=== PATIENT | female | born 1950 | race Caucasian/White ===

== ENCOUNTER → 2020-06-27 09:15 | Outpatient (BNVA) | payer MEDICARE, SELFPAY | PROVIDERS: PCP Internal Medicine; Referring Provider Internal Medicine; Visit Provider Internal Medicine | DX: I48.20 Chronic atrial fibrillation, unspecified (principal); Z51.81 Encounter for therapeutic drug level monitoring; Z79.01 Long term (current) use of anticoagulants | CPT/HCPCS: 85610; 99211 ==

== ENCOUNTER → 2020-07-09 09:36 | Outpatient (BNVA) | payer MEDICARE, SELFPAY | PROVIDERS: PCP Internal Medicine; Visit Provider Internal Medicine | DX: I48.20 Chronic atrial fibrillation, unspecified (principal); Z51.81 Encounter for therapeutic drug level monitoring; Z79.01 Long term (current) use of anticoagulants | CPT/HCPCS: 85610; 99211 ==

== ENCOUNTER 2020-07-23 07:55 | Outpatient (REF) | payer MEDICARE, SELFPAY ==
[2020-07-23 11:42] LABS: Hematocrit 36.6 % (37-47); Hemoglobin 11.2 g/dl (12.0-16.0); Mean Corpuscular HGB Conc 30.6 g/dl (31.0-35.0); Mean Corpuscular Hemoglobin 28.9 pg (27.0-33.0); Mean Corpuscular Volume 94.3 fL (80-98); Platelet Count 231 X10*3/uL (160-400); Red Blood Count 3.88 X10*6/uL (4.20-5.50); Red Cell Distribution Width 14.7 % (11.0-16.0); White Blood Count 7.2 X10*3/uL (4.8-10.8)
[2020-07-23 11:50] LABS: Estimated Average Glucose 148 mg/dL; Hemoglobin A1c % 6.8 %
[2020-07-23 11:54] LABS: Alanine Aminotransferase 14 U/L (0-31); Anion Gap 13 (12-20); Aspartate Amino Transferase 12 U/L (5-31); Blood Urea Nitrogen 24 mg/dL (9-16); Calcium 8.9 mg/dL (8.4-10.2); Carbon Dioxide 27 mmol/L (22-29); Chloride 106 mmol/L (96-108); Cholesterol 168 mg/dL; Estimated Glomerular Filt Rate 52; Glucose Fasting 173 mg/dL (60-99); HDL Cholesterol 39 mg/dL; LDL Cholesterol Calculated 89 mg/dl; Potassium 5.2 mmol/l (3.3-5.1); Sodium 141 mmol/L (135-145); Triglycerides 200 mg/dL
[2020-07-23 12:02] LABS: Ferritin 22 ng/mL (10-250); Vitamin D 25-OH Total 49.3 ng/mL (>30)
[2020-07-23 14:28] LABS: Creatinine Urine 80.59 mg/dL; Microalbum/Creatinine Ratio Ur 68.2 ug/mg cr
== END 2020-07-23 07:56 | disposition home or self-care (01) ==
LOC: HO.HMGCLDS 07:55
PROVIDERS: PCP Internal Medicine; Visit Provider Internal Medicine
DX: I48.91 Unspecified atrial fibrillation (principal); E11.9 Type 2 diabetes mellitus without complications; D50.9 Iron deficiency anemia, unspecified; E78.5 Hyperlipidemia, unspecified; Z78.0 Asymptomatic menopausal state
CPT/HCPCS: 36415; 80048; 80061; 82043; 82306; 82728; 83036; 84450; 84460; 85027

== ENCOUNTER → 2020-07-25 09:21 | Outpatient (BNVA) | payer MEDICARE, SELFPAY | PROVIDERS: PCP Internal Medicine; Visit Provider Internal Medicine | DX: I48.20 Chronic atrial fibrillation, unspecified (principal); Z51.81 Encounter for therapeutic drug level monitoring; Z79.01 Long term (current) use of anticoagulants | CPT/HCPCS: 85610; 99211 ==

== ENCOUNTER → 2020-08-29 09:45 | Outpatient (BNVA) | payer MEDICARE, SELFPAY | PROVIDERS: PCP Internal Medicine; Visit Provider Internal Medicine | DX: I48.20 Chronic atrial fibrillation, unspecified (principal); Z51.81 Encounter for therapeutic drug level monitoring; Z79.01 Long term (current) use of anticoagulants | CPT/HCPCS: 85610; 99211 ==

== ENCOUNTER → 2020-09-26 09:50 | Outpatient (BNVA) | payer MEDICARE, SELFPAY | PROVIDERS: PCP Internal Medicine; Visit Provider Internal Medicine | DX: I48.20 Chronic atrial fibrillation, unspecified (principal); Z51.81 Encounter for therapeutic drug level monitoring; Z79.01 Long term (current) use of anticoagulants | CPT/HCPCS: 85610; 99211 ==

== ENCOUNTER → 2020-10-15 09:15 | Outpatient (BNVA) | payer MEDICARE, SELFPAY | PROVIDERS: PCP Internal Medicine; Visit Provider Internal Medicine | DX: I48.20 Chronic atrial fibrillation, unspecified (principal); Z79.01 Long term (current) use of anticoagulants; Z51.81 Encounter for therapeutic drug level monitoring | CPT/HCPCS: 85610; 99211 ==

== ENCOUNTER 2020-11-06 07:41 | Outpatient (REF) | payer MEDICARE, SELFPAY ==
[2020-11-06 11:13] LABS: MANUAL DIFF FLAG NO
[2020-11-06 11:29] LABS: Estimated Average Glucose 157 mg/dL; Hemoglobin A1c % 7.1 %
[2020-11-06 11:37] LABS: Basophils Percent Auto 0.3 % (0-2); Eosinophils Absolute Auto 0.2 X10*3/uL (0.0-0.4); Eosinophils Percent Auto 2.8 % (0-4); Hematocrit 39.7 % (37-47); Hemoglobin 12.2 g/dl (12.0-16.0); Imm Gran Abs Auto 0.04 X10*3/uL (0.00-0.03); Imm Gran Pct Auto 0.6 % (0.0-0.4); Lymphocytes Absolute Auto 2.3 X10*3/uL (1.2-4.9); Lymphocytes Percent Auto 32.3 % (20-40); Mean Corpuscular HGB Conc 30.7 g/dl (31.0-35.0); Mean Corpuscular Hemoglobin 28.7 pg (27.0-33.0); Mean Corpuscular Volume 93.4 fL (80-98); Mean Platelet Volume 12.7 fL (9.4-12.3); Monocytes Absolute Auto 0.5 X10*3/uL (0.1-1.2); Monocytes Percent Auto 6.8 % (2-11); Neutrophils Absolute Auto 4.1 X10*3/uL (2.0-8.3); Neutrophils Percent Auto 57.2 % (45-73); Platelet Count 243 X10*3/uL (160-400); Red Blood Count 4.25 X10*6/uL (4.20-5.50); Red Cell Distribution Width 14.8 % (11.0-16.0); White Blood Count 7.2 X10*3/uL (4.8-10.8)
[2020-11-06 11:53] LABS: Creatinine Urine 72.19 mg/dL; Microalbum/Creatinine Ratio Ur 135.7 ug/mg cr
[2020-11-06 11:54] LABS: Alanine Aminotransferase 17 U/L (0-31); Anion Gap 19 (12-20); Aspartate Amino Transferase 14 U/L (5-31); Blood Urea Nitrogen 30 mg/dL (9-16); Carbon Dioxide 21 mmol/L (22-29); Chloride 107 mmol/L (96-108); Cholesterol 180 mg/dL; Estimated Glomerular Filt Rate 49; Glucose Fasting 146 mg/dL (60-99); HDL Cholesterol 35 mg/dL; LDL Cholesterol Calculated 100 mg/dl; Sodium 142 mmol/L (135-145); Triglycerides 225 mg/dL
[2020-11-06 12:18] LABS: Vitamin D 25-OH Total 50.9 ng/mL (>30)
== END 2020-11-06 07:42 | disposition home or self-care (01) ==
LOC: HO.HMGCLDS 07:41
PROVIDERS: PCP Internal Medicine; Visit Provider Internal Medicine
DX: I48.0 Paroxysmal atrial fibrillation (principal); D64.9 Anemia, unspecified; E11.29 Type 2 diabetes mellitus with other diabetic kidney complication; E78.2 Mixed hyperlipidemia; I10 Essential (primary) hypertension; R80.9 Proteinuria, unspecified; Z78.0 Asymptomatic menopausal state; Z79.01 Long term (current) use of anticoagulants
CPT/HCPCS: 36415; 80048; 80061; 82043; 82306; 83036; 84450; 84460; 85025

== ENCOUNTER → 2020-11-07 09:15 | Outpatient (BNVA) | payer MEDICARE, SELFPAY | PROVIDERS: PCP Internal Medicine; Visit Provider Internal Medicine | DX: I48.20 Chronic atrial fibrillation, unspecified (principal); Z51.81 Encounter for therapeutic drug level monitoring; Z79.01 Long term (current) use of anticoagulants | CPT/HCPCS: 85610; 99211 ==

== ENCOUNTER → 2020-12-05 09:07 | Outpatient (BNVA) | payer MEDICARE, SELFPAY | PROVIDERS: PCP Internal Medicine; Visit Provider Internal Medicine | DX: I48.20 Chronic atrial fibrillation, unspecified (principal); Z51.81 Encounter for therapeutic drug level monitoring; Z79.01 Long term (current) use of anticoagulants | CPT/HCPCS: 85610; 99211 ==

== ENCOUNTER → 2020-12-20 09:33 | Outpatient (BNVA) | payer MEDICARE, SELFPAY | PROVIDERS: PCP Internal Medicine; Visit Provider Internal Medicine | DX: I48.20 Chronic atrial fibrillation, unspecified (principal); Z51.81 Encounter for therapeutic drug level monitoring; Z79.01 Long term (current) use of anticoagulants | CPT/HCPCS: 85610; 99211 ==

== ENCOUNTER → 2021-01-06 09:39 | Outpatient (BNVA) | payer MEDICARE, SELFPAY | PROVIDERS: PCP Internal Medicine; Visit Provider Internal Medicine | DX: I48.20 Chronic atrial fibrillation, unspecified (principal); Z51.81 Encounter for therapeutic drug level monitoring; Z79.01 Long term (current) use of anticoagulants | CPT/HCPCS: 85610; 99211 ==

== ENCOUNTER → 2021-01-22 10:01 | Outpatient (BNVA) | payer MEDICARE, SELFPAY | PROVIDERS: PCP Internal Medicine; Visit Provider Internal Medicine | DX: I48.20 Chronic atrial fibrillation, unspecified (principal); Z51.81 Encounter for therapeutic drug level monitoring; Z79.01 Long term (current) use of anticoagulants | CPT/HCPCS: 85610; 99211 ==

== ENCOUNTER 2021-02-15 07:03 | Outpatient (REF) | payer MEDICARE, SELFPAY ==
[2021-02-15 11:33] LABS: Estimated Average Glucose 154 mg/dL
[2021-02-15 11:47] LABS: Alanine Aminotransferase 18 U/L (0-31); Anion Gap 14 (12-20); Aspartate Amino Transferase 14 U/L (5-31); Blood Urea Nitrogen 29 mg/dL (9-16); Calcium 9.3 mg/dL (8.4-10.2); Carbon Dioxide 26 mmol/L (22-29); Chloride 107 mmol/L (96-108); Cholesterol 220 mg/dL; Estimated Glomerular Filt Rate 51; Glucose Fasting 139 mg/dL (60-99); HDL Cholesterol 37 mg/dL; LDL Cholesterol Calculated 123 mg/dl; Potassium 5.5 mmol/L (3.3-5.1); Sodium 141 mmol/L (135-145); Triglycerides 301 mg/dL
== END 2021-02-15 07:04 | disposition home or self-care (01) ==
LOC: HO.HMGCLDS 07:03
PROVIDERS: PCP Internal Medicine; Visit Provider Internal Medicine
DX: E11.29 Type 2 diabetes mellitus with other diabetic kidney complication (principal); E78.2 Mixed hyperlipidemia; I10 Essential (primary) hypertension; R80.9 Proteinuria, unspecified
CPT/HCPCS: 36415; 80048; 80061; 83036; 84450; 84460

== ENCOUNTER → 2021-02-17 09:38 | Outpatient (BNVA) | payer MEDICARE, SELFPAY | PROVIDERS: PCP Internal Medicine; Visit Provider Internal Medicine | DX: I48.20 Chronic atrial fibrillation, unspecified (principal); Z51.81 Encounter for therapeutic drug level monitoring; Z79.01 Long term (current) use of anticoagulants | CPT/HCPCS: 85610; 99211 ==

== ENCOUNTER 2021-03-11 07:51 | Outpatient (REF) | payer MEDICARE, SELFPAY ==
[2021-03-11 12:05] LABS: Anion Gap 14 (12-20); Blood Urea Nitrogen 25 mg/dL (9-16); Calcium 9.3 mg/dL (8.4-10.2); Carbon Dioxide 27 mmol/L (22-29); Chloride 107 mmol/L (96-108); Estimated Glomerular Filt Rate 55; Glucose Fasting 155 mg/dL (60-99); Potassium 4.9 mmol/L (3.3-5.1); Sodium 143 mmol/L (135-145)
== END 2021-03-11 07:52 | disposition home or self-care (01) ==
LOC: HO.HMGCLDS 07:51
PROVIDERS: PCP Internal Medicine; Visit Provider Internal Medicine
DX: E87.5 Hyperkalemia (principal); I10 Essential (primary) hypertension
CPT/HCPCS: 36415; 80048

== ENCOUNTER → 2021-03-17 09:41 | Outpatient (BNVA) | payer MEDICARE, SELFPAY | PROVIDERS: PCP Internal Medicine; Visit Provider Internal Medicine | DX: I48.20 Chronic atrial fibrillation, unspecified (principal); Z51.81 Encounter for therapeutic drug level monitoring; Z79.01 Long term (current) use of anticoagulants | CPT/HCPCS: 85610; 99211 ==

== ENCOUNTER → 2021-04-14 09:44 | Outpatient (BNVA) | payer MEDICARE, SELFPAY | PROVIDERS: PCP Internal Medicine; Visit Provider Internal Medicine | DX: I48.20 Chronic atrial fibrillation, unspecified (principal); Z51.81 Encounter for therapeutic drug level monitoring; Z79.01 Long term (current) use of anticoagulants | CPT/HCPCS: 85610; 99211 ==

== ENCOUNTER → 2021-05-13 09:58 | Outpatient (BNVA) | payer MEDICARE, SELFPAY | PROVIDERS: PCP Internal Medicine; Visit Provider Internal Medicine | DX: I48.20 Chronic atrial fibrillation, unspecified (principal); Z51.81 Encounter for therapeutic drug level monitoring; Z79.01 Long term (current) use of anticoagulants | CPT/HCPCS: 85610; 99211 ==

== ENCOUNTER 2021-05-14 08:00 | Outpatient (REF) | payer MEDICARE, SELFPAY ==
[2021-05-14 11:32] LABS: Estimated Average Glucose 157 mg/dL; Hemoglobin A1c % 7.1 %
[2021-05-14 12:31] LABS: Alanine Aminotransferase 16 U/L (0-31); Anion Gap 15 (12-20); Aspartate Amino Transferase 14 U/L (5-31); Blood Urea Nitrogen 37 mg/dL (9-16); Calcium 9.3 mg/dL (8.4-10.2); Carbon Dioxide 23 mmol/L (22-29); Chloride 108 mmol/L (96-108); Cholesterol 175 mg/dL; Estimated Glomerular Filt Rate 43; Glucose Fasting 106 mg/dL (60-99); HDL Cholesterol 33 mg/dL; LDL Cholesterol Calculated 95 mg/dl; Potassium 5.4 mmol/L (3.3-5.1); Sodium 141 mmol/L (135-145); Triglycerides 235 mg/dL
[2021-05-14 12:34] LABS: Vitamin D 25-OH Total 47.7 ng/mL (>30)
== END 2021-05-14 08:01 | disposition home or self-care (01) ==
LOC: HO.HMGCLDS 08:00
PROVIDERS: PCP Internal Medicine; Visit Provider Internal Medicine
DX: E87.5 Hyperkalemia (principal); E78.2 Mixed hyperlipidemia; I10 Essential (primary) hypertension; E11.29 Type 2 diabetes mellitus with other diabetic kidney complication; R80.9 Proteinuria, unspecified
CPT/HCPCS: 36415; 80048; 80061; 82306; 83036; 84450; 84460

== ENCOUNTER → 2021-05-28 09:33 | Outpatient (BNVA) | payer MEDICARE, SELFPAY | PROVIDERS: PCP Internal Medicine; Visit Provider Internal Medicine | DX: I48.20 Chronic atrial fibrillation, unspecified (principal); Z51.81 Encounter for therapeutic drug level monitoring; Z79.01 Long term (current) use of anticoagulants | CPT/HCPCS: 85610; 99211 ==

== ENCOUNTER → 2021-06-24 09:38 | Outpatient (BNVA) | payer MEDICARE, SELFPAY | PROVIDERS: PCP Internal Medicine; Visit Provider Internal Medicine | DX: I48.20 Chronic atrial fibrillation, unspecified (principal); Z51.81 Encounter for therapeutic drug level monitoring; Z79.01 Long term (current) use of anticoagulants | CPT/HCPCS: 85610; 99211 ==

== ENCOUNTER → 2021-07-22 09:43 | Outpatient (BNVA) | payer MEDICARE, SELFPAY | PROVIDERS: PCP Internal Medicine; Visit Provider Internal Medicine | DX: Z79.01 Long term (current) use of anticoagulants (principal) | CPT/HCPCS: 85610; 99211 ==

== ENCOUNTER 2021-07-31 10:15 | Outpatient (REF) | payer MEDICARE, SELFPAY ==
--- NOTE | ~2021-07-31 | MM_ITS ---
EXAMINATION: BONE DENSITOMETRY CLINICAL INDICATION: Asymptomatic menopausal state. COMPARISON: Baseline BD dated 06/25/2017. TECHNIQUE: Using a [employer] DXA System (software version: 13.1) manufactured by [employer], dual-energy x-ray absorptiometry was performed of the lumbar spine and left hip. The images are of good technical quality. Summary results are attached. FINDINGS: AP SPINE L1-L4: Current: BMD 1.006 g/cm2, Z-score -0.5, T-score -1.4, osteopenia, 9.7% increase from baseline (<5% change is not significant). Baseline: BMD 0.917 g/cm2. LEFT FEMUR, NECK: Current: BMD 0.707 g/cm2, Z-score -1.1, T-score -2.4, osteopenia. Baseline: BMD 0.736 g/cm2. LEFT FEMUR, TOTAL: Current: BMD 0.805 g/cm2, Z-score -0.6, T-score -1.6, osteopenia, 5.2% decrease from baseline (<5% change is not significant). Baseline: BMD 0.849 g/cm2. IDENTIFIED RISK FACTORS: Menopause. HISTORY OF FRACTURE: None listed. MEDICATIONS: Multivitamins. MM/XR DEXA axial skeleton IMPRESSION: 1. DIAGNOSIS: Osteopenia based on the lowest T-score value of -2.4 in the femoral neck applying World Health Organization criteria. 2. 10-YEAR FRACTURE RISK PREDICTION, FRAX: Major osteoporotic fracture (clinical spine, forearm, hip or shoulder) 13.6%. Hip fracture 3.4%. 3. Treatment Recommendations: NOF guidelines recommend consideration for treatment in postmenopausal women and men age 50 and older presenting with the following: -A hip or vertebral (clinical or morphometric) fracture. -T-score less than or equal to -2.5 at the femoral neck or spine after appropriate evaluation to exclude secondary causes. -Low bone mass at the hip or spine and a 10-year fracture probability by FRAX of greater than or equal to 3% for hip fracture or greater than or equal to 20% for major osteoporotic fracture based on the [place] adapted WHO algorithm. 4. Other Recommendations: All treatment decisions require clinical judgment and consideration of individual patient factors, including patient preferences, comorbidities, previous drug use, risk factors not captured in the FRAX model (e.g. frailty, falls, vitamin D deficiency, increased bone turnover, interval significant decline in bone density) and possible under or overestimation of fracture risk by FRAX. Additional medical evaluation for secondary cause of low bone mineral density may be appropriate. FUTURE SCAN RECOMMENDATION: People with diagnosed cases of osteoporosis or at high risk for fracture should have regular bone mineral density tests. For patients eligible for Medicare, routine testing is allowed once every 2 years. The testing frequency can be increased to one year for patients who have rapidly progressing disease, those who are receiving or discontinuing medical therapy to restore bone mass, or have additional risk factors.
== END 2021-07-31 10:16 | disposition home or self-care (01) ==
LOC: HO.MAMMO 10:15
PROVIDERS: Visit Provider Internal Medicine
DX: Z13.820 Encounter for screening for osteoporosis (principal); M85.89 Other specified disorders of bone density and structure, multiple sites; Z78.0 Asymptomatic menopausal state; Z79.899 Other long term (current) drug therapy
CPT/HCPCS: 77080

== ENCOUNTER → 2021-08-06 10:43 | Outpatient (BNVA) | payer MEDICARE, SELFPAY | PROVIDERS: PCP Internal Medicine; Visit Provider Internal Medicine | DX: I48.20 Chronic atrial fibrillation, unspecified (principal); Z51.81 Encounter for therapeutic drug level monitoring; Z79.01 Long term (current) use of anticoagulants | CPT/HCPCS: 85610; 99211 ==

== ENCOUNTER 2021-08-08 07:29 | Outpatient (REF) | payer MEDICARE, SELFPAY ==
[2021-08-08 12:09] LABS: Estimated Average Glucose 163 mg/dL; Hemoglobin A1c % 7.3 %
[2021-08-08 12:16] LABS: Alanine Aminotransferase 20 U/L (0-31); Anion Gap 15 (12-20); Aspartate Amino Transferase 16 U/L (5-31); Blood Urea Nitrogen 31 mg/dL (9-16); Calcium 9.2 mg/dL (8.4-10.2); Carbon Dioxide 25 mmol/L (22-29); Chloride 104 mmol/L (96-108); Cholesterol 187 mg/dL; Estimated Glomerular Filt Rate 49; Glucose Fasting 138 mg/dL (60-99); HDL Cholesterol 36 mg/dL; LDL Cholesterol Calculated 104 mg/dl; Potassium 4.7 mmol/L (3.3-5.1); Sodium 139 mmol/L (135-145); Triglycerides 239 mg/dL
== END 2021-08-08 07:30 | disposition home or self-care (01) ==
LOC: HO.HMGCLDS 07:29
PROVIDERS: PCP Internal Medicine; Visit Provider Internal Medicine
DX: E87.5 Hyperkalemia (principal); E11.29 Type 2 diabetes mellitus with other diabetic kidney complication; E78.2 Mixed hyperlipidemia; I10 Essential (primary) hypertension; R80.9 Proteinuria, unspecified
CPT/HCPCS: 36415; 80048; 80061; 83036; 84450; 84460

== ENCOUNTER → 2021-08-19 09:45 | Outpatient (BNVA) | payer MEDICARE, SELFPAY | PROVIDERS: PCP Internal Medicine; Visit Provider Internal Medicine | DX: I48.20 Chronic atrial fibrillation, unspecified (principal); Z51.81 Encounter for therapeutic drug level monitoring; Z79.01 Long term (current) use of anticoagulants | CPT/HCPCS: 85610; 99211 ==

== ENCOUNTER → 2021-09-04 09:54 | Outpatient (BNVA) | payer MEDICARE, SELFPAY | PROVIDERS: PCP Internal Medicine; Visit Provider Internal Medicine | DX: I48.20 Chronic atrial fibrillation, unspecified (principal); Z51.81 Encounter for therapeutic drug level monitoring; Z79.01 Long term (current) use of anticoagulants | CPT/HCPCS: 85610; 99211 ==

== ENCOUNTER → 2021-10-02 09:47 | Outpatient (BNVA) | payer MEDICARE, SELFPAY | PROVIDERS: PCP Internal Medicine; Visit Provider Internal Medicine | DX: I48.20 Chronic atrial fibrillation, unspecified (principal); Z51.81 Encounter for therapeutic drug level monitoring; Z79.01 Long term (current) use of anticoagulants | CPT/HCPCS: 85610; 99211 ==

== ENCOUNTER → 2021-10-23 10:06 | Outpatient (BNVA) | payer MEDICARE, SELFPAY | PROVIDERS: PCP Internal Medicine; Visit Provider Internal Medicine | DX: I48.20 Chronic atrial fibrillation, unspecified (principal); Z51.81 Encounter for therapeutic drug level monitoring; Z79.01 Long term (current) use of anticoagulants | CPT/HCPCS: 85610; 99211 ==

== ENCOUNTER → 2021-11-19 10:09 | Outpatient (BNVA) | payer MEDICARE, SELFPAY | PROVIDERS: PCP Internal Medicine; Visit Provider Internal Medicine | DX: I48.20 Chronic atrial fibrillation, unspecified (principal); Z51.81 Encounter for therapeutic drug level monitoring; Z79.01 Long term (current) use of anticoagulants | CPT/HCPCS: 85610; 99211 ==

== ENCOUNTER → 2021-12-10 10:34 | Outpatient (BNVA) | payer MEDICARE, SELFPAY | PROVIDERS: PCP Internal Medicine; Visit Provider Internal Medicine | DX: I48.20 Chronic atrial fibrillation, unspecified (principal); Z79.01 Long term (current) use of anticoagulants; Z51.81 Encounter for therapeutic drug level monitoring | CPT/HCPCS: 85610; 99211 ==

== ENCOUNTER 2021-12-11 07:39 | Outpatient (REF) | payer MEDICARE, SELFPAY ==
[2021-12-11 11:40] LABS: Alanine Aminotransferase 19 U/L (0-31); Anion Gap 16 (12-20); Aspartate Amino Transferase 14 U/L (5-31); Blood Urea Nitrogen 31 mg/dL (9-16); Calcium 9.7 mg/dL (8.4-10.2); Carbon Dioxide 25 mmol/L (22-29); Chloride 107 mmol/L (96-108); Cholesterol 181 mg/dL; Estimated Glomerular Filt Rate 45; Glucose Fasting 166 mg/dL (60-99); HDL Cholesterol 31 mg/dL; LDL Cholesterol Calculated 94 mg/dl; Potassium 5.3 mmol/L (3.3-5.1); Sodium 143 mmol/L (135-145); Triglycerides 284 mg/dL
[2021-12-11 12:06] LABS: Vitamin D 25-OH Total 52.3 ng/mL (>30)
[2021-12-11 12:09] LABS: Creatinine Urine 37.96 mg/dL; Microalbum/Creatinine Ratio Ur 55.3 ug/mg cr
[2021-12-11 12:10] LABS: Estimated Average Glucose 174 mg/dL; Hemoglobin A1c % 7.7 %
== END 2021-12-11 07:40 | disposition home or self-care (01) ==
LOC: HO.HMGCLDS 07:39
PROVIDERS: Visit Provider Internal Medicine
DX: E78.2 Mixed hyperlipidemia (principal); I10 Essential (primary) hypertension; E11.29 Type 2 diabetes mellitus with other diabetic kidney complication; R80.9 Proteinuria, unspecified; Z78.0 Asymptomatic menopausal state
CPT/HCPCS: 36415; 80048; 80061; 82043; 82306; 83036; 84450; 84460

== ENCOUNTER → 2022-01-05 09:54 | Outpatient (BNVA) | payer MEDICARE, SELFPAY | PROVIDERS: PCP Internal Medicine; Visit Provider Internal Medicine | DX: I48.20 Chronic atrial fibrillation, unspecified (principal); Z79.01 Long term (current) use of anticoagulants; Z51.81 Encounter for therapeutic drug level monitoring | CPT/HCPCS: 85610; 99211 ==

== ENCOUNTER → 2022-01-26 09:50 | Outpatient (BNVA) | payer MEDICARE, SELFPAY | PROVIDERS: PCP Internal Medicine; Visit Provider Internal Medicine | DX: I48.20 Chronic atrial fibrillation, unspecified (principal); Z79.01 Long term (current) use of anticoagulants; Z51.81 Encounter for therapeutic drug level monitoring | CPT/HCPCS: 85610; 99211 ==

== ENCOUNTER → 2022-02-26 08:52 | Outpatient (BNVA) | payer MEDICARE, SELFPAY | PROVIDERS: PCP Internal Medicine; Visit Provider Internal Medicine | DX: I48.20 Chronic atrial fibrillation, unspecified (principal); Z79.01 Long term (current) use of anticoagulants; Z51.81 Encounter for therapeutic drug level monitoring | CPT/HCPCS: 85610; 99211 ==

== ENCOUNTER 2022-03-06 09:10 | Outpatient (REF) | payer MEDICARE, SELFPAY ==
[2022-03-06 11:28] LABS: Appearance Urine CLEAR; Color Urine YELLOW; Glucose Urine UA NEG (NEG); Leukocyte Esterase Urine NEG (NEG); Nitrite Urine NEG (NEG); PH 5.5 (5.0-8.0); Urine Blood NEG (NEG); Urine Ketones NEG (NEG); Urine Protein NEG (NEG-TRACE)
[2022-03-06 11:46] LABS: Creatinine Urine 69.44 mg/dL; Total Protein Urine Random < 7 mg/dL (<12)
[2022-03-06 12:03] LABS: Hematocrit 36.1 % (37.0-47.0); Hemoglobin 11.4 g/dl (12.0-16.0); Mean Corpuscular HGB Conc 31.6 g/dl (31.0-35.0); Mean Corpuscular Hemoglobin 29.3 pg (27.0-33.0); Mean Corpuscular Volume 92.8 fL (80.0-98.0); Mean Platelet Volume 12.1 fL (9.4-12.3); Platelet Count 239 X10*3/uL (160-400); Red Blood Count 3.89 X10*6/uL (4.20-5.50); Red Cell Distribution Width 14.2 % (11.0-16.0); White Blood Count 6.7 X10*3/uL (4.8-10.8)
[2022-03-06 12:22] LABS: Alanine Aminotransferase 15 U/L (0-31); Alkaline Phosphatase 77 U/L (39-117); Anion Gap 16 (12-20); Aspartate Amino Transferase 13 U/L (5-31); Bilirubin Total 0.6 mg/dL (0.0-1.0); Blood Urea Nitrogen 41 mg/dL (9-16); Calcium 9.2 mg/dL (8.4-10.2); Carbon Dioxide 24 mmol/L (22-29); Chloride 105 mmol/L (96-108); Estimated Glomerular Filt Rate 37; Glucose Random 186 mg/dL (60-115); Potassium 5.6 mmol/L (3.3-5.1); Sodium 139 mmol/L (135-145); Total Protein 7.1 g/dL (6.5-8.0)
[2022-03-06 12:29] LABS: Vitamin D 25-OH Total 49.8 ng/mL (>30)
[2022-03-09 15:52] LABS: Calcium (PTHI) 9.6 mg/dL (8.6-10.4); PTHI 52 pg/mL (16-77)
== END 2022-03-06 09:11 | disposition home or self-care (01) ==
LOC: HO.HMGCLDS 09:10
PROVIDERS: Absent Provider Internal Medicine Hypertension Specialist; PCP Internal Medicine; Visit Provider Internal Medicine
DX: N18.31 Chronic kidney disease, stage 3a (principal)
CPT/HCPCS: 36415; 80053; 81003; 82306; 83970; 84156; 85027

== ENCOUNTER → 2022-03-27 09:59 | Outpatient (BNVA) | payer MEDICARE, SELFPAY | PROVIDERS: PCP Internal Medicine; Visit Provider Internal Medicine | DX: I48.20 Chronic atrial fibrillation, unspecified (principal); Z51.81 Encounter for therapeutic drug level monitoring; Z79.01 Long term (current) use of anticoagulants | CPT/HCPCS: 85610; 99211 ==

== ENCOUNTER → 2022-04-13 09:35 | Outpatient (BNVA) | payer MEDICARE, SELFPAY | PROVIDERS: PCP Internal Medicine; Visit Provider Internal Medicine | DX: I48.20 Chronic atrial fibrillation, unspecified (principal); Z51.81 Encounter for therapeutic drug level monitoring; Z79.01 Long term (current) use of anticoagulants | CPT/HCPCS: 85610; 99211 ==

== ENCOUNTER 2022-04-27 11:09 | Outpatient (REF) | payer MEDICARE, SELFPAY ==
--- NOTE | ~2022-04-27 | US_ITS ---
EXAMINATION: US RETROPERITONEAL LIMITED (RENAL ONLY) CLINICAL INFORMATION: CKD 3. COMPARISON: None TECHNIQUE: Real-time imaging of the kidneys. FINDINGS: RIGHT KIDNEY: 11.6 x 4.4 x 4.5 cm (SAG x AP x TRV). The kidney is normal in size and contour. There is overall increased echogenicity of the right kidney. Renal cortical thickness is normal. No calculi or focal parenchymal lesions. No hydronephrosis. LEFT KIDNEY: 10.7 x 4.5 x 4.3 cm (SAG x AP x TRV). The kidney is normal in size and contour. There is overall increased echogenicity of the left kidney. Renal cortical thickness is normal. No calculi or focal parenchymal lesions. No hydronephrosis. US/US renal BI IMPRESSION: -Increased echogenicity of both kidneys consistent with provided history of medical renal disease. -No renal calculi or hydronephrosis of either kidney.
== END 2022-04-27 11:10 | disposition home or self-care (01) ==
LOC: HO.HMGCX 11:09
PROVIDERS: PCP Internal Medicine; Visit Provider Internal Medicine Hypertension Specialist
DX: N18.31 Chronic kidney disease, stage 3a (principal)
CPT/HCPCS: 76775

== ENCOUNTER → 2022-05-14 11:18 | Outpatient (BNVA) | payer MEDICARE, SELFPAY | PROVIDERS: PCP Internal Medicine; Visit Provider Internal Medicine | DX: I48.20 Chronic atrial fibrillation, unspecified (principal); Z79.01 Long term (current) use of anticoagulants; Z51.81 Encounter for therapeutic drug level monitoring | CPT/HCPCS: 85610; 99211 ==

== ENCOUNTER 2022-05-20 07:59 | Outpatient (REF) | payer MEDICARE, SELFPAY ==
[2022-05-20 12:31] LABS: Anion Gap 16 (12-20); Blood Urea Nitrogen 38 mg/dL (9-16); Calcium 9.2 mg/dL (8.4-10.2); Carbon Dioxide 22 mmol/L (22-29); Chloride 109 mmol/L (96-108); Estimated Glomerular Filt Rate 39; Glucose Random 145 mg/dL (60-115); Sodium 142 mmol/L (135-145)
== END 2022-05-20 08:00 | disposition home or self-care (01) ==
LOC: HO.HMGCLDS 07:59
PROVIDERS: PCP Internal Medicine; Visit Provider Internal Medicine Hypertension Specialist
DX: E87.5 Hyperkalemia (principal)
CPT/HCPCS: 36415; 80048

== ENCOUNTER 2022-06-06 07:36 | Outpatient (REF) | payer MEDICARE, SELFPAY ==
[2022-06-06 11:26] LABS: Alanine Aminotransferase 20 U/L (0-31); Anion Gap 17 (12-20); Aspartate Amino Transferase 17 U/L (5-31); Blood Urea Nitrogen 40 mg/dL (9-16); Calcium 9.2 mg/dL (8.4-10.2); Carbon Dioxide 20 mmol/L (22-29); Chloride 106 mmol/L (96-108); Cholesterol 167 mg/dL; Estimated Glomerular Filt Rate 35; Glucose Fasting 107 mg/dL (60-99); HDL Cholesterol 38 mg/dL; LDL Cholesterol Calculated 95 mg/dl; Potassium 4.7 mmol/L (3.3-5.1); Sodium 138 mmol/L (135-145); Triglycerides 171 mg/dL
[2022-06-06 11:32] LABS: Estimated Average Glucose 126 mg/dL
== END 2022-06-06 07:37 | disposition home or self-care (01) ==
LOC: HO.HMGCLDS 07:36
PROVIDERS: PCP Internal Medicine; Visit Provider Internal Medicine
DX: E11.29 Type 2 diabetes mellitus with other diabetic kidney complication (principal); E11.319 Type 2 diabetes mellitus with unspecified diabetic retinopathy without macular edema; E78.2 Mixed hyperlipidemia; E87.5 Hyperkalemia; R80.9 Proteinuria, unspecified; I10 Essential (primary) hypertension
CPT/HCPCS: 36415; 80048; 80061; 83036; 84450; 84460

== ENCOUNTER → 2022-06-10 09:36 | Outpatient (BNVA) | payer MEDICARE, SELFPAY | PROVIDERS: PCP Internal Medicine; Visit Provider Internal Medicine | DX: I48.20 Chronic atrial fibrillation, unspecified (principal); Z79.01 Long term (current) use of anticoagulants; Z51.81 Encounter for therapeutic drug level monitoring | CPT/HCPCS: 85610; 99211 ==

== ENCOUNTER → 2022-06-29 10:43 | Outpatient (BNVA) | payer MEDICARE, SELFPAY | PROVIDERS: PCP Internal Medicine; Visit Provider Internal Medicine | DX: I48.20 Chronic atrial fibrillation, unspecified (principal); Z51.81 Encounter for therapeutic drug level monitoring; Z79.01 Long term (current) use of anticoagulants | CPT/HCPCS: 85610; 99211 ==

== ENCOUNTER → 2022-07-24 09:50 | Outpatient (BNVA) | payer MEDICARE, SELFPAY | PROVIDERS: PCP Internal Medicine; Visit Provider Internal Medicine | DX: I48.20 Chronic atrial fibrillation, unspecified (principal); Z79.01 Long term (current) use of anticoagulants; Z51.81 Encounter for therapeutic drug level monitoring | CPT/HCPCS: 85610; 99211 ==

== ENCOUNTER 2022-08-10 07:27 | Outpatient (REF) | payer MEDICARE, SELFPAY ==
[2022-08-10 13:01] LABS: Anion Gap 18 (12-20); Blood Urea Nitrogen 48 mg/dL (9-16); Calcium 9.1 mg/dL (8.4-10.2); Carbon Dioxide 21 mmol/L (22-29); Chloride 109 mmol/L (96-108); Estimated Glomerular Filt Rate 40; Glucose Random 120 mg/dL (60-115); Potassium 4.9 mmol/L (3.3-5.1); Sodium 143 mmol/L (135-145)
== END 2022-08-10 07:28 | disposition home or self-care (01) ==
LOC: HO.HMGCLDS 07:27
PROVIDERS: PCP Internal Medicine; Visit Provider Internal Medicine Hypertension Specialist
DX: N18.32 Chronic kidney disease, stage 3b (principal)
CPT/HCPCS: 36415; 80048

== ENCOUNTER → 2022-08-24 10:16 | Outpatient (BNVA) | payer MEDICARE, SELFPAY | PROVIDERS: PCP Internal Medicine; Visit Provider Internal Medicine | DX: I48.20 Chronic atrial fibrillation, unspecified (principal); Z79.01 Long term (current) use of anticoagulants; Z51.81 Encounter for therapeutic drug level monitoring | CPT/HCPCS: 85610; 99211 ==

== ENCOUNTER → 2022-09-14 09:51 | Outpatient (BNVA) | payer MEDICARE, SELFPAY | PROVIDERS: PCP Internal Medicine; Visit Provider Internal Medicine | DX: I48.20 Chronic atrial fibrillation, unspecified (principal); Z79.01 Long term (current) use of anticoagulants; Z51.81 Encounter for therapeutic drug level monitoring | CPT/HCPCS: 85610; 99211 ==

== ENCOUNTER → 2022-10-13 09:36 | Outpatient (BNVA) | payer MEDICARE, SELFPAY | PROVIDERS: PCP Internal Medicine; Visit Provider Internal Medicine | DX: I48.20 Chronic atrial fibrillation, unspecified (principal); Z79.01 Long term (current) use of anticoagulants; Z51.81 Encounter for therapeutic drug level monitoring | CPT/HCPCS: 85610; 99211 ==

== ENCOUNTER → 2022-11-06 10:03 | Outpatient (BNVA) | payer MEDICARE, SELFPAY | PROVIDERS: PCP Internal Medicine; Visit Provider Internal Medicine | DX: I48.20 Chronic atrial fibrillation, unspecified (principal); Z79.01 Long term (current) use of anticoagulants; Z51.81 Encounter for therapeutic drug level monitoring | CPT/HCPCS: 85610; 99211 ==

== ENCOUNTER → 2022-11-11 09:42 | Outpatient (BNVA) | payer MEDICARE, SELFPAY | PROVIDERS: PCP Internal Medicine; Visit Provider Internal Medicine | DX: I48.20 Chronic atrial fibrillation, unspecified (principal); Z51.81 Encounter for therapeutic drug level monitoring; Z79.01 Long term (current) use of anticoagulants | CPT/HCPCS: 85610; 99211 ==

== ENCOUNTER → 2022-11-30 10:12 | Outpatient (BNVA) | payer MEDICARE, SELFPAY | PROVIDERS: PCP Internal Medicine; Visit Provider Internal Medicine | DX: I48.20 Chronic atrial fibrillation, unspecified (principal); Z79.01 Long term (current) use of anticoagulants; Z51.81 Encounter for therapeutic drug level monitoring | CPT/HCPCS: 85610; 99211 ==

== ENCOUNTER 2022-12-11 07:37 | Outpatient (REF) | payer MEDICARE, SELFPAY ==
[2022-12-11 13:08] LABS: Creatinine Urine 37.11 mg/dL; Microalbum/Creatinine Ratio Ur 43.1 ug/mg cr
[2022-12-11 13:27] LABS: Estimated Average Glucose 128 mg/dL; Hemoglobin A1c % 6.1 %
[2022-12-11 13:58] LABS: Vitamin D 25-OH Total 50.6 ng/mL (>30)
[2022-12-11 14:15] LABS: Alanine Aminotransferase 15 U/L (0-31); Anion Gap 14 (12-20); Aspartate Amino Transferase 16 U/L (5-31); Blood Urea Nitrogen 71 mg/dL (9-16); Calcium 9.5 mg/dL (8.4-10.2); Carbon Dioxide 22 mmol/L (22-29); Chloride 112 mmol/L (96-108); Cholesterol 181 mg/dL; Estimated Glomerular Filt Rate 28; Glucose Fasting 99 mg/dL (60-99); HDL Cholesterol 36 mg/dL; LDL Cholesterol Calculated 102 mg/dl; Sodium 142 mmol/L (135-145); Triglycerides 219 mg/dL
== END 2022-12-11 07:38 | disposition home or self-care (01) ==
LOC: HO.HMGCLDS 07:37
PROVIDERS: Visit Provider Internal Medicine
DX: E11.29 Type 2 diabetes mellitus with other diabetic kidney complication (principal); E11.319 Type 2 diabetes mellitus with unspecified diabetic retinopathy without macular edema; E78.2 Mixed hyperlipidemia; I10 Essential (primary) hypertension; N95.9 Unspecified menopausal and perimenopausal disorder; R80.9 Proteinuria, unspecified; Z78.0 Asymptomatic menopausal state; N18.30 Chronic kidney disease, stage 3 unspecified
CPT/HCPCS: 36415; 80048; 80061; 82043; 82306; 83036; 84450; 84460

== ENCOUNTER 2022-12-12 07:29 | Outpatient (REF) | payer MEDICARE, SELFPAY ==
[2022-12-12 12:13] LABS: Potassium 5.4 mmol/L (3.3-5.1)
== END 2022-12-12 07:30 | disposition home or self-care (01) ==
LOC: HO.HMGCLDS 07:29
PROVIDERS: PCP Internal Medicine; Visit Provider Internal Medicine
DX: E87.5 Hyperkalemia (principal)
CPT/HCPCS: 36415; 84132

== ENCOUNTER 2022-12-15 10:26 | Outpatient (AMB) | payer MEDICARE, SELFPAY ==
[2022-12-15 10:54] VITALS: BP 130/52; PULSE 72; O2SAT 99; BMI 28.1
--- NOTE | 2022-12-15 10:54 | MHC.PC.OV ---
Vital Signs 12/15/22 10:54 Height 5 ft 3 in Weight 159 lb BMI 28.1 BP 130/52 L Blood Pressure Location Lt brachial Position Sitting Pulse 72 Pulse Source Pulse Oximeter Pulse Oximetry (%) 99 Oxygen Delivery Method Room Air Intake Visit Reasons: f/u Intake Note: Pt is here today to f/u lab results Allergies No Known Allergies Allergy (Verified 12/15/22 11:48) Medication List - Last Reconciled 12/15/22 by Genie Lynne MD aspirin (Adult Aspirin Regimen) 81 mg PO DAILY atorvastatin 10 mg PO DAILY blood sugar diagnostic (FreeStyle Lite Strips) USE TO TEST DIRECTED ONCE DAILY (E11.9) brimonidine 0.2% 1 drp ophthalmic (eye) BID digoxin 250 mcg PO DAILY diltiazem HCl 240 mg PO DAILY glipizide 5 mg PO BID hydralazine 50 mg PO TID hydrochlorothiazide 25 mg PO DAILY lancets As directed lisinopril 20 mg PO DAILY metformin 1,000 mg PO BID 90 days multivitamin 1 tab PO DAILY omega-3 fatty acids 1,200 mg PO BID pioglitazone 30 mg PO DAILY warfarin 5 mg See Protocol PO DAILY Tobacco use date assessed: 12/15/22 Fall risk assessment: No Falls in past year Last assessed Fall Risk: 12/15/22 [facility] Medical History (Updated 12/15/22 @ 11:45 by Genie Lynne MD) CKD (chronic kidney disease) stage 3, GFR 30-59 ml/min Colonoscopy refused Diabetes mellitus with microalbuminuria, without long-term current use 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, without long-term current use of insulin Essential hypertension Glaucoma Hyperkalemia Mammogram declined Mixed dyslipidemia Paroxysmal atrial fibrillation Surgical History History of placement of ear tubes Hx of cholecystectomy Family History Father Unknown family medical history Mother Unknown family medical history Son Mental health disorder Social History Housing: House Alcohol intake: never Patient Tobacco Use Status: Never used Tobacco e-Cigarette/Vaping Use: Never Used service: No Current occupational status: retired Cognitive needs: No Hearing needs: No Vision needs: No Questionnaire Thrive Questionnaire Date Thrive assessed: 12/15/21 AUDIT C Alcohol Use Questionnaire (AUDIT-C) 1. How often do you have a drink containing alcohol?: Never Total Score: 0 EDE-7 AMB Questionnaire EDE-7 Date EDE - 7 assessed: 12/15/21 Source: Developed by Drs. Jeremy Fletcher, Светлана Bess, Garcia Gasca and colleagues, with an educational martir from [employer]. Physical exam (Primary Care) Vital Signs: Last Vital Signs Pulse 72 12/15/22 10:54 BP 130/52 L 12/15/22 10:54 Pulse Ox 99 12/15/22 10:54 Oxygen Delivery Method Room Air 12/15/22 10:54 BMI result Body Mass Index 28.1 Tobacco/Smoking Status: Tobacco use Status Tobacco use date assessed 12/15/22 12/15/22 10:55 Patient Tobacco Use Status Never used Tobacco 12/15/22 10:55 e-Cigarette/Vaping Use Never Used 12/15/22 10:55 Thrive Assessment: Date of Thrive Assessment Date Thrive assessed 12/15/21 12/15/22 10:55 Assessment and Plan Assessment & Plan (1) Hyperkalemia: Code(s): E87.5 - Hyperkalemia (2) Mixed dyslipidemia: Code(s): E78.2 - Mixed hyperlipidemia (3) Essential hypertension: Code(s): I10 - Essential (primary) hypertension (4) Diabetes mellitus with microalbuminuria, without long-term current use of insulin: Code(s): E11.29 - Type 2 diabetes mellitus with other diabetic kidney complication; R80.9 - Proteinuria, unspecified Orders: Orders Basic Metabolic Panel Fasting Today E87.5 - Hyperkalemia, N18.30 - Chronic kidney disease, stage 3 unspecified Comprehensive [place]. Panel Fast 3 Months E11.29 - Type 2 diabetes mellitus with other diabetic kidney complication, E78.2 - Mixed hyperlipidemia, E87.5 - Hyperkalemia, I10 - Essential (primary) hypertension, N18.30 - Chronic kidney disease, stage 3 unspecified, R80.9 - Proteinuria, unspecified Lipid Panel 3 Months E11.29 - Type 2 diabetes mellitus with other diabetic kidney complication, E78.2 - Mixed hyperlipidemia, E87.5 - Hyperkalemia, I10 - Essential (primary) hypertension, N18.30 - Chronic kidney disease, stage 3 unspecified, R80.9 - Proteinuria, unspecified Hemoglobin A1c 3 Months E11.29 - Type 2 diabetes mellitus with other diabetic kidney complication, E78.2 - Mixed hyperlipidemia, E87.5 - Hyperkalemia, I10 - Essential (primary) hypertension, N18.30 - Chronic kidney disease, stage 3 unspecified, R80.9 - Proteinuria, unspecified Vitamin D 25-OH Total 3 Months E11.29 - Type 2 diabetes mellitus with other diabetic kidney complication, E78.2 - Mixed hyperlipidemia, E87.5 - Hyperkalemia, I10 - Essential (primary) hypertension, N18.30 - Chronic kidney disease, stage 3 unspecified, R80.9 - Proteinuria, unspecified Medications: New Januvia (sitagliptin phosphate) 100 mg PO DAILY 30 tabs 5RF NS Discontinued metformin Discontinued Reason: Doctor's Order 1,000 mg PO BID 180 tabs 1RF 90 days Coding Level of Care Code Est Pt Level 4 (22446) Diagnoses Hyperkalemia E87.5 Mixed dyslipidemia E78.2 Essential hypertension I10 Diabetes mellitus with microalbuminuria, without long-term current use of insulin E11.29; R80.9
== END 2022-12-15 11:49 | disposition home or self-care (01) ==
LOC: HO.HMGC 10:26
PROVIDERS: PCP Internal Medicine; Visit Provider Internal Medicine
DX: E87.5 Hyperkalemia (principal); E78.2 Mixed hyperlipidemia; I10 Essential (primary) hypertension; E11.29 Type 2 diabetes mellitus with other diabetic kidney complication; R80.9 Proteinuria, unspecified
CPT/HCPCS: 99499

== ENCOUNTER → 2022-12-28 09:44 | Outpatient (BNVA) | payer MEDICARE, SELFPAY | PROVIDERS: PCP Internal Medicine; Visit Provider Internal Medicine | DX: I48.20 Chronic atrial fibrillation, unspecified (principal); Z79.01 Long term (current) use of anticoagulants; Z51.81 Encounter for therapeutic drug level monitoring | CPT/HCPCS: 85610; 99211 ==

== ENCOUNTER 2023-01-01 10:24 | Outpatient (REF) | payer MEDICARE, SELFPAY ==
[2023-01-01 12:25] LABS: Anion Gap 13 (12-20); Blood Urea Nitrogen 65 mg/dL (9-16); Calcium 9.4 mg/dL (8.4-10.2); Carbon Dioxide 22 mmol/L (22-29); Chloride 107 mmol/L (96-108); Estimated Glomerular Filt Rate 28; Glucose Fasting 176 mg/dL (60-99); Sodium 137 mmol/L (135-145)
== END 2023-01-01 10:25 | disposition home or self-care (01) ==
LOC: HO.HMGCLDS 10:24
PROVIDERS: PCP Internal Medicine; Visit Provider Internal Medicine
DX: E87.5 Hyperkalemia (principal); N18.30 Chronic kidney disease, stage 3 unspecified
CPT/HCPCS: 36415; 80048

== ENCOUNTER → 2023-01-04 09:38 | Outpatient (BNVA) | payer MEDICARE, SELFPAY | PROVIDERS: PCP Internal Medicine; Visit Provider Internal Medicine | DX: I48.20 Chronic atrial fibrillation, unspecified (principal); Z51.81 Encounter for therapeutic drug level monitoring; Z79.01 Long term (current) use of anticoagulants | CPT/HCPCS: 85610; 99211 ==

== ENCOUNTER → 2023-01-12 10:15 | Outpatient (BNVA) | payer MEDICARE, SELFPAY | PROVIDERS: PCP Internal Medicine; Visit Provider Internal Medicine | DX: I48.20 Chronic atrial fibrillation, unspecified (principal); Z79.01 Long term (current) use of anticoagulants; Z51.81 Encounter for therapeutic drug level monitoring | CPT/HCPCS: 36415; 80048; 85610; 99211 ==

== ENCOUNTER 2023-01-12 13:17 | Outpatient (REF) | payer MEDICARE, SELFPAY ==
[2023-01-12 14:55] LABS: Anion Gap 13 (12-20); Blood Urea Nitrogen 76 mg/dL (9-16); Calcium 9.5 mg/dL (8.4-10.2); Carbon Dioxide 22 mmol/L (22-29); Chloride 109 mmol/L (96-108); Estimated Glomerular Filt Rate 27; Glucose Random 170 mg/dL (60-115); Potassium 5.5 mmol/L (3.3-5.1); Sodium 138 mmol/L (135-145)
== END 2023-01-12 13:18 | disposition home or self-care (01) ==
LOC: HO.HMGCLDS 13:17
PROVIDERS: PCP Internal Medicine; Visit Provider Internal Medicine Hypertension Specialist
DX: Z13.89 Encounter for screening for other disorder (principal)
CPT/HCPCS: 36415; 80048

== ENCOUNTER → 2023-01-27 10:06 | Outpatient (BNVA) | payer MEDICARE, SELFPAY | PROVIDERS: PCP Internal Medicine; Visit Provider Internal Medicine | DX: I48.20 Chronic atrial fibrillation, unspecified (principal); Z79.01 Long term (current) use of anticoagulants; Z51.81 Encounter for therapeutic drug level monitoring | CPT/HCPCS: 85610; 99211 ==

== ENCOUNTER → 2023-02-17 09:35 | Outpatient (BNVA) | payer MEDICARE, SELFPAY | PROVIDERS: PCP Internal Medicine; Visit Provider Internal Medicine | DX: I48.20 Chronic atrial fibrillation, unspecified (principal); Z79.01 Long term (current) use of anticoagulants; Z51.81 Encounter for therapeutic drug level monitoring | CPT/HCPCS: 85610; 99211 ==

== ENCOUNTER 2023-02-24 07:55 | Outpatient (REF) | payer MEDICARE, SELFPAY ==
[2023-02-24 11:24] LABS: Appearance Urine Clear; Color Urine Yellow; Glucose Urine UA Negative (Negative); Leukocyte Esterase Urine Small (1+) (Negative); Nitrite Urine Negative (Negative); PH 5.5 (5.0-9.0); Specific Gravity - Urine <= 1.005 (1.005-1.025); UMIC TRIGGER UACC YES; Urine Blood Negative (Negative); Urine Ketones Negative (Negative); Urine Protein Negative (Neg-Trace)
[2023-02-24 11:40] LABS: Bacteria Urine None Seen (None Seen); Hyaline Casts Urine 0-2 /LPF (0-2); RBC Urine 0-2 /HPF (0-2); Squamous Epithelial Cell Urine 0-2 /HPF (0-2); UACC Culture Trigger YES; WBC Urine 0-5 /HPF (0-5)
[2023-02-24 11:58] LABS: Anion Gap 14 (12-20); Blood Urea Nitrogen 24 mg/dL (9-16); Calcium 9.1 mg/dL (8.4-10.2); Carbon Dioxide 27 mmol/L (22-29); Chloride 105 mmol/L (96-108); Estimated Glomerular Filt Rate 43; Glucose Random 151 mg/dL (60-115); Potassium 4.3 mmol/L (3.3-5.1); Sodium 142 mmol/L (135-145)
[2023-02-24 12:06] LABS: Creatinine Urine 30.48 mg/dL; Total Protein Urine Random < 7 mg/dL (<12)
== END 2023-02-24 07:56 | disposition home or self-care (01) ==
LOC: HO.HMGCLDS 07:55
PROVIDERS: PCP Internal Medicine; Visit Provider Internal Medicine Hypertension Specialist
DX: N18.32 Chronic kidney disease, stage 3b (principal); R82.90 Unspecified abnormal findings in urine
CPT/HCPCS: 36415; 80048; 81001; 84156; 87086; 87147

== ENCOUNTER → 2023-03-15 09:39 | Outpatient (BNVA) | payer MEDICARE, SELFPAY | PROVIDERS: PCP Internal Medicine; Visit Provider Internal Medicine | DX: I48.0 Paroxysmal atrial fibrillation (principal); Z79.01 Long term (current) use of anticoagulants; Z51.81 Encounter for therapeutic drug level monitoring | CPT/HCPCS: 85610; 99211 ==

== ENCOUNTER 2023-03-18 07:15 | Outpatient (REF) | payer MEDICARE, SELFPAY ==
[2023-03-18 11:25] LABS: Estimated Average Glucose 151 mg/dL; Hemoglobin A1c % 6.9 %
[2023-03-18 12:19] LABS: Alanine Aminotransferase 19 U/L (0-31); Albumin Level 3.5 g/dL (3.5-5.0); Alkaline Phosphatase 93 U/L (39-117); Anion Gap 10 (12-20); Aspartate Amino Transferase 16 U/L (5-31); Bilirubin Total 0.7 mg/dL (0.0-1.0); Blood Urea Nitrogen 35 mg/dL (9-16); Calcium 8.9 mg/dL (8.4-10.2); Carbon Dioxide 27 mmol/L (22-29); Chloride 109 mmol/L (96-108); Cholesterol 150 mg/dL; Estimated Glomerular Filt Rate 45; Glucose Fasting 142 mg/dL (60-99); HDL Cholesterol 34 mg/dL; LDL Cholesterol Calculated 83 mg/dl; Sodium 142 mmol/L (135-145); Triglycerides 166 mg/dL; Vitamin D 25-OH Total 32.1 ng/mL (>30)
== END 2023-03-18 07:16 | disposition home or self-care (01) ==
LOC: HO.HMGCLDS 07:15
PROVIDERS: PCP Internal Medicine; Visit Provider Internal Medicine
DX: I12.9 Hypertensive chronic kidney disease with stage 1 through stage 4 chronic kidney disease, or unspecified chronic kidney disease (principal); E11.22 Type 2 diabetes mellitus with diabetic chronic kidney disease; N18.30 Chronic kidney disease, stage 3 unspecified; E78.2 Mixed hyperlipidemia; E87.5 Hyperkalemia; R80.9 Proteinuria, unspecified
CPT/HCPCS: 36415; 80053; 80061; 82306; 83036

== ENCOUNTER 2023-04-08 09:58 | Outpatient (AMB) | payer MEDICARE, SELFPAY ==
--- NOTE | 2023-04-08 10:03 | MHC.OFFVISCO ---
Intake Intake Visit Reasons: Anticoagulation Allergies No Known Allergies Allergy (Verified 04/08/23 09:59) Medication List - Last Reconciled 04/08/23 by Nelia Puente RN aspirin (Adult Aspirin Regimen) 81 mg PO DAILY atorvastatin 10 mg PO DAILY blood sugar diagnostic (FreeStyle Lite Strips) USE TO TEST DIRECTED ONCE DAILY (E11.9) brimonidine 0.2% 1 drp ophthalmic (eye) BID digoxin 250 mcg PO DAILY diltiazem HCl 240 mg PO DAILY hydralazine 50 mg PO TID hydrochlorothiazide 25 mg PO DAILY lancets As directed multivitamin 1 tab PO DAILY omega-3 fatty acids 1,200 mg PO BID pioglitazone 30 mg PO DAILY repaglinide 2 mg PO TID warfarin 5 mg See Protocol PO DAILY Nursing Note pt visit delayed due to meter interfacing pt to have cardiac stress test in near future - Dr. Alamo - [facility] INR: 2.2 in therapeutic range Medications and supplements reviewed No changes in health, diet, medications, or supplements, Denies any signs and symptoms of bleeding or bruising or clotting. Bleeding, bruising, clotting discussed Nutritional guidance given eat a mix of fruits and vegetables , call with date of stress test Dose: 2.5g x 1 day/ 5mg x 6 days F/U INR: 4weeks Patient verbalizes understanding of instructions given Anti-Coag Initial Assessment Social Hx Patient Tobacco Use Status: Never used Tobacco alcohol intake: never Coding Level of Care Code Est Patient Level 1 Diagnoses Current use of anticoagulant therapy Z79.01 Results AMB INR Fingerstick AMB INR Fingerstick 2.2 Last Edit by Nelia Puente RN on 04/08/23 10:15 MANUAL ENTRY DUE TO INETERFACE FAILURE ONGOIN Assessment & Plan Assessment & Plan (1) Current use of anticoagulant therapy: Code(s): Z79.01 - intermediate manager (current) use of anticoagulants Category: Medical
[2023-04-08 10:14] LABS: Prothrombin Time Whole Bld POC 26.7 sec (11.1-13.5); ~PT, ~INR - Anti Coag Clinic 2.2 (0.9-1.1)
== END 2023-04-08 10:20 | disposition home or self-care (01) ==
LOC: HO.ACS 09:58
PROVIDERS: PCP Internal Medicine; Visit Provider Internal Medicine
DX: Z79.01 Long term (current) use of anticoagulants (principal)

== ENCOUNTER → 2023-04-08 09:58 | Outpatient (BNVA) | payer MEDICARE, SELFPAY | PROVIDERS: PCP Internal Medicine; Visit Provider Internal Medicine | DX: I48.20 Chronic atrial fibrillation, unspecified (principal); Z79.01 Long term (current) use of anticoagulants; Z51.81 Encounter for therapeutic drug level monitoring | CPT/HCPCS: 85610; 99211 ==

== ENCOUNTER 2023-05-04 09:36 | Outpatient (AMB) | payer MEDICARE, SELFPAY ==
[2023-05-04 09:53] LABS: Prothrombin Time Whole Bld POC 25.6 sec (11.1-13.5); ~PT, ~INR - Anti Coag Clinic 2.1 (0.9-1.1)
--- NOTE | 2023-05-04 09:54 | MHC.OFFVISCO ---
Intake Intake Visit Reasons: Anticoagulation Allergies No Known Allergies Allergy (Verified 05/04/23 09:47) Medication List - Last Reconciled 05/04/23 by Jody Mcclain, RN aspirin (Adult Aspirin Regimen) 81 mg PO DAILY atorvastatin 10 mg PO DAILY blood sugar diagnostic (FreeStyle Lite Strips) USE TO TEST DIRECTED ONCE DAILY (E11.9) brimonidine 0.2% 1 drp ophthalmic (eye) BID digoxin 250 mcg PO DAILY diltiazem HCl 300 mg PO DAILY hydralazine 50 mg PO TID hydrochlorothiazide 25 mg PO DAILY lancets As directed multivitamin 1 tab PO DAILY omega-3 fatty acids 1,200 mg PO BID pioglitazone 30 mg PO DAILY repaglinide 2 mg PO TID warfarin 5 mg See Protocol PO DAILY Nursing Note Amb to ACS feeling ok sts appetite hasn't been great due to stressers, stress test a couple weeks ago, had to get my car inspected and renew my license , sts she has also noticed increase SOB when mowing lawn (push mower) sts she would take breaks Medications and supplements reviewed, diltiazem increased No other changes in health, diet, medications, or supplements Denies any unusual signs and symptoms of bruising, bleeding Denies any new Chest pain, SOB, or clotting INR: 2.1 just in therapeutic range Nutritional guidance given: balance greens and reds in diet Dose: continue usual dosing; 2.5mg x 1 day and 5mg x 6 days F/U INR: 4 weeks Patient verbalizes understanding of instructions given with accurate read back/ teach back of dosing Anti-Coag Initial Assessment Social Hx Patient Tobacco Use Status: Never used Tobacco alcohol intake: never Coding Level of Care Code Est Patient Level 1 Diagnoses Current use of anticoagulant therapy Z79.01 Time Spent (min) 15 Assessment & Plan Assessment & Plan (1) Current use of anticoagulant therapy: Code(s): Z79.01 - terminal operations supervisor (current) use of anticoagulants Category: Medical
== END 2023-05-04 10:03 | disposition home or self-care (01) ==
LOC: HO.ACS 09:36
PROVIDERS: PCP Internal Medicine; Visit Provider Internal Medicine
DX: Z79.01 Long term (current) use of anticoagulants (principal)

== ENCOUNTER → 2023-05-04 09:36 | Outpatient (BNVA) | payer MEDICARE, SELFPAY | PROVIDERS: PCP Internal Medicine; Visit Provider Internal Medicine | DX: I48.20 Chronic atrial fibrillation, unspecified (principal); Z79.01 Long term (current) use of anticoagulants; Z51.81 Encounter for therapeutic drug level monitoring | CPT/HCPCS: 85610; 99211 ==

== ENCOUNTER 2023-06-01 09:38 | Outpatient (AMB) | payer MEDICARE, SELFPAY ==
--- NOTE | 2023-06-01 09:54 | MHC.OFFVISCO ---
Intake Intake Visit Reasons: Anticoagulation Allergies No Known Allergies Allergy (Verified 06/01/23 09:51) Medication List - Last Reconciled 06/01/23 by Nicole Otto RN aspirin (Adult Aspirin Regimen) 81 mg PO DAILY atorvastatin 10 mg PO DAILY blood sugar diagnostic (FreeStyle Lite Strips) USE TO TEST DIRECTED ONCE DAILY (E11.9) brimonidine 0.2% 1 drp ophthalmic (eye) BID digoxin 250 mcg PO DAILY diltiazem HCl 300 mg PO DAILY hydralazine 50 mg PO TID hydrochlorothiazide 25 mg PO DAILY lancets As directed multivitamin 1 tab PO DAILY omega-3 fatty acids 1,200 mg PO BID pioglitazone 30 mg PO DAILY repaglinide 2 mg PO TID warfarin 5 mg See Protocol PO DAILY Nursing Note INR: 2.3- in therapeutic range Medications and supplements reviewed- pt had flu shot 05/10/23 No changes in health, diet, medications, or supplements, Denies any signs and symptoms of bleeding or bruising or clotting. Bleeding, bruising, clotting discussed Nutritional guidance given Dose: 5mg x 6, 2.5mg x 1 F/U INR: 4 weeks Patient verbalizes understanding of instructions given Anti-Coag Initial Assessment Social Hx Patient Tobacco Use Status: Never used Tobacco alcohol intake: never Coding Level of Care Code Est Patient Level 1 Diagnoses Current use of anticoagulant therapy Z79.01 Results AMB INR Fingerstick AMB INR Fingerstick 2.3 Last Edit by Nicole Otto RN on 06/01/23 09:56 Assessment & Plan Assessment & Plan (1) Current use of anticoagulant therapy: Code(s): Z79.01 - emt intermediate (current) use of anticoagulants Category: Medical
[2023-06-01 09:56] LABS: Prothrombin Time Whole Bld POC 27.7 sec (11.1-13.5); ~PT, ~INR - Anti Coag Clinic 2.3 (0.9-1.1)
== END 2023-06-01 10:39 | disposition home or self-care (01) ==
LOC: HO.ACS 09:38
PROVIDERS: PCP Internal Medicine; Visit Provider Internal Medicine
DX: Z79.01 Long term (current) use of anticoagulants (principal)

== ENCOUNTER → 2023-06-01 09:38 | Outpatient (BNVA) | payer MEDICARE, SELFPAY | PROVIDERS: PCP Internal Medicine; Visit Provider Internal Medicine | DX: I48.20 Chronic atrial fibrillation, unspecified (principal); Z79.01 Long term (current) use of anticoagulants; Z51.81 Encounter for therapeutic drug level monitoring | CPT/HCPCS: 85610; 99211 ==

== ENCOUNTER 2023-06-09 15:01 | Outpatient (REF) | payer MEDICARE, SELFPAY ==
[2023-06-09 17:09] LABS: Anion Gap 13 (12-20); Blood Urea Nitrogen 39 mg/dL (9-16); Calcium 10.6 mg/dL (8.4-10.2); Carbon Dioxide 27 mmol/L (22-29); Chloride 105 mmol/L (96-108); Estimated Glomerular Filt Rate 36; Glucose Random 137 mg/dL (60-115); Potassium 4.7 mmol/L (3.3-5.1); Sodium 140 mmol/L (135-145)
== END 2023-06-09 15:02 | disposition home or self-care (01) ==
LOC: HO.HMGCLDS 15:01
PROVIDERS: PCP Internal Medicine; Visit Provider Internal Medicine Hypertension Specialist
DX: N18.31 Chronic kidney disease, stage 3a (principal)
CPT/HCPCS: 36415; 80048

== ENCOUNTER 2023-06-29 09:52 | Outpatient (AMB) | payer MEDICARE, SELFPAY ==
--- NOTE | 2023-06-29 10:19 | MHC.OFFVISCO ---
Intake Intake Visit Reasons: Anticoagulation Allergies No Known Allergies Allergy (Verified 06/29/23 10:03) Medication List - Last Reconciled 06/29/23 by Jody Mcclain RN aspirin (Adult Aspirin Regimen) 81 mg PO DAILY atorvastatin 10 mg PO DAILY blood sugar diagnostic (FreeStyle Lite Strips) USE TO TEST DIRECTED ONCE DAILY (E11.9) brimonidine 0.2% 1 drp ophthalmic (eye) BID digoxin 250 mcg PO DAILY diltiazem HCl 300 mg PO DAILY hydralazine 50 mg PO TID hydrochlorothiazide 25 mg PO DAILY lancets As directed multivitamin 1 tab PO DAILY omega-3 fatty acids 1,200 mg PO BID pioglitazone 30 mg PO DAILY repaglinide 2 mg PO TID warfarin 5 mg See Protocol PO DAILY Nursing Note Amb to ACS feeling well, sts she got her flu shot 05/10, first shingles 06/10 and new covid 06/15 Medications and supplements reviewed, no changes No other changes in health, diet, medications, or supplements Denies any unusual signs and symptoms of bruising, bleeding Denies any new Chest pain, SOB, or clotting INR: 3.7 above therapeutic range Nutritional guidance given: greens today and tomorrow then balance greens and reds in diet Dose: decrease dose today to 2.5mg then continue usual dosing;2.5mg x 1 day and 5mg x 6 days F/U INR: 2 weeks Patient verbalizes understanding of instructions given with accurate read back/ teach back of dosing Anti-Coag Initial Assessment Social Hx Patient Tobacco Use Status: Never used Tobacco alcohol intake: never Coding Level of Care Code Est Patient Level 1 Diagnoses Current use of anticoagulant therapy Z79.01 Time Spent (min) 15 Results AMB INR Fingerstick AMB INR Fingerstick 3.7 Last Edit by Jody Mcclain RN on 06/29/23 10:15 interface failure Assessment & Plan Assessment & Plan (1) Current use of anticoagulant therapy: Code(s): Z79.01 - assisted (current) use of anticoagulants Category: Medical
[2023-06-29 11:39] LABS: Prothrombin Time Whole Bld POC 44.1 sec (11.1-13.5); ~PT, ~INR - Anti Coag Clinic 3.7 (0.9-1.1)
== END 2023-06-29 10:52 | disposition home or self-care (01) ==
LOC: HO.ACS 09:52
PROVIDERS: PCP Internal Medicine; Visit Provider Internal Medicine
DX: Z79.01 Long term (current) use of anticoagulants (principal)

== ENCOUNTER → 2023-06-29 09:52 | Outpatient (BNVA) | payer MEDICARE, SELFPAY | PROVIDERS: PCP Internal Medicine; Visit Provider Internal Medicine | DX: I48.20 Chronic atrial fibrillation, unspecified (principal); Z51.81 Encounter for therapeutic drug level monitoring; Z79.01 Long term (current) use of anticoagulants | CPT/HCPCS: 85610; 99211 ==

== ENCOUNTER 2023-07-15 09:49 | Outpatient (AMB) | payer MEDICARE, SELFPAY ==
--- NOTE | 2023-07-15 09:54 | MHC.OFFVISCO ---
Intake Intake Visit Reasons: Anticoagulation Allergies No Known Allergies Allergy (Verified 06/29/23 10:03) Nursing Note INR: 2.4- in therapeutic range 2-3 Medications and supplements reviewed No changes in health, diet, medications, or supplements, Denies any signs and symptoms of bleeding or bruising or clotting. Bleeding, bruising, clotting discussed Nutritional guidance given Dose: 5mg x 6, 2.5mg x 1 F/U INR: 3 weeks Patient verbalizes understanding of instructions given Anti-Coag Initial Assessment Social Hx Patient Tobacco Use Status: Never used Tobacco alcohol intake: never Questionnaires HAS-BLED Does the patient had uncontrolled Hypertension?: No Does the patient have renal disease?: Yes Does the patient have liver disease?: No Does the patient have a history of stroke?: No Has the patient had major bleeding or predisposition to bleeding?: No Does the patient have labile INRs?: No Is the patient over 65 years of age?: No Is the patient on medications that gives them a predisposition to bleeding?: Yes Does the patient use alcohol?: No HAS-BLED Score: 2 CHADSVASC Age: 66-74 Gender: Female Does the patient have a history of CHF?: No Does the patient have a history of Hypertension?: Yes Does the patient have a history of Stroke/TIA/Thromboembolism?: No Does the patient have a history of Vascular Disease (prior AR, PAD or aortic plaque)?: No Does the patient have a history of Diabetes?: Yes CHADS VACS Score: 4 Bibiana Prediction Score Rsk VTE Active Cancer: No Previous VTE, excluding superficial vein thrombosis: No Reduced mobility: No Already known Thrombophilic Condition: No With-in last month Trauma and/or Surgery: No Elderly 70 year or older: Yes Heart and/or Respiratory Failure: No Acute Myocardial infarction and/or Ischemic Stroke: No Acute Infection and/or Rheumatologic Disorder: No Obesity (BMI 30 or greater): No Ongoing Hormonal Treatment: No Score: 1 Bibiana Score less than 4; Low Risk of VTE Bibiana Score 4 or greater; High Risk of VTE Coding Level of Care Code Est Patient Level 1 Diagnoses Current use of anticoagulant therapy Z79.01 Results AMB INR Fingerstick AMB INR Fingerstick 2.4 Last Edit by Nicole Otto RN on 07/15/23 09:55 Assessment & Plan Assessment & Plan (1) Current use of anticoagulant therapy: Code(s): Z79.01 - intermodal customer service (current) use of anticoagulants Category: Medical
[2023-07-15 09:55] LABS: Prothrombin Time Whole Bld POC 28.7 sec (11.1-13.5); ~PT, ~INR - Anti Coag Clinic 2.4 (0.9-1.1)
== END 2023-07-15 10:02 | disposition home or self-care (01) ==
LOC: HO.ACS 09:49
PROVIDERS: PCP Internal Medicine; Visit Provider Internal Medicine
DX: Z79.01 Long term (current) use of anticoagulants (principal)

== ENCOUNTER → 2023-07-15 09:49 | Outpatient (BNVA) | payer MEDICARE, SELFPAY | PROVIDERS: PCP Internal Medicine; Visit Provider Internal Medicine | DX: I48.20 Chronic atrial fibrillation, unspecified (principal); Z79.01 Long term (current) use of anticoagulants; Z51.81 Encounter for therapeutic drug level monitoring | CPT/HCPCS: 85610; 99211 ==

== ENCOUNTER 2023-07-23 08:28 | Outpatient (REF) | payer MEDICARE, SELFPAY ==
[2023-07-23 11:52] LABS: Estimated Average Glucose 194 mg/dL; Hemoglobin A1c % 8.4 % (<6.0)
[2023-07-23 12:22] LABS: Alanine Aminotransferase 18 U/L (0-31); Aspartate Amino Transferase 18 U/L (5-31); Cholesterol 149 mg/dL (<200); HDL Cholesterol 34 mg/dL (>40); LDL Cholesterol Calculated 79 mg/dL (<100); Triglycerides 184 mg/dL (<150)
[2023-07-23 12:25] LABS: Anion Gap 16 (12-20); Blood Urea Nitrogen 22 mg/dL (9-16); Calcium 9.6 mg/dL (8.4-10.2); Carbon Dioxide 24 mmol/L (22-29); Chloride 105 mmol/L (96-108); Estimated Glomerular Filt Rate 46; Potassium 4.2 mmol/L (3.3-5.1); Sodium 141 mmol/L (135-145); Vitamin D 25-OH Total 36.5 ng/mL (>30)
[2023-07-26 11:48] LABS: Calcium (PTHI) 8.9 mg/dL (8.6-10.4); PTHI 46 pg/mL (16-77)
[2023-07-28 10:09] LABS: PES - Abn Protein Band 1 0.2 g/dL (NONE DETECTED); Prot Elec - Albumin 3.6 g/dL (3.8-4.8); Prot Elec - Alpha1 0.3 g/dL (0.2-0.3); Prot Elec - Alpha2 0.9 g/dL (0.5-0.9); Prot Elec - Beta 1 0.5 g/dL (0.4-0.6); Prot Elec - Beta 2 0.5 g/dL (0.2-0.5); Prot Elec - Gamma 1.2 g/dL (0.8-1.7)
== END 2023-07-23 08:29 | disposition home or self-care (01) ==
LOC: HO.HMGCLDS 08:28
PROVIDERS: Absent Provider Internal Medicine Hypertension Specialist; PCP Internal Medicine; Visit Provider Internal Medicine
DX: E78.2 Mixed hyperlipidemia (principal); R80.9 Proteinuria, unspecified; E11.22 Type 2 diabetes mellitus with diabetic chronic kidney disease; N18.32 Chronic kidney disease, stage 3b
CPT/HCPCS: 36415; 80051; 80061; 82306; 82310; 82565; 83036; 83970; 84165; 84450; 84460; 84520

== ENCOUNTER 2023-07-26 10:23 | Outpatient (AMB) | payer MEDICARE, SELFPAY ==
[2023-07-26 10:30] VITALS: BP 170/78; PULSE 81; O2SAT 97; BMI 29.8
--- NOTE | 2023-07-26 10:30 | A.OFFPC_ITS ---
<Statement entered by Genie Lynne MD - 01/31/25 15:24> This note has been administratively?closed. Vital Signs 07/26/23 10:30 Height 5 ft 3 in Weight 168 lb 2 oz BMI 29.8 BP 170/78 H Blood Pressure Location Lt brachial Position Sitting Pulse 81 Pulse Source Pulse Oximeter Pulse Oximetry (%) 97 Oxygen Delivery Method Room Air Intake Visit Reasons: 4m follow up Intake Note: pt is here to follow for lab results Allergies No Known Allergies Allergy (Verified 04/27/24 18:32) Medication List - Last Reconciled 04/27/24 by Genie Lynne MD atorvastatin 10 mg PO DAILY blood sugar diagnostic (FreeStyle Lite Strips) USE TO TEST DIRECTED ONCE DAILY (E11.9) brimonidine 0.2% 1 drp ophthalmic (eye) BID digoxin 250 mcg PO DAILY diltiazem HCl CD 300 mg PO DAILY hydralazine 50 mg PO TID hydrochlorothiazide 25 mg PO DAILY lancets As directed multivitamin 1 tab PO DAILY omega-3 fatty acids 1,200 mg PO BID pioglitazone 45 mg PO DAILY repaglinide 2 mg PO TID warfarin 5 mg See Protocol PO DAILY Tobacco use date assessed: 07/26/23 Fall risk assessment: No Falls in past year Last assessed Fall Risk: 07/26/23 Dental Screening Dental Screen Date: 07/26/23 Did you have a dental visit in the last 12 months?: No Did you have a dental problem in the last 6 months where you did not have access to dental care?: No Was dental information given to patient?: No HPI 4m follow up HPI Details 73-year-old lady here today for follow-u p on her diabetes mellitus and hyperlipidemia. She is currently taking pioglitazone 30 mg once a day and repaglinide 2 mg 1 tablet 3 times a day with meals for diabetes control, and takes atorvastatin 10 mg once a day for her high cholesterol. States that she has been taking her medications as directed, but not following recommended diet, and has not been getting any exercise at home. 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, without long-term current use of insulin Colonoscopy refused Hyperkalemia Paroxysmal atrial fibrillation Mixed dyslipidemia Essential hypertension Diabetes mellitus with microalbuminuria, without long-term current use of insulin Surgical History History of placement of ear tubes Hx of cholecystectomy Family History Father Unknown family medical history Mother Unknown family medical history Son Mental health disorder Social History Housing: House Alcohol intake: never Patient Tobacco Use Status: Never used Tobacco e-Cigarette/Vaping Use: Never Used service: No Current occupational status: retired Cognitive needs: No Hearing needs: No Vision needs: No Questionnaire Thrive Questionnaire Date Thrive assessed: 03/24/23 DEE-7 AMB Questionnaire EDE-7 Date EDE - 7 assessed: 03/24/23 Source: Developed by Drs. Jeremy Fletcher, Светлана Bess, Garcia Gasca and colleagues, with an educational martir from [employer]. Physical exam (Primary Care) Vital Signs: Last Vital Signs Pulse 81 07/26/23 10:30 BP 170/78 H 07/26/23 10:30 Pulse Ox 97 07/26/23 10:30 Oxygen Delivery Method Room Air 07/26/23 10:30 BMI result Body Mass Index 29.8 Tobacco/Smoking Status: Tobacco use Status Tobacco use date assessed 07/26/23 07/26/23 10:34 Patient Tobacco Use Status Never used Tobacco 07/26/23 10:34 e-Cigarette/Vaping Use Never Used 07/26/23 10:34 Thrive Assessment: Date of Thrive Assessment Date Thrive assessed 03/24/23 07/26/23 10:34 Assessment and Plan Assessment & Plan (1) Diabetes mellitus with microalbuminuria, without long-term current use of insulin: Code(s): E11.29 - Type 2 diabetes mellitus with other diabetic kidney complication; R80.9 - Proteinuria, unspecified (2) Essential hypertension: Code(s): I10 - Essential (primary) hypertension (3) Mixed dyslipidemia: Code(s): E78.2 - Mixed hyperlipidemia Orders: Orders Hemoglobin A1c 10/25/23 E11.29 - Type 2 diabetes mellitus with other diabetic kidney complication, R80.9 - Proteinuria, unspecified, I10 - Essential (primary) hypertension, E78.2 - Mixed hyperlipidemia Alanine Aminotransferase 10/25/23 - Type 2 diabetes mellitus with other diabetic kidney complication, R80.9 - Proteinuria, unspecified, I10 - Essential (primary) hypertension, E78.2 - Mixed hyperlipidemia Basic Metabolic Panel Fasting 10/25/23 - Type 2 diabetes mellitus with other diabetic kidney complication, R80.9 - Proteinuria, unspecified, I10 - Essential (primary) hypertension, E78.2 - Mixed hyperlipidemia Lipid Panel 10/25/23 - Type 2 diabetes mellitus with other diabetic kidney complication, R80.9 - Proteinuria, unspecified, I10 - Essential (primary) hypertension, E78.2 - Mixed hyperlipidemia Microalbumin, Random (w Creat) 10/25/23 - Type 2 diabetes mellitus with other diabetic kidney complication, R80.9 - Proteinuria, unspecified, I10 - Essential (primary) hypertension, E78.2 - Mixed hyperlipidemia Aspartate Amino Transferase 10/25/23 - Type 2 diabetes mellitus with other diabetic kidney complication, R80.9 - Proteinuria, unspecified, I10 - Essential (primary) hypertension, E78.2 - Mixed hyperlipidemia Vitamin D 25-OH Total 10/25/23 - Type 2 diabetes mellitus with other diabetic kidney complication, R80.9 - Proteinuria, unspecified, I10 - Essential (primary) hypertension, E78.2 - Mixed hyperlipidemia Coding Level of Care Code Est Pt Level 4 (09790) Diagnoses Diabetes mellitus with microalbuminuria, without long-term current use of insulin ; R80.9 Essential hypertension I10 Mixed dyslipidemia E78.2
== END 2023-07-26 11:20 | disposition home or self-care (01) ==
PROVIDERS: PCP Internal Medicine; Visit Provider Internal Medicine
DX: E11.29 Type 2 diabetes mellitus with other diabetic kidney complication (principal); R80.9 Proteinuria, unspecified; I10 Essential (primary) hypertension; E78.2 Mixed hyperlipidemia
CPT/HCPCS: 99499

== ENCOUNTER 2023-08-04 10:06 | Outpatient (AMB) | payer MEDICARE, SELFPAY ==
[2023-08-04 10:13] LABS: Prothrombin Time Whole Bld POC 21.9 sec (11.1-13.5); ~PT, ~INR - Anti Coag Clinic 1.8 (0.9-1.1)
--- NOTE | 2023-08-04 10:23 | MHC.OFFVISCO ---
Intake Intake Visit Reasons: Anticoagulation Allergies No Known Allergies Allergy (Verified 08/04/23 10:07) Medication List - Last Reconciled 08/04/23 by Luisa Robbins RN aspirin (Adult Aspirin Regimen) 81 mg PO DAILY atorvastatin 10 mg PO DAILY blood sugar diagnostic (FreeStyle Lite Strips) USE TO TEST DIRECTED ONCE DAILY (E11.9) brimonidine 0.2% 1 drp ophthalmic (eye) BID digoxin 250 mcg PO DAILY diltiazem HCl 300 mg PO DAILY hydralazine 50 mg PO TID hydrochlorothiazide 25 mg PO DAILY lancets As directed multivitamin 1 tab PO DAILY omega-3 fatty acids 1,200 mg PO BID pioglitazone 30 mg PO DAILY repaglinide 2 mg PO TID warfarin 5 mg See Protocol PO DAILY Nursing Note NO CP,SOB,DIET/MED CHANGES,FALLS OR SX OF BLEEDING. PT.DENIES ANY MISSED DOSES. BOOST TO 7.5MGM TODAY THEN RESUME USUAL DOSE AND FOLLOW-UP IN 3 WEEEKS. GOOD UNDERSTANDING OF DOSING INSTR. NO GREENS 1-2 DAYS Anti-Coag Initial Assessment Social Hx Patient Tobacco Use Status: Never used Tobacco alcohol intake: never Coding Level of Care Code Est Patient Level 1 Diagnoses Current use of anticoagulant therapy Z79.01 Assessment & Plan Assessment & Plan (1) Current use of anticoagulant therapy: Code(s): Z79.01 - group home (current) use of anticoagulants Category: Medical
== END 2023-08-04 10:26 | disposition home or self-care (01) ==
LOC: HO.ACS 10:06
PROVIDERS: PCP Internal Medicine; Visit Provider Internal Medicine
DX: Z79.01 Long term (current) use of anticoagulants (principal)

== ENCOUNTER → 2023-08-04 10:06 | Outpatient (BNVA) | payer MEDICARE, SELFPAY | PROVIDERS: PCP Internal Medicine; Visit Provider Internal Medicine | DX: I48.20 Chronic atrial fibrillation, unspecified (principal); Z79.01 Long term (current) use of anticoagulants; Z51.81 Encounter for therapeutic drug level monitoring | CPT/HCPCS: 85610; 99211 ==

== ENCOUNTER 2023-08-26 09:45 | Outpatient (AMB) | payer MEDICARE, SELFPAY ==
--- NOTE | 2023-08-26 10:13 | MHC.OFFVISCO ---
Intake Intake Visit Reasons: Anticoagulation Allergies No Known Allergies Allergy (Verified 08/26/23 09:58) Medication List - Last Reconciled 08/26/23 by Luisa Robbins RN aspirin (Adult Aspirin Regimen) 81 mg PO DAILY atorvastatin 10 mg PO DAILY blood sugar diagnostic (FreeStyle Lite Strips) USE TO TEST DIRECTED ONCE DAILY (E11.9) brimonidine 0.2% 1 drp ophthalmic (eye) BID digoxin 250 mcg PO DAILY diltiazem HCl 300 mg PO DAILY hydralazine 50 mg PO TID hydrochlorothiazide 25 mg PO DAILY lancets As directed multivitamin 1 tab PO DAILY omega-3 fatty acids 1,200 mg PO BID pioglitazone 30 mg PO DAILY repaglinide 2 mg PO TID warfarin 5 mg See Protocol PO DAILY Nursing Note NO CP,SOB,DIET/MED CHANGES,FALLS OR SX OF BLEEDING. CONTINUE PRESENT DOSE AND FOLLOW-UP IN WEEKS. GOOD UNDERSTANDING OF DOSING INSTR. Anti-Coag Initial Assessment Social Hx Patient Tobacco Use Status: Never used Tobacco alcohol intake: never Coding Level of Care Code Est Patient Level 1 Diagnoses Current use of anticoagulant therapy Z79.01 Assessment & Plan Assessment & Plan (1) Current use of anticoagulant therapy: Code(s): Z79.01 - senior care (current) use of anticoagulants Category: Medical
== END 2023-08-26 10:15 | disposition home or self-care (01) ==
LOC: HO.ACS 09:45
PROVIDERS: PCP Internal Medicine; Visit Provider Internal Medicine
DX: Z79.01 Long term (current) use of anticoagulants (principal)

== ENCOUNTER → 2023-08-26 09:45 | Outpatient (BNVA) | payer MEDICARE, SELFPAY | PROVIDERS: PCP Internal Medicine; Visit Provider Internal Medicine | DX: I48.20 Chronic atrial fibrillation, unspecified (principal); Z79.01 Long term (current) use of anticoagulants; Z51.81 Encounter for therapeutic drug level monitoring | CPT/HCPCS: 85610; 99211 ==

== ENCOUNTER 2023-09-28 09:52 | Outpatient (AMB) | payer MEDICARE, SELFPAY ==
--- NOTE | 2023-09-28 10:11 | MHC.OFFVISCO ---
Intake Intake Visit Reasons: Anticoagulation Allergies No Known Allergies Allergy (Verified 09/28/23 10:07) Medication List - Last Reconciled 09/28/23 by Nicole Otto RN aspirin (Adult Aspirin Regimen) 81 mg PO DAILY atorvastatin 10 mg PO DAILY blood sugar diagnostic (FreeStyle Lite Strips) USE TO TEST DIRECTED ONCE DAILY (E11.9) brimonidine 0.2% 1 drp ophthalmic (eye) BID digoxin 250 mcg PO DAILY diltiazem HCl 300 mg PO DAILY hydralazine 50 mg PO TID hydrochlorothiazide 25 mg PO DAILY lancets As directed multivitamin 1 tab PO DAILY omega-3 fatty acids 1,200 mg PO BID pioglitazone 30 mg PO DAILY repaglinide 2 mg PO TID warfarin 5 mg See Protocol PO DAILY Nursing Note INR 3.7-? out of therapeutic range of 2-3 Medications and supplements reviewed Patient status: no c.o, son was visiting over the holidays Medications or supplements: no changes Diet: diet not as usual, had gingerale and grapes Denies any signs and symptoms of bleeding or clotting or unusual bruising Bleeding, bruising, clotting discussed Nutritional guidance given: eat greens to lower, no reds for 2 days Dose: reduce dose to 2.5mg today then cont reg 5mg x 6, 2.5mg x 1 F/U INR Date : 2 weeks? Patient verbalizing understanding of instructions given. Anti-Coag Initial Assessment Social Hx Patient Tobacco Use Status: Never used Tobacco alcohol intake: never Coding Level of Care Code Est Patient Level 1 Diagnoses Current use of anticoagulant therapy Z79.01 Assessment & Plan Assessment & Plan (1) Current use of anticoagulant therapy: Code(s): Z79.01 - residential (current) use of anticoagulants Category: Medical
[2023-09-28 10:12] LABS: Prothrombin Time Whole Bld POC 44.2 sec (11.1-13.5); ~PT, ~INR - Anti Coag Clinic 3.7 (0.9-1.1)
== END 2023-09-28 10:18 | disposition home or self-care (01) ==
LOC: HO.ACS 09:52
PROVIDERS: PCP Internal Medicine; Visit Provider Internal Medicine
DX: Z79.01 Long term (current) use of anticoagulants (principal)

== ENCOUNTER → 2023-09-28 09:52 | Outpatient (BNVA) | payer MEDICARE, SELFPAY | PROVIDERS: PCP Internal Medicine; Visit Provider Internal Medicine | DX: I48.20 Chronic atrial fibrillation, unspecified (principal); Z51.81 Encounter for therapeutic drug level monitoring; Z79.01 Long term (current) use of anticoagulants | CPT/HCPCS: 85610; 99211 ==

== ENCOUNTER 2023-10-14 09:58 | Outpatient (AMB) | payer MEDICARE, SELFPAY ==
[2023-10-14 10:24] LABS: Prothrombin Time Whole Bld POC 23.9 sec (11.1-13.5)
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
== END 2023-10-14 11:01 | disposition home or self-care (01) ==
LOC: HO.ACS 09:58
PROVIDERS: PCP Internal Medicine; Visit Provider Internal Medicine
DX: Z79.01 Long term (current) use of anticoagulants (principal)

== ENCOUNTER → 2023-10-14 09:58 | Outpatient (BNVA) | payer MEDICARE, SELFPAY | PROVIDERS: PCP Internal Medicine; Visit Provider Internal Medicine | DX: I48.20 Chronic atrial fibrillation, unspecified (principal); Z79.01 Long term (current) use of anticoagulants; Z51.81 Encounter for therapeutic drug level monitoring | CPT/HCPCS: 85610; 99211 ==

== ENCOUNTER 2023-10-27 08:30 | Outpatient (REF) | payer MEDICARE, SELFPAY ==
[2023-10-27 11:59] LABS: Estimated Average Glucose 192 mg/dL; Hemoglobin A1c % 8.3 % (<6.0)
[2023-10-27 12:03] LABS: Alanine Aminotransferase 16 U/L (0-31); Anion Gap 15 (12-20); Aspartate Amino Transferase 15 U/L (5-31); Blood Urea Nitrogen 31 mg/dL (9-16); Calcium 9.5 mg/dL (8.4-10.2); Carbon Dioxide 27 mmol/L (22-29); Chloride 103 mmol/L (96-108); Cholesterol 175 mg/dL (<200); Estimated Glomerular Filt Rate 40; Glucose Fasting 192 mg/dL (60-99); HDL Cholesterol 32 mg/dL (>40); LDL Cholesterol Calculated 96 mg/dL (<100); Potassium 4.5 mmol/L (3.3-5.1); Sodium 140 mmol/L (135-145); Triglycerides 237 mg/dL (<150)
[2023-10-27 12:27] LABS: Vitamin D 25-OH Total 39.7 ng/mL (>30)
[2023-10-27 12:38] LABS: Creatinine Urine 41.65 mg/dL; Microalbum/Creatinine Ratio Ur 388.9 ug/mg cr (<30)
== END 2023-10-27 08:31 | disposition home or self-care (01) ==
LOC: HO.HMGCLDS 08:30
PROVIDERS: PCP Internal Medicine; Visit Provider Internal Medicine
DX: E11.29 Type 2 diabetes mellitus with other diabetic kidney complication (principal); R80.9 Proteinuria, unspecified; I10 Essential (primary) hypertension; E78.2 Mixed hyperlipidemia
CPT/HCPCS: 36415; 80048; 80061; 82043; 82306; 82570; 83036; 84450; 84460

== ENCOUNTER 2023-11-16 10:36 | Outpatient (AMB) | payer MEDICARE, SELFPAY ==
--- NOTE | 2023-11-16 10:45 | MHC.OFFVISCO ---
Intake Intake Visit Reasons: Anticoagulation Allergies No Known Allergies Allergy (Verified 11/16/23 10:40) Medication List - Last Reconciled 11/16/23 by Nicole Otto RN aspirin (Adult Aspirin Regimen) 81 mg PO DAILY atorvastatin 10 mg PO DAILY blood sugar diagnostic (FreeStyle Lite Strips) USE TO TEST DIRECTED ONCE DAILY (E11.9) brimonidine 0.2% 1 drp ophthalmic (eye) BID digoxin 250 mcg PO DAILY diltiazem HCl 300 mg PO DAILY hydralazine 50 mg PO TID hydrochlorothiazide 25 mg PO DAILY lancets As directed multivitamin 1 tab PO DAILY omega-3 fatty acids 1,200 mg PO BID pioglitazone 30 mg PO DAILY repaglinide 2 mg PO TID warfarin 5 mg See Protocol PO DAILY Nursing Note INR 3.3-? out of therapeutic range of 2-3 Medications and supplements reviewed Patient status: no c.o, had sinus headache last week, had tyleniol Medications or supplements: no changes Diet: same Denies any signs and symptoms of bleeding or clotting or unusual bruising Bleeding, bruising, clotting discussed Nutritional guidance given: eat greens to lower Dose: 2.5mg today then cont reg 5mg x 6, 2.5mg x 1 F/U INR Date : pt req 3 weeks? Patient verbalizing understanding of instructions given. Anti-Coag Initial Assessment Social Hx Patient Tobacco Use Status: Never used Tobacco alcohol intake: never Coding Level of Care Code Est Patient Level 1 Diagnoses Current use of anticoagulant therapy Z79.01 Results AMB INR Fingerstick AMB INR Fingerstick 3.3 Last Edit by Nicole Otto RN on 11/16/23 10:47 Assessment & Plan Assessment & Plan (1) Current use of anticoagulant therapy: Code(s): Z79.01 - [facility] (current) use of anticoagulants Category: Medical
[2023-11-16 10:47] LABS: Prothrombin Time Whole Bld POC 39.5 sec (11.1-13.5); ~PT, ~INR - Anti Coag Clinic 3.3 (0.9-1.1)
== END 2023-11-16 10:53 | disposition home or self-care (01) ==
LOC: HO.ACS 10:36
PROVIDERS: PCP Internal Medicine; Visit Provider Internal Medicine
DX: Z79.01 Long term (current) use of anticoagulants (principal)

== ENCOUNTER → 2023-11-16 10:36 | Outpatient (BNVA) | payer MEDICARE, SELFPAY | PROVIDERS: PCP Internal Medicine; Visit Provider Internal Medicine | DX: I48.20 Chronic atrial fibrillation, unspecified (principal); Z79.01 Long term (current) use of anticoagulants; Z51.81 Encounter for therapeutic drug level monitoring | CPT/HCPCS: 85610; 99211 ==

== ENCOUNTER 2023-11-26 10:37 | Outpatient (AMB) | payer MEDICARE, SELFPAY ==
--- NOTE | 2023-11-26 11:11 | MHC.PC.OV ---
Vital Signs 11/26/23 11:12 11/26/23 11:41 Height 5 ft 3 in Weight 165 lb 6 oz BMI 29.3 BP 162/78 H 140/80 H Blood Pressure Location Lt brachial Rt brachial Position Sitting Sitting Pulse 70 Pulse Source Pulse Oximeter Pulse Oximetry (%) 98 Oxygen Delivery Method Room Air Intake Visit Reasons: ffup DM ,lipids Intake Note: pt is here to follow up for her lab results Allergies No Known Allergies Allergy (Verified 11/26/23 11:34) Medication List - Last Reconciled 11/26/23 by Genie Lynne MD aspirin (Adult Aspirin Regimen) 81 mg PO DAILY atorvastatin 10 mg PO DAILY blood sugar diagnostic (FreeStyle Lite Strips) USE TO TEST DIRECTED ONCE DAILY (E11.9) brimonidine 0.2% 1 drp ophthalmic (eye) BID digoxin 250 mcg PO DAILY diltiazem HCl 300 mg PO DAILY hydralazine 50 mg PO TID hydrochlorothiazide 25 mg PO DAILY lancets As directed multivitamin 1 tab PO DAILY omega-3 fatty acids 1,200 mg PO BID pioglitazone 30 mg PO DAILY repaglinide 2 mg PO TID warfarin 5 mg See Protocol PO DAILY Tobacco use date assessed: 11/26/23 Fall risk assessment: No Falls in past year Last assessed Fall Risk: 11/26/23 Dental Screening Dental Screen Date: 11/26/23 Did you have a dental visit in the last 12 months?: No Did you have a dental problem in the last 6 months where you did not have access to dental care?: No Was dental information given to patient?: No HPI ffup DM ,lipids HPI Details 73-year-old lady here today for follow-up on her diabetes mellitus and hyperlipidemia. She is currently taking pioglitazone 30 mg once a day and repaglinide 2 mg 1 tablet 3 times a day with meals for diabetes control, and takes atorvastatin 10 mg once a day for her high cholesterol. States that she has been taking her medications as directed, but not following recommended diet, and has not been getting any exercise at home. Her recent fasting labs showed hemoglobin A1c at 8.3%, unchanged from her last test 4 months ago, fasting lipids were within normal limits except for elevated triglycerides and low good cholesterol, and renal function decreased with GFR 40 unchanged from previous. She is up-to-date with her diabetes eye screen, sees Dr. Nicholson. 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, without long-term current use of insulin Colonoscopy refused Hyperkalemia Paroxysmal atrial fibrillation Mixed dyslipidemia Essential hypertension Diabetes mellitus with microalbuminuria, without long-term current use of insulin Surgical History History of placement of ear tubes Hx of cholecystectomy Family History Father Unknown family medical history Mother Unknown family medical history Son Mental health disorder Social History Housing: House Alcohol intake: never Patient Tobacco Use Status: Never used Tobacco e-Cigarette/Vaping Use: Never Used service: No Current occupational status: retired Cognitive needs: No Hearing needs: No Vision needs: No Questionnaire PHQ-9 Over the last 2 weeks, how often have you been bothered by any of the following problems? 1. Little interest or pleasure in doing things: not at all 2. Feeling down, depressed, or hopeless: not at all 3. Trouble falling or staying asleep, or sleeping too much: not at all 4. Feeling tired or having little energy: not at all 5. Poor appetite or overeating: not at all 6. Feeling bad about yourself - or that you are a failure or have let yourself or your family down: not at all 7. Trouble concentrating on things, such as reading the newspaper or watching television: not at all 8. Moving or speaking so slowly that other people could have noticed. Or the opposite - being so fidgety or restless that you have been moving around a lot more than usual: not at all 9. Thoughts that you would be better off or of hurting yourself in some way: not at all Total score: 0 Depression Screening Interpretation: Negative Depression Screening Done: Yes 92699 - PHQ-9 Billing: Yes Source: Developed by Drs. Jeremy Fletcher, Светлана Bess, Garcia Gasca and colleagues, with an educational martir from [employer]. Thrive Questionnaire Date Thrive assessed: 11/26/23 I am a: Patient What is your living situation today?: I have a steady place to live Within the past 12 months, did the food you bought not last and you didn't have the money to get more?: Never true Within the past 12 months, did you worry whether your food would run out before you got money to buy more?: Never true Do you have trouble paying for medicines?: No Do you have trouble getting transportation to medical appointments?: No Do you have trouble paying your heating and electricity bill?: No Do you have trouble taking care of your child, family member or friend?: No Do you have trouble with day-to-day activities such as bathing, preparing meals, shopping, managing finances, etc.?: No Are you currently unemployed and looking for a job?: No Are you interested in more education?: No THRIVE Score: 0 AUDIT C Alcohol Use Questionnaire (AUDIT-C) 1. How often do you have a drink containing alcohol?: Never Total Score: 0 EDE-7 AMB Questionnaire EDE-7 Date EDE - 7 assessed: 11/26/23 Feeling nervous, anxious, or on edge: 0 = Not at all Not being able to stop or control worryin = Not at all Worrying too much about different things: 0 = Not at all Trouble relaxin = Not at all Being so restless that it is hard to sit still: 0 = Not at all Becoming easily annoyed or irritable: 0 = Not at all Feeling afraid as if something awful might happen: 0 = Not at all Total EDE-7 score (0-4 normal; 5-9 mild; 10-14 moderate; 15-21 severe): 0 Source: Developed by Drs. Jeremy Fletcher, Светлана Bess, Garcia Gasca and colleagues, with an educational martir from [employer]. EDE-7 Assessment Billing EDE-7 Assessment Tool: EDE-7 Assessment 29741 Review of Systems Const Denies body aches, Denies fatigue, Denies fever(s), Denies headache(s), Denies weakness and Reports weight gain Eyes Details: Has appointment with Appointment on December [address] Nicholson for diabetes retinopathy screen Denies change in vision ENT Denies dizziness, Denies headache(s), Denies nasal congestion, Denies nasal discharge and Denies sore throat Card Details: Sees Dr. Mireles, has ECHO scheduled on 02/2024 with ffup with him on 05/23/24, per patient Denies chest pain, Denies lightheadedness, Denies palpitations and Denies dyspnea Resp Denies chest congestion, Denies cough, Denies dyspnea and Denies wheezing GI Denies abdominal pain, Denies change in bowel habits and Denies heartburn Details: Has appointment with Dr. Albert 12/27/23 Denies urinary frequency, Denies dysuria and Denies urinary urgency Musc Reports no additional complaints Skin/Breast Denies lesions and Denies rash Neuro Denies dizziness, Denies headache(s) and Denies weakness Psych Reports no additional complaints Endo Denies fatigue, Denies polydipsia, Denies polyuria and Denies palpitations Jose/Lymph Denies easy bruising Aller/Immun Denies seasonal rhinorrhea and Denies wheezing Physical exam (Primary Care) Vital Signs: Last Vital Signs Pulse 70 11/26/23 11:12 BP 140/80 H 11/26/23 11:41 Pulse Ox 98 11/26/23 11:12 Oxygen Delivery Method Room Air 11/26/23 11:12 BMI result Body Mass Index 29.3 Tobacco/Smoking Status: Tobacco use Status Tobacco use date assessed 11/26/23 11/26/23 11:16 Patient Tobacco Use Status Never used Tobacco 11/26/23 11:11 e-Cigarette/Vaping Use Never Used 11/26/23 11:11 PHQ-9: PHQ-9 Score PHQ-9: Total score 0 11/26/23 11:50 Depression Screening Interpretation: Negative Thrive Assessment: Date of Thrive Assessment Date Thrive assessed 11/26/23 11/26/23 11:50 Const Other: Const General:?cooperative, comfortable and no acute distress Orientation/consciousness:?patient oriented x3 Limitations:?no limitations HENMT Ears:?hearing grossly normal bilaterally, external ears normal, TM's normal bilaterally and EAC's normal General nose exam:?Normal external nose present, Normal nasal mucous membranes and turbinates present and No nasal discharge present Mouth:?Normal oral and palatal mucosa present, oropharynx normal and moist mucous membranes Throat:?Yes posterior oropharynx normal Eyes General:?appearance normal, both eyes and all related structures Conjunctivae:?conjunctivae normal Pupils:?Equal, round and reactive pupils present EOM:?EOMs intact bilaterally Neck Neck:?Yes full ROM, Yes no lymphadenopathy and Yes supple Resp Effort & Inspection:?normal respiratory effort and able to speak in complete sentences Auscultation:?clear to auscultation bilaterally Cardio Rate:?regular rate Rhythm:?regular rhythm Heart sounds:?S1 normal heart sound present and S2 normal heart sound present GI Inspection:?Yes normal to inspection Palpation (GI):?Soft to palpation, nontender and no masses Auscultation:?normal bowel sounds Skin General skin exam:?no rashes or lesions noted Neuro General:?patient oriented x3, gait normal, tone normal, moves all extremities, Normal light touch and pain sensation and no focal motor deficits Cranial nerves:?Yes Equal, round and reactive pupils present Cognition (Neuro):?normal cognition Gait exam (Neuro):?Normal gait present Motor exam (neuro):?5/5 motor strength present throughout Results Reviewed Results Reviewed: Name: Carmela Lundberg Age/Sex: 73/F : 1950 Unit#: [id number] Attend Dr: Genie Lynne MD Re10/27/23 Status: DEP REF Location: [facility] Disch: SPEC : [id number] PAPI: 10/27/23 STATUS: COMP REQ : [id number] RECD: 10/27/23-[address]: Genie Lynne MD COMP: 10/27/23-1226 ENTERED: 10/27/23-[address]: ORDERED: Met Prof Fast, AST, ALT, Lipid Panel, Vitamin D 25-OH Test Result Flag Reference Sodium 140 135-145 mmol/L Potassium 4.5 3.3-5.1 mmol/L CL 103 96-108 mmol/L CO2 27 22-29 mmol/L Gap 15 12-20 BUN 31 H 9-16 mg/dL Creat 1.31 0.5-1.4 mg/dL EGFR 40 NOTE: For -[place] Citizen individuals, multiply the result by 1.210. Chronic Kidney Disease: Estimated GFR < 60 mL/min/1.73m2 Severe Kidney Disease: Estimated GFR < 15 mL/min/1.73m2 FBS 192 H 60-99 mg/dL A fasting glucose of 126 mg/dl or greater on more than one occasion is considered diagnostic of diabetes. CA 9.5 8.4-10.2 mg/dL AST (GOT) 15 5-31 U/L ALT (GPT) 16 0-31 U/L Triglyceride 237 H <150 mg/dL Desirable Triglyceride: less than 150 mg/dL Borderline High Triglyceride 150-199 mg/dL High Triglyceride: 200-499 mg/dL Very High Triglyceride: greater than or equal to 5OO mg/dL Cholesterol 175 <200 mg/dL Desirable Cholesterol: less than 200 mg/dL Borderline High Cholesterol: 200-239 mg/dL High Cholesterol: greater than 239 mg/dL LDL Calculated 96 <100 mg/dL Desirable LDL: less than 100 mg/dL Near Optimal/Above Optimal LDL: 110-129 mg/dL Borderline High LDL: 130-159 mg/dL High LDL: 160-189 mg/dL Very High LDL: greater than or equal to 190 mg/dL HDL 32 L >40 mg/dL Desirable HDL: greater than 40 mg/dL Note: This HDL assay may give artificially low results in patients with liver disease. Vit D 25-OH Tot 39.7 >30 ng/mL Health Based Reference Values* < 20 ng/mL Deficient 20-30 ng/mL Insufficient > 30 ng/mL Sufficient Laboratory Tests 10/27/23 08:56 Estimat Average Glucose 192 Hemoglobin A1c % 8.3 H Assessment and Plan Assessment & Plan (1) Diabetes mellitus with microalbuminuria, without long-term current use of insulin: Code(s): E11.29 - Type 2 diabetes mellitus with other diabetic kidney complication; R80.9 - Proteinuria, unspecified Plan: Continue with repaglinide 2 mg , 1 tablet 3 times a day and pioglitazone 30 mg daily. Added Farxiga 5 mg per tablet to take 1 tablet once a day in a.m. an hour before breakfast with glass of water. Patient to see [place] today for dietary guide and diabetic education. She sees Dr. Nicholson for her routine eye exam and retinopathy screening. Up-to-date with all her vaccinations. Repeat another hemoglobin A1c in 3 months (2) Mixed dyslipidemia: Code(s): E78.2 - Mixed hyperlipidemia Plan: Continue atorvastatin 10 mg daily, repeat another fasting lipid panel, liver enzymes in 3 months. She will be seeing [place] today for dietary guidance (3) CKD (chronic kidney disease) stage 3, GFR 30-59 ml/min: Code(s): N18.30 - Chronic kidney disease, stage 3 unspecified Plan: Has an appointment with Dr. Albert in December 2023 (4) Essential hypertension: Code(s): I10 - Essential (primary) hypertension Plan: Currently being followed by Dr. Mireles, requested consult reports from his off (5) Paroxysmal atrial fibrillation: Comment: followed by , chronic anticoagulation with Coumadin Code(s): I48.0 - Paroxysmal atrial fibrillation Plan: Currently on digoxin, aspirin, Coumadin, followed by Dr. Mireles (6) Colonoscopy refused: Code(s): Z53.20 - Procedure and treatment not carried out because of patient's decision for unspecified reasons (7) Mammogram declined: Code(s): Z53.20 - Procedure and treatment not carried out because of patient's decision for unspecified reasons Orders: Orders Hemoglobin A1c 02/26/24 E11.29 - Type 2 diabetes mellitus with other diabetic kidney complication, E78.2 - Mixed hyperlipidemia, I10 - Essential (primary) hypertension, R80.9 - Proteinuria, unspecified Basic Metabolic Panel Fasting 02/26/24 E11.29 - Type 2 diabetes mellitus with other diabetic kidney complication, E78.2 - Mixed hyperlipidemia, I10 - Essential (primary) hypertension, R80.9 - Proteinuria, unspecified Aspartate Amino Transferase 02/26/24 E11.29 - Type 2 diabetes mellitus with other diabetic kidney complication, E78.2 - Mixed hyperlipidemia, I10 - Essential (primary) hypertension, R80.9 - Proteinuria, unspecified Lipid Panel 02/26/24 E11.29 - Type 2 diabetes mellitus with other diabetic kidney complication, E78.2 - Mixed hyperlipidemia, I10 - Essential (primary) hypertension, R80.9 - Proteinuria, unspecified Alanine Aminotransferase 02/26/24 E11.29 - Type 2 diabetes mellitus with other diabetic kidney complication, E78.2 - Mixed hyperlipidemia, I10 - Essential (primary) hypertension, R80.9 - Proteinuria, unspecified Medications: New Farxiga (dapagliflozin propanediol) 5 mg PO QAM 30 tabs 5RF NS Coding Level of Care Code Est Pt Level 4 (38964) Diagnoses Diabetes mellitus with microalbuminuria, without long-term current use of insulin E11.29; R80.9 Mixed dyslipidemia E78.2 CKD (chronic kidney disease) stage 3, GFR 30-59 ml/min N18.30 Essential hypertension I10 Paroxysmal atrial fibrillation I48.0 Colonoscopy refused Z53.20 Mammogram declined Z53.20 Additional Codes EDE-7 Assessment Billing - EDE-7 Assessment Tool: EDE-7 Assessment [id number] ([id number])
[2023-11-26 11:12] VITALS: BP 162/78; PULSE 70; O2SAT 98; BMI 29.3
[2023-11-26 11:41] VITALS: BP 140/80
== END 2023-11-26 11:54 | disposition home or self-care (01) ==
PROVIDERS: PCP Internal Medicine; Visit Provider Internal Medicine
DX: E11.29 Type 2 diabetes mellitus with other diabetic kidney complication (principal); N18.30 Chronic kidney disease, stage 3 unspecified; I48.0 Paroxysmal atrial fibrillation; R80.9 Proteinuria, unspecified; E78.2 Mixed hyperlipidemia; I10 Essential (primary) hypertension; Z53.20 Procedure and treatment not carried out because of patient's decision for unspecified reasons
CPT/HCPCS: 99214

== ENCOUNTER 2023-12-03 10:49 | Outpatient (AMB) | payer MEDICARE, SELFPAY ==
[2023-12-03 11:07] LABS: Prothrombin Time Whole Bld POC 31.3 sec (11.1-13.5); ~PT, ~INR - Anti Coag Clinic 2.6 (0.9-1.1)
--- NOTE | 2023-12-03 11:14 | MHC.OFFVISCO ---
Intake Intake Visit Reasons: Anticoagulation Allergies No Known Allergies Allergy (Verified 12/03/23 10:50) Medication List - Last Reconciled 12/03/23 by Jody Mcclain, RN aspirin (Adult Aspirin Regimen) 81 mg PO DAILY atorvastatin 10 mg PO DAILY blood sugar diagnostic (FreeStyle Lite Strips) USE TO TEST DIRECTED ONCE DAILY (E11.9) brimonidine 0.2% 1 drp ophthalmic (eye) BID digoxin 250 mcg PO DAILY diltiazem HCl 300 mg PO DAILY hydralazine 50 mg PO TID hydrochlorothiazide 25 mg PO DAILY lancets As directed multivitamin 1 tab PO DAILY omega-3 fatty acids 1,200 mg PO BID pioglitazone 45 mg PO DAILY repaglinide 2 mg PO TID warfarin 5 mg See Protocol PO DAILY Nursing Note Amb to [facility] feeling well s/p eye Dr appointment just now, had dilation and exam Medications and supplements reviewed, sts increase from 30mg to 45mg of pioglitazone (no warfarin interaction per micromedex) No other changes in health, diet, medications, or supplements Denies any unusual signs and symptoms of bruising, bleeding Denies any new Chest pain, SOB, or clotting INR: 2.6 in therapeutic range Nutritional guidance given: balance greens and reds in diet Dose: continue usual dosing;2.5mg on Sundays and 5mg all other days F/U INR: 4/ as same day as kidney visit Patient verbalizes understanding of instructions given with accurate read back/ teach back of dosing Anti-Coag Initial Assessment Social Hx Patient Tobacco Use Status: Never used Tobacco alcohol intake: never Coding Level of Care Code Est Patient Level 1 Diagnoses Current use of anticoagulant therapy Z79.01 Time Spent (min) 15 Assessment & Plan Assessment & Plan (1) Current use of anticoagulant therapy: Code(s): Z79.01 - [facility] (current) use of anticoagulants Category: Medical
== END 2023-12-03 12:17 | disposition home or self-care (01) ==
LOC: HO.ACS 10:49
PROVIDERS: PCP Internal Medicine; Visit Provider Internal Medicine
DX: Z79.01 Long term (current) use of anticoagulants (principal)

== ENCOUNTER → 2023-12-03 10:49 | Outpatient (BNVA) | payer MEDICARE, SELFPAY | PROVIDERS: PCP Internal Medicine; Visit Provider Internal Medicine | DX: I48.20 Chronic atrial fibrillation, unspecified (principal); Z79.01 Long term (current) use of anticoagulants; Z51.81 Encounter for therapeutic drug level monitoring | CPT/HCPCS: 85610; 99211 ==

== ENCOUNTER 2023-12-27 13:12 | Outpatient (AMB) | payer MEDICARE, SELFPAY ==
[2023-12-27 13:29] LABS: Prothrombin Time Whole Bld POC 28.1 sec (11.1-13.5); ~PT, ~INR - Anti Coag Clinic 2.3 (0.9-1.1)
--- NOTE | 2023-12-27 13:31 | MHC.OFFVISCO ---
Intake Intake Visit Reasons: Anticoagulation Allergies No Known Allergies Allergy (Verified 12/27/23 13:25) Medication List - Last Reconciled 12/27/23 by Nelia Puente RN atorvastatin 10 mg PO DAILY blood sugar diagnostic (FreeStyle Lite Strips) USE TO TEST DIRECTED ONCE DAILY (E11.9) brimonidine 0.2% 1 drp ophthalmic (eye) BID digoxin 250 mcg PO DAILY diltiazem HCl 300 mg PO DAILY hydralazine 50 mg PO TID hydrochlorothiazide 25 mg PO DAILY lancets As directed multivitamin 1 tab PO DAILY omega-3 fatty acids 1,200 mg PO BID pioglitazone 45 mg PO DAILY repaglinide 2 mg PO TID warfarin 5 mg See Protocol PO DAILY Nursing Note INR: 2.3 in therapeutic range Medications and supplements reviewed- OFF ASPIRIN OF 12/22/23 . EYE DROPS FOR DRY EYES No changes in health, diet, medications, or supplements, Denies any signs and symptoms of bleeding or bruising or clotting. Bleeding, bruising, clotting discussed Nutritional guidance given REVIEW FOOD LIST WEEKLY, EAT A MIX OF FRUITS AND VEGETABLES, MAY HAVE A MORE ORANGE AND REDS NOW OFF ASPIRIN Dose: KEEP SAME 2.5MG X 1 DAY/ 5MG X 6 DAYS F/U INR: 4 WEEKS Patient verbalizes understanding of instructions given Anti-Coag Initial Assessment Social Hx Patient Tobacco Use Status: Never used Tobacco alcohol intake: never Coding Level of Care Code Est Patient Level 1 Diagnoses Current use of anticoagulant therapy Z79.01 Results AMB INR Fingerstick AMB INR Fingerstick 2.3 Last Edit by Nelia Puente RN on 12/27/23 13:29 MANUAL ENTRY FAILED INTERFACING Assessment & Plan Assessment & Plan (1) Current use of anticoagulant therapy: Code(s): Z79.01 - skilled nursing (current) use of anticoagulants Category: Medical
== END 2023-12-27 13:34 | disposition home or self-care (01) ==
LOC: HO.ACS 13:12
PROVIDERS: PCP Internal Medicine; Visit Provider Internal Medicine
DX: Z79.01 Long term (current) use of anticoagulants (principal)

== ENCOUNTER → 2023-12-27 13:12 | Outpatient (BNVA) | payer MEDICARE, SELFPAY | PROVIDERS: PCP Internal Medicine; Visit Provider Internal Medicine | DX: I48.20 Chronic atrial fibrillation, unspecified (principal); Z51.81 Encounter for therapeutic drug level monitoring; Z79.01 Long term (current) use of anticoagulants | CPT/HCPCS: 85610; 99211 ==

== ENCOUNTER 2024-01-27 09:43 | Outpatient (AMB) | payer MEDICARE, SELFPAY ==
[2024-01-27 09:53] LABS: Prothrombin Time Whole Bld POC 27.9 sec (11.1-13.5); ~PT, ~INR - Anti Coag Clinic 2.3 (0.9-1.1)
--- NOTE | 2024-01-27 10:04 | MHC.OFFVISCO ---
Intake Intake Visit Reasons: Anticoagulation Allergies No Known Allergies Allergy (Verified 01/27/24 09:48) Medication List - Last Reconciled 01/27/24 by Luisa Robbins RN atorvastatin 10 mg PO DAILY blood sugar diagnostic (FreeStyle Lite Strips) USE TO TEST DIRECTED ONCE DAILY (E11.9) brimonidine 0.2% 1 drp ophthalmic (eye) BID digoxin 250 mcg PO DAILY diltiazem HCl CD 300 mg PO DAILY hydralazine 50 mg PO TID hydrochlorothiazide 25 mg PO DAILY lancets As directed multivitamin 1 tab PO DAILY omega-3 fatty acids 1,200 mg PO BID pioglitazone 45 mg PO DAILY repaglinide 2 mg PO TID warfarin 5 mg See Protocol PO DAILY Nursing Note NO CP,SOB,DIET/MED CHANGES,FALLS OR SX OF BLEEDING CONTINUE PRESENT DOSE AND FOLLOW-UP IN 4 WEEKS. GOOD UNDERSTANDING OF DOSING INSTR. Anti-Coag Initial Assessment Social Hx Patient Tobacco Use Status: Never used Tobacco alcohol intake: never Coding Level of Care Code Est Patient Level 1 Diagnoses Current use of anticoagulant therapy Z79.01 Assessment & Plan Assessment & Plan (1) Current use of anticoagulant therapy: Code(s): Z79.01 - intermediate (current) use of anticoagulants Category: Medical
== END 2024-01-27 10:05 | disposition home or self-care (01) ==
LOC: HO.ACS 09:43
PROVIDERS: PCP Internal Medicine; Visit Provider Internal Medicine
DX: Z79.01 Long term (current) use of anticoagulants (principal)

== ENCOUNTER → 2024-01-27 09:43 | Outpatient (BNVA) | payer MEDICARE, SELFPAY | PROVIDERS: PCP Internal Medicine; Visit Provider Internal Medicine | DX: I48.20 Chronic atrial fibrillation, unspecified (principal); Z51.81 Encounter for therapeutic drug level monitoring; Z79.01 Long term (current) use of anticoagulants | CPT/HCPCS: 85610; 99211 ==

== ENCOUNTER 2024-02-22 10:07 | Outpatient (AMB) | payer MEDICARE, SELFPAY ==
[2024-02-22 10:32] LABS: Prothrombin Time Whole Bld POC 29.1 sec (11.1-13.5); ~PT, ~INR - Anti Coag Clinic 2.4 (0.9-1.1)
--- NOTE | 2024-02-22 10:33 | MHC.OFFVISCO ---
Intake Intake Visit Reasons: Anticoagulation Allergies No Known Allergies Allergy (Verified 02/22/24 10:20) Medication List - Last Reconciled 02/22/24 by Jody Scott RN atorvastatin 10 mg PO DAILY blood sugar diagnostic (FreeStyle Lite Strips) USE TO TEST DIRECTED ONCE DAILY (E11.9) brimonidine 0.2% 1 drp ophthalmic (eye) BID digoxin 250 mcg PO DAILY diltiazem HCl CD 300 mg PO DAILY hydralazine 50 mg PO TID hydrochlorothiazide 25 mg PO DAILY lancets As directed multivitamin 1 tab PO DAILY omega-3 fatty acids 1,200 mg PO BID pioglitazone 45 mg PO DAILY repaglinide 2 mg PO TID warfarin 5 mg See Protocol PO DAILY Nursing Note INR: 2.4 in therapeutic range OF 2-3 Medications and supplements reviewed: NO CHANGE No changes in health, diet, medications, or supplements, Denies any signs and symptoms of bleeding or bruising or clotting. Bleeding, bruising, clotting discussed Nutritional guidance given Dose: 5MG X 6 days and 2.5mg X 1 day F/U INR: 1 month Patient verbalizes understanding of instructions given Anti-Coag Initial Assessment Social Hx Patient Tobacco Use Status: Never used Tobacco alcohol intake: never Coding Level of Care Code Est Patient Level 1 Diagnoses Current use of anticoagulant therapy Z79.01 Results AMB INR Fingerstick AMB INR Fingerstick 2.4 Last Edit by Jody Scott RN on 02/22/24 10:26 INTERFACE DELAY Assessment & Plan Assessment & Plan (1) Current use of anticoagulant therapy: Code(s): Z79.01 - [facility] use of [facility]agulants Category: Medical
== END 2024-02-22 11:11 | disposition home or self-care (01) ==
LOC: HO.ACS 10:07
PROVIDERS: PCP Internal Medicine; Visit Provider Internal Medicine
DX: Z79.01 Long term (current) use of anticoagulants (principal)

== ENCOUNTER → 2024-02-22 10:07 | Outpatient (BNVA) | payer MEDICARE, SELFPAY | PROVIDERS: PCP Internal Medicine; Visit Provider Internal Medicine | DX: I48.20 Chronic atrial fibrillation, unspecified (principal); Z79.01 Long term (current) use of anticoagulants; Z51.81 Encounter for therapeutic drug level monitoring | CPT/HCPCS: 85610; 99211 ==

== ENCOUNTER 2024-03-03 08:26 | Outpatient (AMB) | payer MEDICARE, SELFPAY ==
[2024-03-03 09:11] VITALS: BP 150/70; PULSE 83; TEMP 36.1; O2SAT 97; BMI 29.9
--- NOTE | 2024-03-03 09:11 | AM.OFFWIN_ITS ---
Intake Vital Signs 03/03/24 09:11 Height 5 ft 3 in Weight 169 lb BMI 29.9 BP 150/70 H Blood Pressure Location Lt brachial Position Sitting Pulse 83 Pulse Source Pulse Oximeter Temp 97.0 F Temp Source Temporal Artery Scan Pulse Oximetry (%) 97 Oxygen Delivery Method Room Air Intake Visit Reasons: EP cut on LT toe/red ?infection Intake Note: pt is here today for cut lft toe red started 1 week ago Patient Tobacco Use Status: Never used Tobacco Allergies No Known Allergies Allergy (Verified 03/03/24 09:18) HPI HPI Comments History of Present Illness Details Patient is a 73-year-old female complaining of a cut on her left toe with associated pain times 10 days. She states she scratched the top of her left great toe while getting down from a chair, she tried putting antibiotic cream on it and it seemed to get a little bit better but it is now getting worse. She states there is redness and pain and is getting difficult to walk on. She also states she has swelling in the foot which is not normal for her. She denies any fever. Patient does state she is a type 2 diabetic. She denies any history of gout. 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, without long-term current use of insulin Colonoscopy refused Hyperkalemia Paroxysmal atrial fibrillation Mixed dyslipidemia Essential hypertension Diabetes mellitus with microalbuminuria, without long-term current use of insulin Surgical History History of placement of ear tubes Hx of cholecystectomy Family History Father Unknown family medical history Mother Unknown family medical history Son Mental health disorder Social History Housing: House Alcohol intake: never Patient Tobacco Use Status: Never used Tobacco e-Cigarette/Vaping Use: Never Used service: No Current occupational status: retired Cognitive needs: No Hearing needs: No Vision needs: No Review of Systems Const All systems reviewed & are unremarkable except as noted in HPI and below Physical Exam Vital Signs: Last Vital Signs Temp 97.0 F 03/03/24 09:11 Pulse 83 03/03/24 09:11 BP 150/70 H 03/03/24 09:11 Pulse Ox 97 03/03/24 09:11 Oxygen Delivery Method Room Air 03/03/24 09:11 BMI result Body Mass Index 29.9 Const General: cooperative, healthy appearing, comfortable, no acute distress and well developed Orientation/consciousness: patient oriented x3 Limitations: no limitations HEENT Head: Yes normal to inspection Eyes General: appearance normal, both eyes and all related structures Neck Neck: Yes normal visual inspection and Yes full ROM Resp Effort & Inspection: normal respiratory effort and able to speak in complete sentences Skin Other: 2cm abrasion on distal dorsal left foot at the base of the great toe, erythema and warmth extending to the medial aspect of the foot. No drainage noted, no ecchymosis noted Neuro General: patient oriented x3 Extrem General: Yes normal to inspection Assessment & Plan Assessment & Plan (1) Cellulitis: Code(s): L03.90 - Cellulitis, unspecified Qualifiers: Laterality: left Site of cellulitis: extremity Site of cellulitis of extremity: lower extremity Qualified Code(s): L03.116 - Cellulitis of left lower limb Plan: Recommended patient keep her blood sugars as tightly controlled as she can, also recommended she apply an ointment such as Aquaphor or Vaseline to the abrasion area and take the antibiotics and fall as directed. Follow up with us or her PCP if no resolution. I am unable to transmit prescriptions to [facility] at this time, therefore I printed the prescription for the patient to bring to any pharmacy she chooses. I did call [facility] to try to rectify the issue and they are putting a ticket in with their ID Department. Plan See above Medications: New cefuroxime axetil 500 mg PO Q12H 14 tabs 0RF Bertha Roblero PA-C cefuroxime axetil 500 mg PO Q12H 10 tabs 0RF Bertha Roblero PA-C cefuroxime axetil 500 mg PO Q12H 7 days 14 tabs 0RF Dorinda Grey CNP L03.116 - Cellulitis of left lower limb Coding Level of Care Code Est Pt Level 3 (54915) Diagnoses Cellulitis of left lower extremity L03.116 Laterality: left Site of cellulitis: extremity Site of cellulitis of extremity: lower extremity
== END 2024-03-03 09:53 | disposition home or self-care (01) ==
PROVIDERS: PCP Internal Medicine; Visit Provider Physician Assistant
DX: L03.116 Cellulitis of left lower limb (principal)
CPT/HCPCS: 99213

== ENCOUNTER 2024-03-10 13:08 | Outpatient (AMB) | payer MEDICARE, SELFPAY ==
--- NOTE | 2024-03-10 13:10 | MHC.OFFWIV ---
Intake Vital Signs 03/10/24 13:11 Height 5 ft 3 in Weight 172 lb BMI 30.5 BP 160/70 H Blood Pressure Location Lt brachial Position Sitting Pulse 92 Pulse Source Pulse Oximeter Temp 97.5 F Temp Source Temporal Artery Scan Pulse Oximetry (%) 95 Oxygen Delivery Method Room Air Intake Visit Reasons: EP LT foot recheck Intake Note: pt is here today lft foot recheck started 4 days Patient Tobacco Use Status: Never used Tobacco Allergies No Known Allergies Allergy (Verified 03/10/24 13:15) Do you need a note to return to daycare/school/sports/work: No HPI HPI Comments History of Present Illness Details Patient is a 73-year-old female who was seen at this clinic on March 03 diagnosed with a left foot cellulitis and is here for a recheck today. She states her toe feels better she can move it without pain, is a small cut seems to have healed and the area is less red. Being diabetic, she just wanted to have somebody take a look at it. She does state her blood sugars have been in good control. 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, without long-term current use of insulin Colonoscopy refused Hyperkalemia Paroxysmal atrial fibrillation Mixed dyslipidemia Essential hypertension Diabetes mellitus with microalbuminuria, without long-term current use of insulin Surgical History History of placement of ear tubes Hx of cholecystectomy Family History Father Unknown family medical history Mother Unknown family medical history Son Mental health disorder Social History Housing: House Alcohol intake: never Patient Tobacco Use Status: Never used Tobacco e-Cigarette/Vaping Use: Never Used service: No Current occupational status: retired Cognitive needs: No Hearing needs: No Vision needs: No Review of Systems Const All systems reviewed & are unremarkable except as noted in HPI and below Physical Exam Const General: cooperative, healthy appearing, comfortable, no acute distress and well developed Orientation/consciousness: patient oriented x3 Limitations: no limitations Eyes General: appearance normal, both eyes and all related structures Resp Effort & Inspection: normal respiratory effort and able to speak in complete sentences Skin Other: slight erythema at base of great toe and medial aspect of left foot, no laceration, no ecchymosis, no warmth and no induration, General skin exam: no rashes or lesions noted Neuro General: patient oriented x3 Assessment & Plan Assessment & Plan (1) Cellulitis: Code(s): L03.90 - Cellulitis, unspecified Qualifiers: Site of cellulitis: extremity Site of cellulitis of extremity: lower extremity Laterality: left Qualified Code(s): L03.116 - Cellulitis of left lower limb Plan: Cellulitis on left foot is much improved, almost gone, patient finished taking antibiotics today, advised keep tight blood sugar control, and if it worsens, to follow up with her primary care doctor or cook starch. Plan see above Coding Level of Care Code Est Pt Level 2 (04019) Diagnoses Cellulitis of left lower extremity L03.116 Site of cellulitis: extremity Site of cellulitis of extremity: lower extremity Laterality: left
[2024-03-10 13:11] VITALS: BP 160/70; PULSE 92; TEMP 36.4; O2SAT 95; BMI 30.5
== END 2024-03-10 16:35 | disposition home or self-care (01) ==
PROVIDERS: PCP Internal Medicine; Visit Provider Physician Assistant
DX: L03.116 Cellulitis of left lower limb (principal)
CPT/HCPCS: 99212

== ENCOUNTER → 2024-03-22 09:39 | Outpatient (BNVA) | payer MEDICARE, SELFPAY | PROVIDERS: PCP Internal Medicine; Visit Provider Internal Medicine | DX: I48.20 Chronic atrial fibrillation, unspecified (principal); Z79.01 Long term (current) use of anticoagulants; Z51.81 Encounter for therapeutic drug level monitoring | CPT/HCPCS: 85610; 99211 ==

== ENCOUNTER 2024-04-26 10:01 | Outpatient (AMB) | payer MEDICARE, SELFPAY ==
[2024-04-26 10:12] LABS: Prothrombin Time Whole Bld POC 25.4 sec (11.1-13.5); ~PT, ~INR - Anti Coag Clinic 2.1 (0.9-1.1)
--- NOTE | 2024-04-26 10:19 | MHC.OFFVISCO ---
Intake Intake Visit Reasons: Anticoagulation Allergies No Known Allergies Allergy (Verified 04/26/24 10:01) Medication List - Last Reconciled 04/26/24 by Nelia Puente RN atorvastatin 10 mg PO DAILY blood sugar diagnostic (FreeStyle Lite Strips) USE TO TEST DIRECTED ONCE DAILY (E11.9) brimonidine 0.2% 1 drp ophthalmic (eye) BID digoxin 250 mcg PO DAILY diltiazem HCl CD 300 mg PO DAILY hydralazine 50 mg PO TID hydrochlorothiazide 25 mg PO DAILY lancets As directed multivitamin 1 tab PO DAILY omega-3 fatty acids 1,200 mg PO BID pioglitazone 45 mg PO DAILY repaglinide 2 mg PO TID warfarin 5 mg See Protocol PO DAILY Nursing Note INR:2.1in therapeutic range Medications and supplements reviewed No changes in health, diet, medications, or supplements, Denies any signs and symptoms of bleeding or bruising or clotting. Bleeding, bruising, clotting discussed Nutritional guidance given Dose: 2.5MG X 1 DAY/ 5MG X 6DAYS F/U INR: 1 MONTH Patient verbalizes understanding of instructions given Anti-Coag Initial Assessment Social Hx Patient Tobacco Use Status: Never used Tobacco alcohol intake: never Coding Level of Care Code Est Patient Level 1 Diagnoses Current use of anticoagulant therapy Z79.01 Assessment & Plan Assessment & Plan (1) Current use of anticoagulant therapy: Code(s): Z79.01 - intermediate (current) use of anticoagulants Category: Medical
== END 2024-04-26 10:21 | disposition home or self-care (01) ==
LOC: HO.ACS 10:01
PROVIDERS: PCP Internal Medicine; Visit Provider Internal Medicine
DX: Z79.01 Long term (current) use of anticoagulants (principal)

== ENCOUNTER → 2024-04-26 10:01 | Outpatient (BNVA) | payer MEDICARE, SELFPAY | PROVIDERS: PCP Internal Medicine; Visit Provider Internal Medicine | DX: I48.20 Chronic atrial fibrillation, unspecified (principal); Z79.01 Long term (current) use of anticoagulants; Z51.81 Encounter for therapeutic drug level monitoring | CPT/HCPCS: 85610; 99211 ==

== ENCOUNTER 2024-04-28 08:09 | Outpatient (REF) | payer MEDICARE, SELFPAY ==
[2024-04-28 10:37] LABS: Alanine Aminotransferase 19 U/L (0-31); Anion Gap 11 (12-20); Aspartate Amino Transferase 15 U/L (5-31); Blood Urea Nitrogen 36 mg/dL (9-16); Calcium 9.3 mg/dL (8.4-10.2); Carbon Dioxide 28 mmol/L (22-29); Chloride 105 mmol/L (96-108); Cholesterol 145 mg/dL (<200); Estimated Glomerular Filt Rate 46; Glucose Fasting 155 mg/dL (60-99); HDL Cholesterol 30 mg/dL (>40); LDL Cholesterol Calculated 74 mg/dL (<100); Potassium 4.2 mmol/L (3.3-5.1); Sodium 140 mmol/L (135-145); Triglycerides 209 mg/dL (<150)
[2024-04-28 10:53] LABS: Estimated Average Glucose 171 mg/dL; Hemoglobin A1c % 7.6 % (<6.0)
== END 2024-04-28 08:10 | disposition home or self-care (01) ==
LOC: HO.HMGCLDS 08:09
PROVIDERS: PCP Internal Medicine; Visit Provider Internal Medicine
DX: E11.29 Type 2 diabetes mellitus with other diabetic kidney complication (principal); E78.2 Mixed hyperlipidemia; I10 Essential (primary) hypertension; R80.9 Proteinuria, unspecified
CPT/HCPCS: 36415; 80048; 80061; 83036; 84450; 84460

== ENCOUNTER 2024-05-02 10:37 | Outpatient (AMB) | payer MEDICARE, SELFPAY ==
--- NOTE | 2024-05-02 11:04 | MHC.PC.OV ---
Vital Signs 05/02/24 11:26 Height 5 ft 3 in Weight 169 lb BMI 29.9 BP 150/70 H Blood Pressure Location Lt brachial Position Sitting Pulse 66 Pulse Source Pulse Oximeter Pulse Oximetry (%) 96 Oxygen Delivery Method Room Air Intake Visit Reasons: Office visit Intake Note: Pt is here today for her f/u labs Allergies No Known Allergies Allergy (Verified 05/02/24 11:53) Medication List - Last Reconciled 05/02/24 by Genie Lynne MD atorvastatin 10 mg PO DAILY blood sugar diagnostic (FreeStyle Lite Strips) USE TO TEST DIRECTED ONCE DAILY (E11.9) brimonidine 0.2% 1 drp ophthalmic (eye) BID digoxin 250 mcg PO DAILY diltiazem HCl CD 300 mg PO DAILY hydralazine 50 mg PO TID hydrochlorothiazide 25 mg PO DAILY lancets As directed multivitamin 1 tab PO DAILY omega-3 fatty acids 1,200 mg PO BID pioglitazone 45 mg PO DAILY repaglinide 2 mg PO TID warfarin 5 mg See Protocol PO DAILY Tobacco use date assessed: 05/02/24 Fall risk assessment: No Falls in past year Last assessed Fall Risk: 05/02/24 Dental Screening Dental Screen Date: 05/02/24 Did you have a dental visit in the last 12 months?: No Did you have a dental problem in the last 6 months where you did not have access to dental care?: No Was dental information given to patient?: Patient declined HPI Office visit HPI Details 73-year-old lady here today for follow-up on her diabetes mellitus and hyperlipidemia. She is currently taking pioglitazone 30 mg once a day and repaglinide 2 mg 1 tablet 3 times a day with meals for diabetes control, and takes atorvastatin 10 mg once a day and Weston 3 fatty acid supplements 1200 mg twice a day for her hypercholesterolemia. 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, without long-term current use of insulin Colonoscopy refused Hyperkalemia Paroxysmal atrial fibrillation Mixed dyslipidemia Essential hypertension Diabetes mellitus with microalbuminuria, without long-term current use of insulin Surgical History History of placement of ear tubes Hx of cholecystectomy Family History Father Unknown family medical history Mother Unknown family medical history Son Mental health disorder Social History Housing: House Alcohol intake: never Patient Tobacco Use Status: Never used Tobacco e-Cigarette/Vaping Use: Never Used service: No Current occupational status: retired Cognitive needs: No Hearing needs: No Vision needs: No Questionnaire PHQ-9 Over the last 2 weeks, how often have you been bothered by any of the following problems? 1. Little interest or pleasure in doing things: not at all 2. Feeling down, depressed, or hopeless: not at all 3. Trouble falling or staying asleep, or sleeping too much: not at all 4. Feeling tired or having little energy: not at all 5. Poor appetite or overeating: not at all 6. Feeling bad about yourself - or that you are a failure or have let yourself or your family down: not at all 7. Trouble concentrating on things, such as reading the newspaper or watching television: not at all 8. Moving or speaking so slowly that other people could have noticed. Or the opposite - being so fidgety or restless that you have been moving around a lot more than usual: not at all 9. Thoughts that you would be better off or of hurting yourself in some way: not at all Total score: 0 Depression Screening Interpretation: Negative Depression Screening Done: Yes 83553 - PHQ-9 Billing: Yes Source: Developed by Drs. Jeremy Fletcher, Светлана Bess, Garcia Gasca and colleagues, with an educational martir from [employer]. Thrive Questionnaire Date Thrive assessed: 05/02/24 I am a: Patient What is your living situation today?: I have a steady place to live Within the past 12 months, did the food you bought not last and you didn't have the money to get more?: Never true Within the past 12 months, did you worry whether your food would run out before you got money to buy more?: Never true Do you have trouble paying for medicines?: No Do you have trouble getting transportation to medical appointments?: No Do you have trouble paying your heating and electricity bill?: No Do you have trouble taking care of your child, family member or friend?: No Do you have trouble with day-to-day activities such as bathing, preparing meals, shopping, managing finances, etc.?: No Are you currently unemployed and looking for a job?: No Are you interested in more education?: No Please select the resources that you would like help with: Housing/Skilled Nursing Currently or been in a relationship where the following occur: No concerns reported THRIVE Score: 0 AUDIT C Alcohol Use Questionnaire (AUDIT-C) 1. How often do you have a drink containing alcohol?: Never Total Score: 0 EDE-7 AMB Questionnaire EDE-7 Date EDE - 7 assessed: 05/02/24 Feeling nervous, anxious, or on edge: 0 = Not at all Not being able to stop or control worryin = Not at all Worrying too much about different things: 0 = Not at all Trouble relaxin = Not at all Being so restless that it is hard to sit still: 0 = Not at all Becoming easily annoyed or irritable: 0 = Not at all Feeling afraid as if something awful might happen: 0 = Not at all Total EDE-7 score (0-4 normal; 5-9 mild; 10-14 moderate; 15-21 severe): 0 Source: Developed by Drs. Jeremy Fletcher, Светлана Bess, Garcia Gasca and colleagues, with an educational martir from [employer]. Review of Systems Const Denies body aches, Denies fatigue, Denies fever(s), Denies headache(s), Denies weakness and Reports weight gain Eyes Details: Has appointment with [facility] with DM eye exam with Dr. Nicholson Denies change in vision ENT Denies dizziness, Denies headache(s), Denies nasal congestion, Denies nasal discharge and Denies sore throat Card Details: Sees Dr. Mireles, has ECHO scheduled on 02/2024 with ffup with him on 05/23/24, per patient Denies chest pain, Denies lightheadedness, Denies palpitations and Denies dyspnea Resp Denies chest congestion, Denies cough, Denies dyspnea and Denies wheezing GI Denies abdominal pain, Denies change in bowel habits and Denies heartburn Details: Followed by Dr. Albert Denies urinary frequency, Denies dysuria and Denies urinary urgency Musc Reports no additional complaints Skin/Breast Denies lesions and Denies rash Neuro Denies dizziness, Denies headache(s) and Denies weakness Psych Reports no additional complaints Endo Denies fatigue, Denies polydipsia, Denies polyuria and Denies palpitations Jose/Lymph Denies easy bruising Aller/Immun Denies seasonal rhinorrhea and Denies wheezing Physical exam (Primary Care) Vital Signs: Last Vital Signs Pulse 66 05/02/24 11:26 BP 150/70 H 05/02/24 11:26 Pulse Ox 96 05/02/24 11:26 Oxygen Delivery Method Room Air 05/02/24 11:26 BMI result Body Mass Index 29.9 Tobacco/Smoking Status: Tobacco use Status Tobacco use date assessed 05/02/24 05/02/24 11:06 Patient Tobacco Use Status Never used Tobacco 05/02/24 11:04 e-Cigarette/Vaping Use Never Used 05/02/24 11:04 PHQ-9: PHQ-9 Score PHQ-9: Total score 0 05/02/24 11:57 Depression Screening Interpretation: Negative Thrive Assessment: Date of Thrive Assessment Date Thrive assessed 05/02/24 05/02/24 11:06 Currently or been in a relationship where the following occur: No concerns reported Const Other: Const General:?cooperative, comfortable and no acute distress Orientation/consciousness:?patient oriented x3 Limitations:?no limitations HENMT Ears:?hearing grossly normal bilaterally, external ears normal, TM's normal bilaterally and EAC's normal General nose exam:?Normal external nose present, Normal nasal mucous membranes and turbinates present and No nasal discharge present Mouth:?Normal oral and palatal mucosa present, oropharynx normal and moist mucous membranes Throat:?Yes posterior oropharynx normal Eyes General:?appearance normal, both eyes and all related structures Conjunctivae:?conjunctivae normal Pupils:?Equal, round and reactive pupils present EOM:?EOMs intact bilaterally Neck Neck:?Yes full ROM, Yes no lymphadenopathy and Yes supple Resp Effort & Inspection:?normal respiratory effort and able to speak in complete sentences Auscultation:?clear to auscultation bilaterally Cardio Rate:?regular rate Rhythm:?regular rhythm Heart sounds:?S1 normal heart sound present and S2 normal heart sound present GI Inspection:?Yes normal to inspection Palpation (GI):?Soft to palpation, nontender and no masses Auscultation:?normal bowel sounds Skin General skin exam:?no rashes or lesions noted Neuro General:?patient oriented x3, gait normal, tone normal, moves all extremities, Normal light touch and pain sensation and no focal motor deficits Cranial nerves:?Yes Equal, round and reactive pupils present Cognition (Neuro):?normal cognition Gait exam (Neuro):?Normal gait present Motor exam (neuro):?5/5 motor strength present throughout Results Reviewed Results Reviewed: Laboratory Tests 10/27/23 04/28/24 08:56 08:14 Estimat Average Glucose 192 171 Hemoglobin A1c % 8.3 H 7.6 H Name: Carmela Lundberg Age/Sex: 73/F : 1950 Unit#: [id number] Attend Dr: Genie Lynne MD Re04/28/24 Status: DEP REF Location: [facility] Disch: SPEC : [id number] PAPI: 04/28/24 STATUS: COMP REQ : [id number] RECD: 04/28/[address]: Genie Lynne MD COMP: 04/28/24 ENTERED: 04/28/[address] [facility] [address]: ORDERED: Met Prof Fast, AST, ALT, Lipid Panel Test Result Flag Reference Sodium 140 135-145 mmol/L Potassium 4.2 3.3-5.1 mmol/L CL 105 96-108 mmol/L CO2 28 22-29 mmol/L Gap 11 L 12-20 BUN 36 H 9-16 mg/dL Creat 1.16 0.5-1.4 mg/dL EGFR 46 NOTE: For -Vietnamese individuals, multiply the result by 1.210. Chronic Kidney Disease: Estimated GFR < 60 mL/min/1.73m2 Severe Kidney Disease: Estimated GFR < 15 mL/min/1.73m2 FBS 155 H 60-99 mg/dL A fasting glucose of 126 mg/dl or greater on more than one occasion is considered diagnostic of diabetes. CA 9.3 8.4-10.2 mg/dL AST (GOT) 15 5-31 U/L ALT (GPT) 19 0-31 U/L Triglyceride 209 H <150 mg/dL Desirable Triglyceride: less than 150 mg/dL Borderline High Triglyceride 150-199 mg/dL High Triglyceride: 200-499 mg/dL Very High Triglyceride: greater than or equal to 5OO mg/dL Cholesterol 145 <200 mg/dL Desirable Cholesterol: less than 200 mg/dL Borderline High Cholesterol: 200-239 mg/dL High Cholesterol: greater than 239 mg/dL LDL Calculated 74 <100 mg/dL Desirable LDL: less than 100 mg/dL Near Optimal/Above Optimal LDL: 110-129 mg/dL Borderline High LDL: 130-159 mg/dL High LDL: 160-189 mg/dL Very High LDL: greater than or equal to 190 mg/dL HDL 30 L >40 mg/dL Desirable HDL: greater than 40 mg/dL Note: This HDL assay may give artificially low results in patients with liver disease. Assessment and Plan Assessment & Plan (1) Diabetes mellitus with microalbuminuria, without long-term current use of insulin: Code(s): E11.29 - Type 2 diabetes mellitus with other diabetic kidney complication; R80.9 - Proteinuria, unspecified Plan: Diabetes controlled improving now with hemoglobin A1c at 7.6%. Goal however is less than 7% for now, continued on pioglitazone 45 mg daily and increase repaglinide dose to 4 mg, 3 times a day with meals. Reinforced importance of following a diabetic diet and getting regular exercise. Up-to-date with her diabetes retinopathy screening (2) Essential hypertension: Code(s): I10 - Essential (primary) hypertension Plan: Currently on hydrochlorothiazide, hydralazine, followed by Dr. Albert (3) Mixed dyslipidemia: Code(s): E78.2 - Mixed hyperlipidemia Plan: Reviewed recent fasting lipid profile with patient with levels within normal limit . Continue atorvastatin 10 mg daily in addition to Weston 3 fatty acid supplements taken 1 capsule twice a day. , in addition to adherence to low-cholesterol diet and regular exercise, at least 30 minutes 3 to 4 times a week. Advised patient to make healthy food choices, eat more fruits, vegetables, whole grains, wild caught fish and low-fat dairy. Limit amount of meat and fried or fatty food products, as well as processed foods and fast foods. Follow-up scheduled with repeat fasting lipid panel in 3 months. Orders: Orders Basic Metabolic Panel Fasting 07/29/24 E11.29 - Type 2 diabetes mellitus with other diabetic kidney complication, E78.2 - Mixed hyperlipidemia, I10 - Essential (primary) hypertension, N18.30 - Chronic kidney disease, stage 3 unspecified, R80.9 - Proteinuria, unspecified Alanine Aminotransferase 07/29/24 E11.29 - Type 2 diabetes mellitus with other diabetic kidney complication, E78.2 - Mixed hyperlipidemia, I10 - Essential (primary) hypertension, N18.30 - Chronic kidney disease, stage 3 unspecified, R80.9 - Proteinuria, unspecified Hemoglobin A1c 07/29/24 E11.29 - Type 2 diabetes mellitus with other diabetic kidney complication, E78.2 - Mixed hyperlipidemia, I10 - Essential (primary) hypertension, N18.30 - Chronic kidney disease, stage 3 unspecified, R80.9 - Proteinuria, unspecified Aspartate Amino Transferase 07/29/24 E11.29 - Type 2 diabetes mellitus with other diabetic kidney complication, E78.2 - Mixed hyperlipidemia, I10 - Essential (primary) hypertension, N18.30 - Chronic kidney disease, stage 3 unspecified, R80.9 - Proteinuria, unspecified Lipid Panel 07/29/24 E11.29 - Type 2 diabetes mellitus with other diabetic kidney complication, E78.2 - Mixed hyperlipidemia, I10 - Essential (primary) hypertension, N18.30 - Chronic kidney disease, stage 3 unspecified, R80.9 - Proteinuria, unspecified Medications: Changed From repaglinide administer within 30 minutes of a meal or snack 2 mg PO TID 270 tabs 1RF To repaglinide administer within 30 minutes of a meal or snack 4 mg (2 x 2 mg) PO TID 90 days 540 tabs 1RF Coding Level of Care Code Est Pt Level 4 (92159) Complex EM visit Add On G2211 Diagnoses Diabetes mellitus with microalbuminuria, without long-term current use of insulin E11.29; R80.9 Essential hypertension I10 Mixed dyslipidemia E78.2
[2024-05-02 11:26] VITALS: BP 150/70; PULSE 66; O2SAT 96; BMI 29.9
== END 2024-05-02 12:18 | disposition home or self-care (01) ==
PROVIDERS: PCP Internal Medicine; Visit Provider Internal Medicine
DX: E11.29 Type 2 diabetes mellitus with other diabetic kidney complication (principal); R80.9 Proteinuria, unspecified; I10 Essential (primary) hypertension; E78.2 Mixed hyperlipidemia
CPT/HCPCS: 99214; G2211

== ENCOUNTER 2024-05-23 10:28 | Outpatient (AMB) | payer MEDICARE, SELFPAY ==
[2024-05-23 10:40] LABS: Prothrombin Time Whole Bld POC 22.2 sec (11.1-13.5); ~PT, ~INR - Anti Coag Clinic 1.9 (0.9-1.1)
--- NOTE | 2024-05-23 10:46 | MHC.OFFVISCO ---
Intake Intake Visit Reasons: Anticoagulation Allergies No Known Allergies Allergy (Verified 05/23/24 10:35) Medication List - Last Reconciled 05/23/24 by Jody Scott, JETT atorvastatin 10 mg PO DAILY blood sugar diagnostic (FreeStyle Lite Strips) USE TO TEST DIRECTED ONCE DAILY (E11.9) brimonidine 0.2% 1 drp ophthalmic (eye) BID digoxin 250 mcg PO DAILY diltiazem HCl CD 300 mg PO DAILY hydralazine 50 mg PO TID hydrochlorothiazide 25 mg PO DAILY lancets As directed multivitamin 1 tab PO DAILY omega-3 fatty acids 1,200 mg PO BID pioglitazone 45 mg PO DAILY repaglinide 4 mg (2 x 2 mg) PO TID 90 days warfarin 5 mg See Protocol PO DAILY Nursing Note INR: 1.9 in therapeutic of range of 2-3 Medications and supplements reviewed No changes in health, diet, medications, or supplements, Denies any signs and symptoms of bleeding or bruising or clotting. Bleeding, bruising, clotting discussed Nutritional guidance given to avoid greens today and have a serving of food from the list that raises the INR. Food list reviewed. 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
== END 2024-05-23 10:49 | disposition home or self-care (01) ==
LOC: HO.ACS 10:28
PROVIDERS: PCP Internal Medicine; Visit Provider Internal Medicine
DX: Z79.01 Long term (current) use of anticoagulants (principal)

== ENCOUNTER → 2024-05-23 10:28 | Outpatient (BNVA) | payer MEDICARE, SELFPAY | PROVIDERS: PCP Internal Medicine; Visit Provider Internal Medicine | DX: I48.20 Chronic atrial fibrillation, unspecified (principal); Z79.01 Long term (current) use of anticoagulants; Z51.81 Encounter for therapeutic drug level monitoring | CPT/HCPCS: 85610; 99211 ==

== ENCOUNTER 2024-06-21 09:36 | Outpatient (AMB) | payer MEDICARE, SELFPAY ==
--- NOTE | 2024-06-21 09:43 | MHC.OFFVISCO ---
Intake Intake Visit Reasons: Anticoagulation Allergies No Known Allergies Allergy (Verified 06/21/24 09:39) Medication List - Last Reconciled 06/21/24 by Nicole Otto, RN atorvastatin 10 mg PO DAILY blood sugar diagnostic (FreeStyle Lite Strips) USE TO TEST DIRECTED ONCE DAILY (E11.9) brimonidine 0.2% 1 drp ophthalmic (eye) BID digoxin 250 mcg PO DAILY diltiazem HCl CD 300 mg PO DAILY hydralazine 50 mg PO TID hydrochlorothiazide 25 mg PO DAILY lancets As directed multivitamin 1 tab PO DAILY omega-3 fatty acids 1,200 mg PO BID pioglitazone 45 mg PO DAILY repaglinide 4 mg (2 x 2 mg) PO TID 90 days warfarin 5 mg See Protocol PO DAILY Nursing Note INR: 2.1- in therapeutic range of 2-3 Medications and supplements reviewed No changes in health, diet, medications, or supplements, Denies any signs and symptoms of bleeding or bruising or clotting. Bleeding, bruising, clotting discussed Nutritional guidance given - may have had less greens, will eat greens for 2 days, no reds for 2 days Dose: 5mg x 6, 2.5mg x 1 F/U INR: 4 weeks Patient verbalizes understanding of instructions given pt states had cold took tylenol prn and cold med approx 2 weeks ago had flu shot last week 06/15/24 upcoming covid vaccine- req 4 week f/u Anti-Coag Initial Assessment Social Hx Patient Tobacco Use Status: Never used Tobacco alcohol intake: never Coding Level of Care Code Est Patient Level 1 Diagnoses Current use of anticoagulant therapy Z79.01 Assessment & Plan Assessment & Plan (1) Current use of anticoagulant therapy: Code(s): Z79.01 - half-way (current) use of anticoagulants Category: Medical
[2024-06-21 09:45] LABS: ~PT, ~INR - Anti Coag Clinic 2.1 (0.9-1.1)
== END 2024-06-21 09:54 | disposition home or self-care (01) ==
LOC: HO.ACS 09:36
PROVIDERS: PCP Internal Medicine; Visit Provider Internal Medicine
DX: Z79.01 Long term (current) use of anticoagulants (principal)

== ENCOUNTER → 2024-06-21 09:36 | Outpatient (BNVA) | payer MEDICARE, SELFPAY | PROVIDERS: PCP Internal Medicine; Visit Provider Internal Medicine | DX: I48.20 Chronic atrial fibrillation, unspecified (principal); Z79.01 Long term (current) use of anticoagulants; Z51.81 Encounter for therapeutic drug level monitoring | CPT/HCPCS: 85610; 99211 ==

== ENCOUNTER 2024-06-22 10:31 | Outpatient (AMB) | payer MEDICARE, SELFPAY ==
[2024-06-22 10:41] VITALS: BP 160/50; PULSE 80; O2SAT 96; BMI 29.9
--- NOTE | 2024-06-22 10:41 | HO.NEPHOV ---
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 Accompanied by: Self / Same As Patient Allergies No Known Allergies Allergy (Verified 06/22/24 10:45) Medication List - Last Reconciled 06/22/24 by Ranjan Irvin MD atorvastatin 10 mg PO DAILY blood sugar diagnostic (FreeStyle Lite Strips) USE TO TEST DIRECTED ONCE DAILY (E11.9) brimonidine 0.2% 1 drp ophthalmic (eye) BID digoxin 250 mcg PO DAILY diltiazem HCl CD 300 mg PO DAILY hydralazine 50 mg PO TID hydrochlorothiazide 25 mg PO DAILY lancets As directed multivitamin 1 tab PO DAILY omega-3 fatty acids 1,200 mg PO BID pioglitazone 45 mg PO DAILY repaglinide 4 mg (2 x 2 mg) PO TID 90 days warfarin 5 mg See Protocol PO DAILY HPI Comments Details: And is a pleasant 73-year-old woman with a history of hypertension diabetes has been obesity. She was stage III CKD. Recent creatinine is around 1.17 mg/dL She is here for further follow up urine CKD. She continues to have some shortness of breath on exertion however did this improves with some fluid intake. No significant edema no urinary symptoms. 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, without long-term current use of insulin Colonoscopy refused Hyperkalemia Paroxysmal atrial fibrillation Mixed dyslipidemia Essential hypertension Diabetes mellitus with microalbuminuria, without long-term current use of insulin Surgical History History of placement of ear tubes Hx of cholecystectomy Family History Father Unknown family medical history Mother Unknown family medical history Son Mental health disorder Social History Housing: House Alcohol intake: never Patient Tobacco Use Status: Never used Tobacco e-Cigarette/Vaping Use: Never Used service: No Current occupational status: retired Cognitive needs: No Hearing needs: No Vision needs: No Physical Exam Vital Signs: Last Vital Signs Pulse 80 06/22/24 10:41 BP 160/50 H 06/22/24 10:41 Pulse Ox 96 06/22/24 10:41 Oxygen Delivery Method Room Air 06/22/24 10:41 BMI result Body Mass Index 29.9 Const General: comfortable; No acute distress Orientation/consciousness: patient oriented x3 Eyes General: appearance normal, both eyes and all related structures Visual Jon: normal visual jon by confrontation Neck Neck: Yes supple and Yes no JVD Resp Effort & Inspection: normal respiratory effort and respiratory effort not decreased Auscultation: rhonchi Cardio Palpation: no palpable S3 and no palpable S4 Heart sounds: no rubs GI Inspection: Yes normal to inspection Palpation (GI): Soft to palpation Percussion: Yes normal to percussion Auscultation: normal bowel sounds General: Yes no CVA tenderness Back/Spine/Pelvis Back: no CVA tenderness Skin General skin exam: no petechiae and no purpura Neuro General: patient oriented x3 and no focal motor deficits Extrem General: No clubbing and No edema Results Reviewed Nephrology Results: Sodium 140 mmol/L (135-145) 04/28/24 Potassium 4.2 mmol/L (3.3-5.1) 04/28/24 Chloride 105 mmol/L (96-108) 04/28/24 Carbon Dioxide 28 mmol/L (22-29) 04/28/24 BUN 36 mg/dL (9-16) H 04/28/24 Creatinine 1.16 mg/dL (0.5-1.4) 04/28/24 Calcium 9.3 mg/dL (8.4-10.2) 04/28/24 Assessment & Plan Assessment & Plan (1) CKD (chronic kidney disease) stage 3, GFR 30-59 ml/min: Code(s): N18.30 - Chronic kidney disease, stage 3 unspecified Category: Medical (2) Essential hypertension: Code(s): I10 - Essential (primary) hypertension Category: Medical (3) Diabetes mellitus with microalbuminuria, without long-term current use of insulin: Code(s): E11.29 - Type 2 diabetes mellitus with other diabetic kidney complication; R80.9 - Proteinuria, unspecified Category: Medical Plan . Lupe is a pleasant 72-year-old man with a history of longstanding hypertension diabetes mellitus with CKD. Renal function is close to baseline. Clinically she is euvolemic. Blood pressure is suboptimal. Increase hydralazine to 75 mg 3 times a day. Encouraged her to stand low-sodium diet. She will watch renal panel prior to next visit. Screen for anemia and hyperparathyroidism prior to next visit. . Medications: Changed From hydralazine 50 mg PO TID To hydralazine 75 mg (3 x 25 mg) PO TID 270 tabs 1RF Scribe Plan - Not visible on output: inc hydra 75 tid Coding Level of Care Code Est Pt Level 4 (04686) Diagnoses CKD (chronic kidney disease) stage 3, GFR 30-59 ml/min N18.30 Essential hypertension I10 Diabetes mellitus with microalbuminuria, without long-term current use of insulin E11.29; R80.9
== END 2024-06-22 10:58 | disposition home or self-care (01) ==
PROVIDERS: PCP Internal Medicine; Visit Provider Internal Medicine Hypertension Specialist
DX: I12.9 Hypertensive chronic kidney disease with stage 1 through stage 4 chronic kidney disease, or unspecified chronic kidney disease (principal); E11.22 Type 2 diabetes mellitus with diabetic chronic kidney disease; N18.30 Chronic kidney disease, stage 3 unspecified; R80.9 Proteinuria, unspecified
CPT/HCPCS: 99214

== ENCOUNTER → 2024-06-22 10:31 | Outpatient (BNVA) | payer MEDICARE, SELFPAY | PROVIDERS: PCP Internal Medicine; Visit Provider Internal Medicine Hypertension Specialist | DX: E11.22 Type 2 diabetes mellitus with diabetic chronic kidney disease (principal); E11.29 Type 2 diabetes mellitus with other diabetic kidney complication; I12.9 Hypertensive chronic kidney disease with stage 1 through stage 4 chronic kidney disease, or unspecified chronic kidney disease; E66.9 Obesity, unspecified; N18.30 Chronic kidney disease, stage 3 unspecified; R80.9 Proteinuria, unspecified; Z68.29 Body mass index [BMI] 29.0-29.9, adult | CPT/HCPCS: 99212 ==

== ENCOUNTER 2024-07-18 09:48 | Outpatient (AMB) | payer MEDICARE, SELFPAY ==
[2024-07-18 09:57] LABS: ~PT, ~INR - Anti Coag Clinic 2.5 (0.9-1.1)
--- NOTE | 2024-07-18 10:05 | MHC.OFFVISCO ---
Intake Intake Visit Reasons: Anticoagulation Allergies No Known Allergies Allergy (Verified 07/18/24 09:52) Medication List - Last Reconciled 07/18/24 by Jody Scott, RN atorvastatin 10 mg PO DAILY blood sugar diagnostic (FreeStyle Lite Strips) USE TO TEST DIRECTED ONCE DAILY (E11.9) brimonidine 0.2% 1 drp ophthalmic (eye) BID digoxin 250 mcg PO DAILY diltiazem HCl CD 300 mg PO DAILY hydralazine 75 mg (3 x 25 mg) PO TID hydrochlorothiazide 25 mg PO DAILY lancets As directed multivitamin 1 tab PO DAILY omega-3 fatty acids 1,200 mg PO BID pioglitazone 45 mg PO DAILY repaglinide 4 mg (2 x 2 mg) PO TID 90 days warfarin 5 mg See Protocol PO DAILY Nursing Note INR: 2.5 in therapeutic range of 2-3 Medications and supplements reviewed No changes in health, diet, medications, or supplements, Denies any signs and symptoms of bleeding or bruising or clotting. Bleeding, bruising, clotting discussed Nutritional guidance given Dose: continue same dose of 5mg X 6 days and 2.5mg X 1 day F/U INR: 4 weeks Patient verbalizes understanding of instructions given Anti-Coag Initial Assessment Social Hx Patient Tobacco Use Status: Never used Tobacco alcohol intake: never Coding Level of Care Code Est Patient Level 1 Diagnoses Current use of anticoagulant therapy Z79.01 Assessment & Plan Assessment & Plan (1) Current use of anticoagulant therapy: Code(s): Z79.01 - [facility] (current) use of anticoagulants Category: Medical
== END 2024-07-18 10:10 | disposition home or self-care (01) ==
LOC: HO.ACS 09:48
PROVIDERS: PCP Internal Medicine; Visit Provider Internal Medicine
DX: Z79.01 Long term (current) use of anticoagulants (principal)

== ENCOUNTER → 2024-07-18 09:48 | Outpatient (BNVA) | payer MEDICARE, SELFPAY | PROVIDERS: PCP Internal Medicine; Visit Provider Internal Medicine | DX: I48.20 Chronic atrial fibrillation, unspecified (principal); Z79.01 Long term (current) use of anticoagulants; Z51.81 Encounter for therapeutic drug level monitoring | CPT/HCPCS: 85610; 99211 ==

== ENCOUNTER 2024-08-01 07:41 | Outpatient (REF) | payer MEDICARE, SELFPAY ==
[2024-08-01 10:47] LABS: Alanine Aminotransferase 15 U/L (0-31); Anion Gap 10 (12-20); Aspartate Amino Transferase 20 U/L (5-31); Blood Urea Nitrogen 32 mg/dL (9-16); Calcium 9.5 mg/dL (8.4-10.2); Carbon Dioxide 29 mmol/L (22-29); Chloride 103 mmol/L (96-108); Cholesterol 144 mg/dL (<200); Estimated Glomerular Filt Rate 40; Glucose Fasting 143 mg/dL (60-99); HDL Cholesterol 30 mg/dL (>40); LDL Cholesterol Calculated 77 mg/dL (<100); Potassium 3.9 mmol/L (3.3-5.1); Sodium 138 mmol/L (135-145); Triglycerides 186 mg/dL (<150)
[2024-08-01 10:49] LABS: Estimated Average Glucose 180 mg/dL; Hemoglobin A1C 188.2133 umol/L; Hemoglobin A1c % 7.9 % (<6.0); Total Hemoglobin (HGBA1C) 3006.3199 umol/L
== END 2024-08-01 07:42 | disposition home or self-care (01) ==
LOC: HO.HMGCLDS 07:41
PROVIDERS: PCP Internal Medicine; Visit Provider Internal Medicine
DX: I12.9 Hypertensive chronic kidney disease with stage 1 through stage 4 chronic kidney disease, or unspecified chronic kidney disease (principal); E11.29 Type 2 diabetes mellitus with other diabetic kidney complication; R80.9 Proteinuria, unspecified; N18.30 Chronic kidney disease, stage 3 unspecified; E78.2 Mixed hyperlipidemia
CPT/HCPCS: 36415; 80048; 80061; 83036; 84450; 84460

== ENCOUNTER 2024-08-03 11:09 | Outpatient (AMB) | payer MEDICARE, SELFPAY ==
[2024-08-03 11:30] VITALS: BP 140/56; PULSE 51; O2SAT 98; BMI 29.8
--- NOTE | 2024-08-03 11:30 | A.OFFPC_ITS ---
Vital Signs 08/03/24 11:30 Height 5 ft 3 in Weight 168 lb BMI 29.8 BP 140/56 H Blood Pressure Location Rt brachial Position Sitting Pulse 51 Pulse Source Pulse Oximeter Pulse Oximetry (%) 98 Oxygen Delivery Method Room Air Intake Visit Reasons: 3 Month F/U Intake Note: Pt is here today for her 3mo. f/u labs Allergies No Known Allergies Allergy (Verified 08/03/24 11:57) Medication List - Last Reconciled 08/03/24 by Genie Lynne MD atorvastatin 10 mg PO DAILY blood sugar diagnostic (FreeStyle Lite Strips) USE TO TEST DIRECTED ONCE DAILY (E11.9) brimonidine 0.2% 1 drp ophthalmic (eye) BID digoxin 250 mcg PO DAILY diltiazem HCl CD 300 mg PO DAILY hydralazine 75 mg (3 x 25 mg) PO TID hydrochlorothiazide 25 mg PO DAILY lancets As directed multivitamin 1 tab PO DAILY omega-3 fatty acids 1,200 mg PO BID pioglitazone 45 mg PO DAILY repaglinide 4 mg (2 x 2 mg) PO TID 90 days warfarin 5 mg See Protocol PO DAILY Tobacco use date assessed: 08/03/24 Fall risk assessment: No Falls in past year Last assessed Fall Risk: 08/03/24 Dental Screening Dental Screen Date: 08/03/24 Did you have a dental visit in the last 12 months?: No Did you have a dental problem in the last 6 months where you did not have access to dental care?: No Was dental information given to patient?: Patient declined HPI 3 Month F/U HPI Details 74 year-old lady here today for follow-u p on her diabetes mellitus and hyperlipidemia. She is currently taking pioglitazone with dose increased on last visit to 45 mg once a day and repaglinide 2 mg 2 tablet 3 times a day with meals for diabetes control; and takes atorvastatin 10 mg once a day and Massena 3 fatty acid supplements 1200 mg twice a day for her hypercholesterolemia. She has been taking her medicines as directed by admits to being done compliant with her diet. Latest fasting labs showed elevated triglycerides but LDL cholesterol and HDL are within normal limits. Hemoglobin A1c however has increased from 7.6-7.9%. Her diabetes mellitus was better controlled while on metformin but this was discontinued as her renal function started decreasing. Prescribed Jardiance in the past but it was cost prohibitive . She does not want to start any injections at present time. 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, without long-term current use of insulin Colonoscopy refused Hyperkalemia Paroxysmal atrial fibrillation Mixed dyslipidemia Essential hypertension Diabetes mellitus with microalbuminuria, without long-term current use of insulin Surgical History History of placement of ear tubes Hx of cholecystectomy Family History Father Unknown family medical history Mother Unknown family medical history Son Mental health disorder Social History Housing: House Alcohol intake: never Patient Tobacco Use Status: Never used Tobacco e-Cigarette/Vaping Use: Never Used service: No Current occupational status: retired Cognitive needs: No Hearing needs: No Vision needs: No Questionnaire Thrive Questionnaire Date Thrive assessed: 05/02/24 I am a: Patient What is your living situation today?: I have a steady place to live Within the past 12 months, did the food you bought not last and you didn't have the money to get more?: Never true Within the past 12 months, did you worry whether your food would run out before you got money to buy more?: Never true Do you have trouble paying for medicines?: No Do you have trouble getting transportation to medical appointments?: No Do you have trouble paying your heating and electricity bill?: No Do you have trouble taking care of your child, family member or friend?: No Do you have trouble with day-to-day activities such as bathing, preparing meals, shopping, managing finances, etc.?: No Are you currently unemployed and looking for a job?: No Are you interested in more education?: No Please select the resources that you would like help with: None Currently or been in a relationship where the following occur: No concerns reported THRIVE Score: 0 EDE-7 AMB Questionnaire EDE-7 Date EDE - 7 assessed: 05/02/24 Source: Developed by Светлана Muhammad B.W. Shahriar, Garcia Gasca and colleagues, with an educational martir from [employer]. Review of Systems Const Denies body aches, Denies fatigue, Denies fever(s), Denies headache(s), Denies weakness and Reports weight gain Eyes Denies change in vision ENT Denies dizziness, Denies headache(s), Denies nasal congestion, Denies nasal discharge and Denies sore throat Card Details: Sees Dr. Mireles Denies chest pain, Denies lightheadedness, Denies palpitations and Denies dyspnea Resp Denies chest congestion, Denies cough, Denies dyspnea and Denies wheezing GI Denies abdominal pain, Denies change in bowel habits and Denies heartburn Denies urinary frequency, Denies dysuria and Denies urinary urgency Musc Reports no additional complaints Neuro Denies dizziness, Denies headache(s) and Denies weakness Psych Reports no additional complaints Endo Denies fatigue, Denies polydipsia, Denies polyuria and Denies palpitations Jose/Lymph Denies easy bruising Aller/Immun Denies seasonal rhinorrhea and Denies wheezing Physical exam (Primary Care) Vital Signs: Last Vital Signs Pulse 51 08/03/24 11:30 BP 140/56 H 08/03/24 11:30 Pulse Ox 98 08/03/24 11:30 Oxygen Delivery Method Room Air 08/03/24 11:30 BMI result Body Mass Index 29.8 Tobacco/Smoking Status: Tobacco use Status Tobacco use date assessed 08/03/24 08/03/24 11:32 Patient Tobacco Use Status Never used Tobacco 08/03/24 11:30 e-Cigarette/Vaping Use Never Used 08/03/24 11:30 Thrive Assessment: Date of Thrive Assessment Date Thrive assessed 05/02/24 08/03/24 11:30 Currently or been in a relationship where the following occur: No concerns reported Const General: comfortable, no acute distress and alert Orientation/consciousness: patient oriented x3 HENMT Ears: external ears normal General nose exam: Normal external nose present Mouth: moist mucous membranes Eyes General: appearance normal, both eyes and all related structures Conjunctivae: conjunctivae normal Pupils: Equal, round and reactive pupils present EOM: EOMs intact bilaterally Neck Neck: Yes full ROM, Yes no lymphadenopathy and Yes supple Resp Effort & Inspection: normal respiratory effort and able to speak in complete sentences Auscultation: clear to auscultation bilaterally Cardio Rate: regular rate Rhythm: regular rhythm Heart sounds: S1 normal heart sound present and S2 normal heart sound present GI Palpation (GI): Soft to palpation, nontender and no masses Auscultation: normal bowel sounds Skin General skin exam: no rashes or lesions noted Neuro General: patient oriented x3, gait normal, tone normal, moves all extremities, Normal light touch and pain sensation and no focal motor deficits Cranial nerves: Yes CN's II-XII intact bilaterally and Yes Equal, round and reactive pupils present Cognition (Neuro): normal cognition Extrem General: Yes full ROM, Yes no joint enlargement, Yes no clubbing, cyanosis or edema and Yes no calf tenderness Psych Appearance: grossly normal and well kempt Mental Status: mental status grossly normal Speech and movement: Normal speech and movement present Affect: normal affect Attitude: cooperative Thought process: Normal thought process present Thought content: Normal thought content present Results Reviewed Results Reviewed: Laboratory Tests 10/27/23 08/01/24 08:10 08:05 Estimat Average Glucose 180 Hemoglobin A1c % 7.9 H Urine Creatinine 41.65 Urine Microalbumin 162.0 Microalb/Creat Ratio 388.9 H Name: Carmela Lundberg Age/Sex: 74/F : 1950 Unit#: [id number] Attend Dr: Genie Lynne MD Re08/01/24 Status: DEP REF Location: [facility] Disch: SPEC : [id number] PAPI: 08/01/24 STATUS: COMP REQ : [id number] RECD: 08/01/[address]: Genie Lynne MD COMP: 08/01/24 ENTERED: 08/01/[address]: ORDERED: Met Prof Fast, AST, ALT, Lipid Panel Test Result Flag Reference Sodium 138 135-145 mmol/L Potassium 3.9 3.3-5.1 mmol/L CL 103 96-108 mmol/L CO2 29 22-29 mmol/L Gap 10 L 12-20 BUN 32 H 9-16 mg/dL Creat 1.31 0.5-1.4 mg/dL EGFR 40 NOTE: For -[place] individuals, multiply the result by 1.210. Chronic Kidney Disease: Estimated GFR < 60 mL/min/1.73m2 Severe Kidney Disease: Estimated GFR < 15 mL/min/1.73m2 FBS 143 H 60-99 mg/dL A fasting glucose of 126 mg/dl or greater on more than one occasion is considered diagnostic of diabetes. CA 9.5 8.4-10.2 mg/dL AST (GOT) 20 5-31 U/L ALT (GPT) 15 0-31 U/L Triglyceride 186 H <150 mg/dL Desirable Triglyceride: less than 150 mg/dL Borderline High Triglyceride 150-199 mg/dL High Triglyceride: 200-499 mg/dL Very High Triglyceride: greater than or equal to 5OO mg/dL Cholesterol 144 <200 mg/dL Desirable Cholesterol: less than 200 mg/dL Borderline High Cholesterol: 200-239 mg/dL High Cholesterol: greater than 239 mg/dL LDL Calculated 77 <100 mg/dL Desirable LDL: less than 100 mg/dL Near Optimal/Above Optimal LDL: 110-129 mg/dL Borderline High LDL: 130-159 mg/dL High LDL: 160-189 mg/dL Very High LDL: greater than or equal to 190 mg/dL HDL 30 L >40 mg/dL Desirable HDL: greater than 40 mg/dL Note: This HDL assay may give artificially low results in patients with liver disease. Coding Level of Care Code Est Pt Level 4 (02392) Complex EM visit Add On G2211 Diagnoses Diabetes mellitus with microalbuminuria, without long-term current use of insulin E11.29; R80.9 Mixed dyslipidemia E78.2 Assessment & Plan Assessment & Plan (1) Diabetes mellitus with microalbuminuria, without long-term current use of insulin: Code(s): E11.29 - Type 2 diabetes mellitus with other diabetic kidney complication; R80.9 - Proteinuria, unspecified Category: Medical Plan: Latest hemoglobin A1c at 7.9%. Will continue on pioglitazone 45 mg daily and repaglinide 4 mg 1 tablet 3 times a day with meals. Patient refusing to be on insulin or any injectable. Unable to prescribed Januvia, or any SG LT 2 inhibitor due to the prohibitive cost, not covered by her insurance. Reinforced importance of following recommended diet and getting regular exercise will repeat hemoglobin A1c, urine for microalbuminuria screening in 3 months. Up-to-date with her vaccinations, reminded to get her new yearly flu vaccine which she can get at the pharmacy (2) Mixed dyslipidemia: Code(s): E78.2 - Mixed hyperlipidemia Category: Medical Plan: Recent fasting lipids showed results within normal limits except for elevated triglycerides, likely also due to uncontrolled diabetes. Will continue on atorvastatin 10 mg once a day, in addition to adhering to low-cholesterol diet and regular exercise. Repeat another fasting lipid panel and liver enzymes in 3 months' time. Orders: Orders Hemoglobin A1c 10/28/24 E11.29 - Type 2 diabetes mellitus with other diabetic kidney complication, E78.2 - Mixed hyperlipidemia, I10 - Essential (primary) hypertension, N18.30 - Chronic kidney disease, stage 3 unspecified, R80.9 - Proteinuria, unspecified Lipid Panel 10/28/24 E11.29 - Type 2 diabetes mellitus with other diabetic kidney complication, E78.2 - Mixed hyperlipidemia, I10 - Essential (primary) hypertension, N18.30 - Chronic kidney disease, stage 3 unspecified, R80.9 - Proteinuria, unspecified Aspartate Amino Transferase 10/28/24 E11.29 - Type 2 diabetes mellitus with other diabetic kidney complication, E78.2 - Mixed hyperlipidemia, I10 - Essential (primary) hypertension, N18.30 - Chronic kidney disease, stage 3 unspecified, R80.9 - Proteinuria, unspecified Vitamin D 25-OH Total 10/28/24 E11.29 - Type 2 diabetes mellitus with other diabetic kidney complication, E78.2 - Mixed hyperlipidemia, I10 - Essential (primary) hypertension, N18.30 - Chronic kidney disease, stage 3 unspecified, R80.9 - Proteinuria, unspecified Microalbumin, Random (w Creat) 10/28/24 E11.29 - Type 2 diabetes mellitus with other diabetic kidney complication, E78.2 - Mixed hyperlipidemia, I10 - Essentia l (primary) hypertension, N18.30 - Chronic kidney disease, stage 3 unspecified, R80.9 - Proteinuria, unspecified Basic Metabolic Panel Fasting 10/28/24 E11.29 - Type 2 diabetes mellitus with other diabetic kidney complication, E78.2 - Mixed hyperlipidemia, I10 - Essential (primary) hypertension, N18.30 - Chronic kidney disease, stage 3 unspecified, R80.9 - Proteinuria, unspecified Alanine Aminotransferase 10/28/24 E11.29 - Type 2 diabetes mellitus with other diabetic kidney complication, E78.2 - Mixed hyperlipidemia, I10 - Essential (primary) hypertension, N18.30 - Chronic kidney disease, stage 3 unspecified, R80.9 - Proteinuria, unspecified
== END 2024-08-03 13:21 | disposition home or self-care (01) ==
LOC: HO.HMCC 11:10
PROVIDERS: PCP Internal Medicine; Visit Provider Internal Medicine
DX: E11.29 Type 2 diabetes mellitus with other diabetic kidney complication (principal); R80.9 Proteinuria, unspecified; E78.2 Mixed hyperlipidemia

== ENCOUNTER → 2024-08-03 11:09 | Outpatient (BNVA) | payer MEDICARE, SELFPAY | PROVIDERS: PCP Internal Medicine; Visit Provider Internal Medicine | DX: E11.29 Type 2 diabetes mellitus with other diabetic kidney complication (principal); E78.2 Mixed hyperlipidemia; R80.9 Proteinuria, unspecified | CPT/HCPCS: 99212 ==

== ENCOUNTER 2024-08-07 10:05 | Outpatient (AMB) | payer MEDICARE, SELFPAY ==
[2024-08-07 10:24] VITALS: BP 160/50; PULSE 76; O2SAT 95; BMI 29.6
--- NOTE | 2024-08-07 10:24 | HO.NEPHOV ---
Vital Signs 08/07/24 10:24 Height 5 ft 3 in Weight 167 lb BMI 29.6 BP 160/50 H Blood Pressure Location Lt brachial Position Sitting Pulse 76 Pulse Source Pulse Oximeter Pulse Oximetry (%) 95 Oxygen Delivery Method Room Air Intake Visit Reasons: CKD/ Conf Community Health Worker Required: No Accompanied by: Self / Same As Patient Allergies No Known Allergies Allergy (Verified 08/07/24 10:26) Medication List - Last Reconciled 08/07/24 by Ranjan Irvin MD atorvastatin 10 mg PO DAILY blood sugar diagnostic (FreeStyle Lite Strips) USE TO TEST DIRECTED ONCE DAILY (E11.9) brimonidine 0.2% 1 drp ophthalmic (eye) BID digoxin 250 mcg PO DAILY diltiazem HCl CD 300 mg PO DAILY hydralazine 75 mg (3 x 25 mg) PO TID hydrochlorothiazide 25 mg PO DAILY lancets As directed multivitamin 1 tab PO DAILY omega-3 fatty acids 1,200 mg PO BID pioglitazone 45 mg PO DAILY repaglinide 4 mg (2 x 2 mg) PO TID 90 days warfarin 5 mg See Protocol PO DAILY HPI Comments Details: And is a pleasant 73-year-old woman with a history of hypertension diabetes has been obesity. She was stage III CKD. Recent creatinine is around 1.17 mg/dL She is here for further follow up urine CKD. She continues to have some shortness of breath on exertion however did this improves with some fluid intake. No significant edema no urinary symptoms. 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, without long-term current use of insulin Colonoscopy refused Hyperkalemia Paroxysmal atrial fibrillation Mixed dyslipidemia Essential hypertension Diabetes mellitus with microalbuminuria, without long-term current use of insulin Surgical History History of placement of ear tubes Hx of cholecystectomy Family History Father Unknown family medical history Mother Unknown family medical history Son Mental health disorder Social History Housing: House Alcohol intake: never Patient Tobacco Use Status: Never used Tobacco e-Cigarette/Vaping Use: Never Used service: No Current occupational status: retired Cognitive needs: No Hearing needs: No Vision needs: No Physical Exam Vital Signs: Last Vital Signs Pulse 76 08/07/24 10:24 BP 160/50 H 08/07/24 10:24 Pulse Ox 95 08/07/24 10:24 Oxygen Delivery Method Room Air 08/07/24 10:24 BMI result Body Mass Index 29.6 Results Reviewed Nephrology Results: Sodium 138 mmol/L (135-145) 08/01/24 Potassium 3.9 mmol/L (3.3-5.1) 08/01/24 Chloride 103 mmol/L (96-108) 08/01/24 Carbon Dioxide 29 mmol/L (22-29) 08/01/24 BUN 32 mg/dL (9-16) H 08/01/24 Creatinine 1.31 mg/dL (0.5-1.4) 08/01/24 Calcium 9.5 mg/dL (8.4-10.2) 08/01/24 Assessment & Plan Assessment & Plan (1) CKD (chronic kidney disease) stage 3, GFR 30-59 ml/min: Comment: Followed by Dr. Irvin Code(s): N18.30 - Chronic kidney disease, stage 3 unspecified Category: Medical (2) Essential hypertension: Code(s): I10 - Essential (primary) hypertension Category: Medical (3) Diabetes mellitus with microalbuminuria, without long-term current use of insulin: Code(s): E11.29 - Type 2 diabetes mellitus with other diabetic kidney complication; R80.9 - Proteinuria, unspecified Category: Medical Plan . Lupe is a pleasant 72-year-old man with a history of longstanding hypertension diabetes mellitus with CKD. Renal function is close to baseline. Clinically she is euvolemic. Blood pressure is suboptimal. Increased hydralazine to 100 mg 3 times a day. ( does not want a new eRx for 100 mg tabs until she completes the 25 mg tabs) Will need a new eRx in 2 months Encouraged her to stay on low-sodium diet. DM OK to use Metformin eGFR is about 46 ml/mt If eGFR is < 30 ml/mt, would avoid MEtformin . Orders: Orders Parathyroid Hormone Intact 4 Months N18.30 - Chronic kidney disease, stage 3 unspecified Phosphorus 4 Months N18.30 - Chronic kidney disease, stage 3 unspecified Basic Metabolic Panel 4 Months N18.30 - Chronic kidney disease, stage 3 unspecified Complete Blood Count no Diff 4 Months N18.30 - Chronic kidney disease, stage 3 unspecified Coding Level of Care Code Est Pt Level 4 (52971) Diagnoses CKD (chronic kidney disease) stage 3, GFR 30-59 ml/min N18.30 Essential hypertension I10 Diabetes mellitus with microalbuminuria, without long-term current use of insulin E11.29; R80.9
== END 2024-08-07 10:41 | disposition home or self-care (01) ==
PROVIDERS: PCP Internal Medicine; Visit Provider Internal Medicine Hypertension Specialist
DX: I12.9 Hypertensive chronic kidney disease with stage 1 through stage 4 chronic kidney disease, or unspecified chronic kidney disease (principal); E11.22 Type 2 diabetes mellitus with diabetic chronic kidney disease; N18.30 Chronic kidney disease, stage 3 unspecified; R80.9 Proteinuria, unspecified
CPT/HCPCS: 99214

== ENCOUNTER → 2024-08-07 10:05 | Outpatient (BNVA) | payer MEDICARE, SELFPAY | PROVIDERS: PCP Internal Medicine; Visit Provider Internal Medicine Hypertension Specialist | DX: E11.29 Type 2 diabetes mellitus with other diabetic kidney complication (principal); E11.319 Type 2 diabetes mellitus with unspecified diabetic retinopathy without macular edema; I12.9 Hypertensive chronic kidney disease with stage 1 through stage 4 chronic kidney disease, or unspecified chronic kidney disease; R80.9 Proteinuria, unspecified; N18.30 Chronic kidney disease, stage 3 unspecified | CPT/HCPCS: 99212 ==

== ENCOUNTER 2024-08-16 09:31 | Outpatient (AMB) | payer MEDICARE, SELFPAY ==
--- NOTE | 2024-08-16 09:58 | MHC.OFFVISCO ---
Intake Intake Visit Reasons: Anticoagulation Allergies No Known Allergies Allergy (Verified 08/16/24 09:52) Medication List - Last Reconciled 08/16/24 by Nicole Otto RN atorvastatin 10 mg PO DAILY blood sugar diagnostic (FreeStyle Lite Strips) USE TO TEST DIRECTED ONCE DAILY (E11.9) brimonidine 0.2% 1 drp ophthalmic (eye) BID digoxin 250 mcg PO DAILY diltiazem HCl CD 300 mg PO DAILY hydralazine 75 mg (3 x 25 mg) PO TID hydrochlorothiazide 25 mg PO DAILY lancets As directed multivitamin 1 tab PO DAILY omega-3 fatty acids 1,200 mg PO BID pioglitazone 45 mg PO DAILY repaglinide 4 mg (2 x 2 mg) PO TID 90 days warfarin 5 mg See Protocol PO DAILY Nursing Note INR: 2.8- in therapeutic range of 2-3 Medications and supplements reviewed- no changes No changes in health, diet, medications, or supplements, Denies any signs and symptoms of bleeding or bruising or clotting. Bleeding, bruising, clotting discussed Nutritional guidance given Dose: 5mg x 6, 2.5mg x 1 F/U INR: 4 weeks Patient verbalizes understanding of instructions given pt sclera reddened left eye- pt states has glaucoma and uses drops including saline drops Anti-Coag Initial Assessment Social Hx Patient Tobacco Use Status: Never used Tobacco alcohol intake: never Coding Level of Care Code Est Patient Level 1 Diagnoses Current use of anticoagulant therapy Z79.01 Results AMB INR Fingerstick AMB INR Fingerstick 2.8 Last Edit by Nicole Otto RN on 08/16/24 10:02 interface delay Assessment & Plan Assessment & Plan (1) Current use of anticoagulant therapy: Code(s): Z79.01 - termite exterminator helper (current) use of anticoagulants Category: Medical
[2024-08-17 09:30] LABS: Prothrombin Time Whole Bld POC 33.7 sec (11.1-13.5); ~PT, ~INR - Anti Coag Clinic 2.8 (0.9-1.1)
== END 2024-08-16 10:23 | disposition home or self-care (01) ==
LOC: HO.ACS 09:31
PROVIDERS: PCP Internal Medicine; Visit Provider Internal Medicine
DX: Z79.01 Long term (current) use of anticoagulants (principal)

== ENCOUNTER → 2024-08-16 09:31 | Outpatient (BNVA) | payer MEDICARE, SELFPAY | PROVIDERS: PCP Internal Medicine; Visit Provider Internal Medicine | DX: I48.20 Chronic atrial fibrillation, unspecified (principal); Z79.01 Long term (current) use of anticoagulants; Z51.81 Encounter for therapeutic drug level monitoring | CPT/HCPCS: 85610; 99211 ==

== ENCOUNTER 2024-09-13 09:52 | Outpatient (AMB) | payer MEDICARE, SELFPAY ==
--- NOTE | 2024-09-13 10:07 | MHC.OFFVISCO ---
Intake Intake Visit Reasons: Anticoagulation Allergies No Known Allergies Allergy (Verified 09/13/24 10:03) Medication List - Last Reconciled 09/13/24 by Nicole Otto RN atorvastatin 10 mg PO DAILY blood sugar diagnostic (FreeStyle Lite Strips) USE TO TEST DIRECTED ONCE DAILY (E11.9) brimonidine 0.2% 1 drp ophthalmic (eye) BID digoxin 250 mcg PO DAILY diltiazem HCl CD 300 mg PO DAILY hydralazine 75 mg (3 x 25 mg) PO TID hydrochlorothiazide 25 mg PO DAILY lancets As directed multivitamin 1 tab PO DAILY omega-3 fatty acids 1,200 mg PO BID pioglitazone 45 mg PO DAILY repaglinide 4 mg (2 x 2 mg) PO TID 90 days warfarin 5 mg See Protocol PO DAILY Nursing Note INR: 2.4- in therapeutic range of 2-3 Medications and supplements reviewed No changes in health, diet, medications, or supplements, Denies any signs and symptoms of bleeding or bruising or clotting. Bleeding, bruising, clotting discussed Nutritional guidance given - somewhat decreased appetite Dose: 5mg x 6, 2.5mg x 1 F/U INR: 4 weeks Patient verbalizes understanding of instructions given Anti-Coag Initial Assessment Social Hx Patient Tobacco Use Status: Never used Tobacco alcohol intake: never Coding Level of Care Code Est Patient Level 1 Diagnoses Current use of anticoagulant therapy Z79.01 Results AMB INR Fingerstick AMB INR Fingerstick 2.4 Last Edit by Nicole Otto RN on 09/13/24 10:09 interface delay Assessment & Plan Assessment & Plan (1) Current use of anticoagulant therapy: Code(s): Z79.01 - terminal make up operator (current) use of anticoagulants Category: Medical
[2024-09-13 10:57] LABS: Prothrombin Time Whole Bld POC 28.8 sec (11.1-13.5); ~PT, ~INR - Anti Coag Clinic 2.4 (0.9-1.1)
== END 2024-09-13 10:13 | disposition home or self-care (01) ==
LOC: HO.ACS 09:52
PROVIDERS: PCP Internal Medicine; Visit Provider Internal Medicine
DX: Z79.01 Long term (current) use of anticoagulants (principal)

== ENCOUNTER → 2024-09-13 09:52 | Outpatient (BNVA) | payer MEDICARE, SELFPAY | PROVIDERS: PCP Internal Medicine; Visit Provider Internal Medicine | DX: I48.20 Chronic atrial fibrillation, unspecified (principal); Z79.01 Long term (current) use of anticoagulants; Z51.81 Encounter for therapeutic drug level monitoring | CPT/HCPCS: 85610; 99211 ==

== ENCOUNTER 2024-10-11 10:20 | Outpatient (AMB) | payer MEDICARE, MEDICAID, SELFPAY ==
[2024-10-11 10:25] LABS: Prothrombin Time Whole Bld POC 34.6 sec (11.1-13.5); ~PT, ~INR - Anti Coag Clinic 2.9 (0.9-1.1)
--- NOTE | 2024-10-11 10:38 | MHC.OFFVISCO ---
Intake Intake Visit Reasons: Anticoagulation Allergies No Known Allergies Allergy (Verified 10/11/24 10:20) Medication List - Last Reconciled 10/11/24 by Luisa Robbins RN atorvastatin 10 mg PO DAILY blood sugar diagnostic (FreeStyle Lite Strips) USE TO TEST DIRECTED ONCE DAILY (E11.9) brimonidine 0.2% 1 drp ophthalmic (eye) BID digoxin 250 mcg PO DAILY diltiazem HCl CD 300 mg PO DAILY hydralazine 75 mg (3 x 25 mg) PO TID hydrochlorothiazide 25 mg PO DAILY lancets As directed multivitamin 1 tab PO DAILY omega-3 fatty acids 1,200 mg PO BID pioglitazone 45 mg PO DAILY repaglinide 4 mg (2 x 2 mg) PO TID 90 days warfarin 5 mg See Protocol PO DAILY Nursing Note NO CP,SOB,DIET/MED CHANGES,FALLS OR SX OF BLEEDING. CONTIJNUE PRESENT DOSE AND FOLLOW-UP IN 4 WEEKS. GOOD UNDERSTANDING OF DOSING INSTR. Anti-Coag Initial Assessment Social Hx Patient Tobacco Use Status: Never used Tobacco alcohol intake: never Coding Level of Care Code Est Patient Level 1 Diagnoses Current use of anticoagulant therapy Z79.01 Assessment & Plan Assessment & Plan (1) Current use of anticoagulant therapy: Code(s): Z79.01 - intermodal owner operator truck driver (current) use of anticoagulants Category: Medical
== END 2024-10-11 10:41 | disposition home or self-care (01) ==
LOC: HO.ACS 10:20
PROVIDERS: PCP Internal Medicine; Visit Provider Internal Medicine
DX: Z79.01 Long term (current) use of anticoagulants (principal)

== ENCOUNTER → 2024-10-11 10:20 | Outpatient (BNVA) | payer MEDICARE, MEDICAID, SELFPAY | PROVIDERS: PCP Internal Medicine; Visit Provider Internal Medicine | DX: I48.20 Chronic atrial fibrillation, unspecified (principal); Z79.01 Long term (current) use of anticoagulants; Z51.81 Encounter for therapeutic drug level monitoring | CPT/HCPCS: 85610; 99211 ==

== ENCOUNTER 2024-11-08 11:04 | Outpatient (AMB) | payer MEDICARE, MEDICAID, SELFPAY ==
--- NOTE | 2024-11-08 11:39 | MHC.OFFVISCO ---
Intake Intake Visit Reasons: Anticoagulation Allergies No Known Allergies Allergy (Verified 11/08/24 11:34) Medication List - Last Reconciled 11/08/24 by Nicole Otto RN atorvastatin 10 mg PO DAILY blood sugar diagnostic (FreeStyle Lite Strips) USE TO TEST DIRECTED ONCE DAILY (E11.9) brimonidine 0.2% 1 drp ophthalmic (eye) BID digoxin 250 mcg PO DAILY diltiazem HCl CD 300 mg PO DAILY hydralazine 75 mg (3 x 25 mg) PO TID hydrochlorothiazide 25 mg PO DAILY lancets As directed multivitamin 1 tab PO DAILY omega-3 fatty acids 1,200 mg PO BID pioglitazone 45 mg PO DAILY repaglinide 4 mg (2 x 2 mg) PO TID 90 days warfarin 5 mg See Protocol PO DAILY Nursing Note INR 3.5-?? out of therapeutic range of 2-3 Medications and supplements reviewed Patient status: c.o stress Medications or supplements: no changes Diet: same Denies any signs and symptoms of bleeding or clotting or unusual bruising Bleeding, bruising, clotting discussed Nutritional guidance given: eat greens today and tomm Dose: reduce dose today to 2.5mg then cont reg dosing, 5mg x 6, 2.5mg x 1 F/U INR Date : 2 weeks Patient verbalizing understanding of instructions given. Anti-Coag Initial Assessment Social Hx Patient Tobacco Use Status: Never used Tobacco alcohol intake: never Coding Level of Care Code Est Patient Level 1 Diagnoses Current use of anticoagulant therapy Z79.01 Assessment & Plan Assessment & Plan (1) Current use of anticoagulant therapy: Code(s): Z79.01 - terminal operations supervisor (current) use of anticoagulants Category: Medical
[2024-11-08 11:40] LABS: ~PT, ~INR - Anti Coag Clinic 3.5 (0.9-1.1)
--- OUTSIDE RECORDS SUMMARY | 2024-11-08 12:54 | XMS_ITS | Encounter Summary ---
Author Organization [facility] Address [address] [place] [address] Phone Care Team Providers Care Nutrition Club Ambassador Name Role Phone Dominik Albert MD Primary Care Provider Encounter Details Date Type Department Care Team (Late st Contact Info) Description 06/30/2022 Telephone [facility] [address] [place] [address] Mony Donovan Social History Tobacco Use Types Packs/Day Years Used Date Smoking Tobacco: Never Smokeless Tobacco: Never Alcohol Use Standard Drinks/Week Comments Never 0 (1 standard drink = 0.6 oz pur e alcohol) Comments Unknown Sex and Gender Information Value Date Recorded Sex Assigned at Not on file Legal Sex Female 1:40 PM EDT Gender Identity Not on file Sexual Orientation Not on file documented as of this encounter Miscellaneous Notes * Telephone Encounter - Perlita Longoria - 07/01/2022 10:01 AM EDT Pt Advised * Telephone Encounter - Perlita Longoria - 07/01/2022 10:01 AM EDT Pt Advised * Telephone Encounter - Mony Donovan - 06/30/2022 1:10 PM EDT Patient was in yesterday and wants to know what CKD Stage 3B means please call her at [phone] documented in this encounter Plan of Treatment Not on file documented as of this encounter Visit Diagnoses Not on filedocumented in this encounter Care Teams Nutrition Club Ambassador Relationship Specialty Start Date End Date Dominik Albert MD PCP - General Nephrology 12/27/23 documented as of this encounter
--- OUTSIDE RECORDS SUMMARY | 2024-11-08 12:54 | XMS_ITS | Clinical Summary ---
Author Organization [facility] Address [address] [place] [address] Phone Care Team Providers Care Broke Beater Machine Operator Name Role Phone Dominik Albert MD Primary Care Provider [phone] Allergies No known active allergies Medications atorvastatin (LIPITOR) 10 MG tablet Take 10 mg by mouth 1 (one) time each day 01/23/2022 Active brimonidine (ALPHAGAN) 0.2 % ophthalmic solution INSTILL 1 DROP IN LEFT EYE TWICE A DAY (TWELVE HOURS APART) 02/11/2022 Active digoxin (LANOXIN) 250 MCG tablet TAKE 1 TABLET BY MOUTH ONCE DAILY X90 DAYS 02/03/2022 Active hydroCHLOROthiaz jessie 25 MG tablet Take 25 mg by mouth 1 (one) time each day in the morning 02/26/2022 Active pioglitazone (ACTOS) 30 MG tablet Take 30 mg by mouth 1 (one) time each day 02/05/2022 Active warfarin (COUMADIN) 5 MG tablet Take 5 mg by mouth 01/17/2022 Active hydrALAZINE 50 MG tablet Take 50 mg by mouth in the morning and 50 mg in the evening and 50 mg before bedtime. Active repaglinide (PRANDIN) 2 MG tablet Take 2 mg by mouth in the morning and 2 mg at noon and 2 mg in the evening. Take before meals. Active dilTIAZem CD (CARDIZEM CD) 300 MG 24 hr capsule Take 1 capsule (300 mg total) by mouth 1 (one) time each day 90 capsule 3 03/01/2023 Active omega-3 acid ethyl esters (LOVAZA) 1 g capsule Take 360 mg by mouth 1 (one) time each day Active Multiple Vitamin (multivitamin) capsule Take 1 capsule by mouth 1 (one) time each day Active Dapagliflozin Propanediol (Farxiga) 10 MG tablet Take 10 mg by mouth 1 (one) time each day 90 tablet 2 12/27/2023 Active Active Problems Problem Noted Date Diagnosed Date Stage 3b chronic kidney disease 12/27/2023 Type 2 diabetes mellitus wit h diabetic chronic kidney disease 12/27/2023 Hyperkalemia 03/04/2022 Essential (primary) hypertension 03/04/2022 Hyperlipidemia 03/04/2022 Proteinuria 03/04/2022 Atrial fibrillation 04/20/2012 Type 2 diabetes mellitus 04/20/2012 Resolved Problems Problem Noted Date Diagnosed Date Resolved Date Type 1 diabetes mellitus wit h other diabetic kidney complication 03/04/2022 03/05/2022 Family History Medical History Relation Comments No Known Problems Father unknown No Known Problems Mother Relation Status Comments Father Mother Social History Tobacco Use Types Packs/Day Years Used Date Smoking Tobacco: Never Smokeless Tobacco: Never Tobacco Cessation:Counseling Given: Not Answered Alcohol Use Standard Drinks/Week Comments Never 0 (1 standard drink = 0.6 oz pur e alcohol) Comments Unknown Sex and Gender Information Value Date Recorded Sex Assigned at Not on file Legal Sex Female 1:40 PM EDT Gender Identity Not on file Sexual Orientation Not on file Last Filed Vital Signs Vital Sign Reading Time Taken Comments Blood Pressure 144/62 12/27/2023 2:11 PM EDT Pulse 64 12/27/2023 2:11 PM EDT Temperature - - Respiratory Rate - - Oxygen Saturation 98% 12/27/2023 2:11 PM EDT Inhaled Oxygen Concentration - - Weight 76.7 kg (169 lb 3.2 oz) 12/27/2023 2:11 P M EDT Height 157.5 cm (5' 2 ) 06/14/2023 12:48 PM EDT Body Mass Index 30.95 06/14/2023 12:48 PM EDT Plan of Treatment Health Maintenance Due Date Last Done Comments Breast Cancer Screening 1950 Pneumococcal Vaccine: 65+ Ye ars (1 of 2 - PCV) 1956 Colorectal Cancer Screening: Annual FOBT 1998 Colorectal Cancer Screening: Colonoscopy 1998 Colorectal Cancer Screening: Sigmoidoscopy 1998 Diabetes: Ophthalmology Exam 03/04/2022 Diabetes: Pedal Pulse Checked 03/04/2022 Diabetes: Sensory Foot Exam 03/04/2022 Diabetes: Visual Foot Exam 03/04/2022 Diabetes: Hemoglobin A1C 10/23/2023 07/23/2023 Influenza Vaccine (#1) 2024 Hepatitis B Vaccine Aged Out No longe r eligible based on patient's age to complete this topic Procedures Procedure Name Priority Date/Time Associated Diagnosis Comments EXT RESULT ENTRY Routine 07/23/2023 from Last 3 Months or Most Recently Relevant to Health Maintenance Results * (ABNORMAL) EXT RESULT ENTRY (07/23/2023) Sodium 141 137 - 147 Potassium 4.2 3.4 - 5.5 Chloride 105.0 99.0 - 108.0 Anion Gap 16 <=30 MMOL/L BUN 22(A) 4 - 21 mg/dL Creatinine 1.16(A) 0.50 - 1.10 mg/dL Calcium 9.6 8.7 - 10.7 mg/dL Hemoglobin A1C 8.4(A) 4.0 - 6.0 07/23/2023 [facility] Provider LAB BLOOD ORDERABLES Elysia l Result from Last 3 Months or Most Recently Relevant to Health Maintenance Insurance [id number] [place] [address] MEDICARE [facility] MEDICARE [facility] Care Teams Broke Beater Machine Operator Relationship Specialty Start Date End Date Dominik Albert MD PCP - General Nephrology 12/27/23
== END 2024-11-08 11:50 | disposition home or self-care (01) ==
LOC: HO.ACS 11:04
PROVIDERS: PCP Internal Medicine; Visit Provider Internal Medicine
DX: Z79.01 Long term (current) use of anticoagulants (principal)

== ENCOUNTER → 2024-11-08 11:04 | Outpatient (BNVA) | payer MEDICARE, MEDICAID, SELFPAY | PROVIDERS: PCP Internal Medicine; Visit Provider Internal Medicine | DX: I48.20 Chronic atrial fibrillation, unspecified (principal); Z79.01 Long term (current) use of anticoagulants; Z51.81 Encounter for therapeutic drug level monitoring | CPT/HCPCS: 85610; 99211 ==

== ENCOUNTER 2024-11-22 10:29 | Outpatient (AMB) | payer MEDICARE, MEDICAID, SELFPAY ==
[2024-11-22 10:42] LABS: Prothrombin Time Whole Bld POC 36.6 sec (11.1-13.5)
--- NOTE | 2024-11-22 10:51 | MHC.OFFVISCO ---
Intake Intake Visit Reasons: Anticoagulation Allergies No Known Allergies Allergy (Verified 11/22/24 10:37) Medication List - Last Reconciled 11/22/24 by Luisa Robbins RN atorvastatin 10 mg PO DAILY blood sugar diagnostic (FreeStyle Lite Strips) USE TO TEST DIRECTED ONCE DAILY (E11.9) brimonidine 0.2% 1 drp ophthalmic (eye) BID digoxin 250 mcg PO DAILY diltiazem HCl CD 300 mg PO DAILY hydralazine 75 mg (3 x 25 mg) PO TID hydrochlorothiazide 25 mg PO DAILY lancets As directed multivitamin 1 tab PO DAILY omega-3 fatty acids 1,200 mg PO BID pioglitazone 45 mg PO DAILY repaglinide 4 mg (2 x 2 mg) PO TID 90 days warfarin 5 mg See Protocol PO DAILY Nursing Note NO CP,SOB,DIET/MED CHANGES,FALLS OR SX OF BLEEDING. CONTINUE PRESENT DOSE AND FOLLOW-UP IN 4 WEEKS. GOOD UNDERSTANDING OF DOSING INSTR. Anti-Coag Initial Assessment Social Hx Patient Tobacco Use Status: Never used Tobacco alcohol intake: never Coding Level of Care Code Est Patient Level 1 Diagnoses Current use of anticoagulant therapy Z79.01 Results AMB INR Fingerstick AMB INR Fingerstick 3.0 Last Edit by Luisa Rbobins RN on 11/22/24 10:44 Assessment & Plan Assessment & Plan (1) Current use of anticoagulant therapy: Code(s): Z79.01 - residential (current) use of anticoagulants Category: Medical
--- OUTSIDE RECORDS SUMMARY | 2024-11-22 12:54 | XMS_ITS | Encounter Summary ---
Author Organization [facility] Address [address] [place] [address] Phone Care Team Providers Care Ui Engineer Name Role Phone Dominik Albert MD Primary Care Provider Encounter Details Date Type Department Care Team (Late st Contact Info) Description 06/30/2022 Telephone [facility] [address] [place] [address] Mony Donovan Social History Tobacco [...] Stage 3B means please call her at [phone] documented in this encounter Plan of Treatment Not on file documented as of this encounter Visit Diagnoses Not on filedocumented in this encounter Care Teams Ui Engineer Relationship Specialty Start Date End Date Dominik Albert MD PCP - General Nephrology 12/27/23 documented as of this encounter
--- OUTSIDE RECORDS SUMMARY | 2024-11-22 12:54 | XMS_ITS | Clinical Summary ---
Author Organization [facility] Address [address] [place] [address] Phone Care Team Providers Care Records Management Engineer Name Role Phone Dominik Albert MD Primary Care Provider [phone] Allergies No known active allergies Medications atorvastatin [...] Hemoglobin A1C 8.4(A) 4.0 - 6.0 07/23/2023 [place] [facility] Provider LAB BLOOD ORDERABLES Elysia l Result from Last 3 Months or Most Recently Relevant to Health Maintenance [address] [place] [address] MEDICARE [facility]ICARE [facility] Care Teams Records Management Engineer Relationship Specialty Start Date End Date Dominik Albert MD PCP - General Nephrology 12/27/23
== END 2024-11-22 10:53 | disposition home or self-care (01) ==
LOC: HO.ACS 10:29
PROVIDERS: PCP Internal Medicine; Visit Provider Internal Medicine
DX: Z79.01 Long term (current) use of anticoagulants (principal)

== ENCOUNTER → 2024-11-22 10:29 | Outpatient (BNVA) | payer MEDICARE, MEDICAID, SELFPAY | PROVIDERS: PCP Internal Medicine; Visit Provider Internal Medicine | DX: I48.20 Chronic atrial fibrillation, unspecified (principal); Z79.01 Long term (current) use of anticoagulants; Z51.81 Encounter for therapeutic drug level monitoring | CPT/HCPCS: 85610; 99211 ==

== ENCOUNTER 2024-11-27 08:51 | Outpatient (REF) | payer MEDICARE, MEDICAID, SELFPAY ==
--- OUTSIDE RECORDS SUMMARY | 2024-11-27 09:27 | XMS_ITS | Encounter Summary ---
Author Organization [facility] Address [address] [address] [address] [place] [address] Phone Care Team Providers Care Survey Project Manager Name Role Phone Domiink Albert MD Primary Care Provider [phone] Encounter Details Date Type Department Care Team (Late st Contact Info) Description 06/30/2022 Telephone [facility] [address] [place] [address] Mony Donovan Social History Tobacco [...] Stage 3B means please call her at [phone] documented in this encounter Plan of Treatment Not on file documented as of this encounter Visit Diagnoses Not on filedocumented in this encounter Care Teams Survey Project Manager Relationship Specialty Start Date End Date Dominik Albert MD PCP - General Nephrology 12/27/23 documented as of this encounter
--- OUTSIDE RECORDS SUMMARY | 2024-11-27 09:27 | XMS_ITS | Clinical Summary ---
Author Organization [facility] Address [address] [place] [address] Phone Care Team Providers Care Regional Airline Pilot Name Role Phone Dominik Albert MD Primary Care Provider [phone] Allergies No known active allergies Medications atorvastatin [...] Hemoglobin A1C 8.4(A) 4.0 - 6.0 07/23/2023 [facility] Provider LAB BLOOD ORDERABLES Elysia l Result from Last 3 Months or Most Recently Relevant to Health Maintenance [address] [place] [address] MEDICARE [facility] MEDICARE [facility] Care Teams Regional Airline Pilot Relationship Specialty Start Date End Date Dominik Albert MD PCP - General Nephrology 12/27/23
[2024-11-27 10:26] LABS: Hematocrit 34.7 % (37.0-47.0); Mean Corpuscular HGB Conc 31.7 g/dl (31.0-35.0); Mean Corpuscular Hemoglobin 28.2 pg (27.0-33.0); Mean Platelet Volume 11.8 fL (9.4-12.3); Platelet Count 237 X10*3/uL (160-400); Red Cell Distribution Width 15.6 % (11.0-16.0); White Blood Count 6.5 X10*3/uL (4.8-10.8)
[2024-11-27 11:13] LABS: Alanine Aminotransferase 10 U/L (0-31); Anion Gap 13 (12-20); Aspartate Amino Transferase 22 U/L (5-31); Blood Urea Nitrogen 36 mg/dL (9-16); Calcium 9.4 mg/dL (8.4-10.2); Carbon Dioxide 25 mmol/L (22-29); Chloride 105 mmol/L (96-108); Cholesterol 140 mg/dL (<200); Estimated Glomerular Filt Rate 43; Glucose Fasting 130 mg/dL (60-99); HDL Cholesterol 30 mg/dL (>40); LDL Cholesterol Calculated 74 mg/dL (<100); Phosphorus 3.2 mg/dL (2.7-4.5); Potassium 3.6 mmol/L (3.3-5.1); Sodium 139 mmol/L (135-145); Triglycerides 180 mg/dL (<150)
[2024-11-27 11:19] LABS: Parathyroid Hormone Intact 48.7 pg/mL (8.7-77.1)
[2024-11-27 11:36] LABS: Vitamin D 25-OH Total 38.5 ng/mL (>30)
[2024-11-27 12:09] LABS: Creatinine Urine 54.81 mg/dL; Microalbum/Creatinine Ratio Ur 744.3 ug/mg cr (<30)
== END 2024-11-27 08:52 | disposition home or self-care (01) ==
LOC: HO.HMGCLDS 08:51
PROVIDERS: Internal Medicine Hypertension Specialist; PCP Internal Medicine; Visit Provider Internal Medicine
DX: N18.30 Chronic kidney disease, stage 3 unspecified (principal); E78.2 Mixed hyperlipidemia; I10 Essential (primary) hypertension; E11.29 Type 2 diabetes mellitus with other diabetic kidney complication; R80.9 Proteinuria, unspecified
CPT/HCPCS: 36415; 80048; 80061; 82043; 82306; 82570; 83970; 84100; 84450; 84460; 85027

== ENCOUNTER 2024-11-29 11:23 | Outpatient (AMB) | payer MEDICARE, MEDICAID, SELFPAY ==
[2024-11-29 11:32] VITALS: BP 138/62; PULSE 74; RESP 15; TEMP 36.6; O2SAT 96; BMI 29.4
--- NOTE | 2024-11-29 11:32 | A.OFFPC_ITS ---
Vital Signs 11/29/24 11:32 Height 5 ft 3 in Weight 166 lb BMI 29.4 BP 138/62 Blood Pressure Location Rt brachial Position Sitting Respiration 15 Pulse 74 Pulse Source Pulse Oximeter Temp 97.9 F Temp Source Oral Pulse Oximetry (%) 96 Oxygen Delivery Method Room Air Intake Visit Reasons: 3m f/u dm lipids Intake Note: Pt is here today for her 3mo. f/u lipids Allergies No Known Allergies Allergy (Verified 11/29/24 12:15) Medication List - Last Reconciled 11/29/24 by Genie Lynne MD atorvastatin 10 mg PO DAILY blood sugar diagnostic (FreeStyle Lite Strips) USE TO TEST DIRECTED ONCE DAILY (E11.9) brimonidine 0.2% 1 drp ophthalmic (eye) BID digoxin 250 mcg PO DAILY diltiazem HCl CD 300 mg PO DAILY hydralazine 75 mg (3 x 25 mg) PO TID hydrochlorothiazide 25 mg PO DAILY lancets As directed multivitamin 1 tab PO DAILY omega-3 fatty acids 1,200 mg PO BID pioglitazone 45 mg PO DAILY repaglinide 4 mg (2 x 2 mg) PO TID 90 days warfarin 5 mg See Protocol PO DAILY Tobacco use date assessed: 11/29/24 Fall risk assessment: No Falls in past year Last assessed Fall Risk: 11/29/24 Dental Screening Dental Screen Date: 11/29/24 Did you have a dental visit in the last 12 months?: No Did you have a dental problem in the last 6 months where you did not have access to dental care?: No Was dental information given to patient?: No HPI 3m f/u dm lipids HPI Details 74 year-old lady here today for follow-u p on her diabetes mellitus and hyperlipidemia. She is currently taking pioglitazone , now at 45 mg once a day and repaglinide 2 mg/tablet , 2 tablet 3 times a day with meals for diabetes control. She states that she has been taking her pioglitazone regularly but sometimes misses her repaglinide dose especially when she does not eat 3 meals a day. She currently atorvastatin 10 mg once a day and [place] 3 fatty acid supplements 1200 mg twice a day for her hypercholesterolemia. 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, without long-term current use of insulin Colonoscopy refused Hyperkalemia Paroxysmal atrial fibrillation Mixed dyslipidemia Essential hypertension Diabetes mellitus with microalbuminuria, without long-term current use of insulin Surgical History History of placement of ear tubes Hx of cholecystectomy Family History Father Unknown family medical history Mother Unknown family medical history Son Mental health disorder Social History Housing: House Alcohol intake: never Patient Tobacco Use Status: Never used Tobacco e-Cigarette/Vaping Use: Never Used service: No Current occupational status: retired Cognitive needs: No Hearing needs: No Vision needs: No Questionnaire Thrive Questionnaire Date Thrive assessed: 11/29/24 EDE-7 AMB Questionnaire EDE-7 Date EDE - 7 assessed: 05/02/24 Source: Developed by Drs. Jeremy Fletcher, Светлана Bess, Garcia Gasca and colleagues, with an educational martir from [employer]. Physical exam (Primary Care) Vital Signs: Last Vital Signs Temp 97.9 F 11/29/24 11:32 Pulse 74 11/29/24 11:32 Resp 15 11/29/24 11:32 BP 138/62 11/29/24 11:32 Pulse Ox 96 11/29/24 11:32 Oxygen Delivery Method Room Air 11/29/24 11:32 BMI result Body Mass Index 29.4 Tobacco/Smoking Status: Tobacco use Status Tobacco use date assessed 11/29/24 11/29/24 11:35 Patient Tobacco Use Status Never used Tobacco 11/29/24 11:35 e-Cigarette/Vaping Use Never Used 11/29/24 11:35 Thrive Assessment: Date of Thrive Assessment Date Thrive assessed 11/29/24 11/29/24 11:35 Results AMB Hemoglobin A1c AMB Hemoglobin A1c 8.0 % Last Edit by Paloma Slater CMA on 11/29/24 12:19 Results Reviewed Results Reviewed: Laboratory Last Values Hgb A1c (Clinic) 8.0 % (4.0-6.0) H 11/29/24 12:12 Name: Carmela Lundberg Age/Sex: 74/F : 1950 Unit#: [id number] Attend Dr: Genie Lynne MD Re11/27/24 Status: DEP [facility]F [facility] Disch: SPEC : [id number] PAPI: 11/27/24 STATUS: COMP REQ : [id number] RECD: 11/27/24-[address]: Ranjan Irvin MD COMP: 11/27/24 ENTERED: 11/27/[address]: Genie Lynne MD ORDERED: Met Prof Fast, Phos, AST, ALT, Lipid Panel Test Result Flag Reference Sodium 139 135-145 mmol/L Potassium 3.6 3.3-5.1 mmol/L CL 105 96-108 mmol/L CO2 25 22-29 mmol/L Gap 13 12-20 BUN 36 H 9-16 mg/dL Creat 1.23 0.5-1.4 mg/dL eGFR 43 Chronic Kidney Disease: Estimated GFR < 60 mL/min/1.73m2 Severe Kidney Disease: Estimated GFR < 15 mL/min/1.73m2 FBS 130 H 60-99 mg/dL A fasting glucose of 126 mg/dl or greater on more than one occasion is considered diagnostic of diabetes. CA 9.4 8.4-10.2 mg/dL Phosphorus 3.2 2.7-4.5 mg/dL AST (GOT) 22 5-31 U/L ALT (GPT) 10 0-31 U/L Triglyceride 180 H <150 mg/dL Desirable Triglyceride: less than 150 mg/dL Borderline High Triglyceride 150-199 mg/dL High Triglyceride: 200-499 mg/dL Very High Triglyceride: greater than or equal to 5OO mg/dL Cholesterol 140 <200 mg/dL Desirable Cholesterol: less than 200 mg/dL Borderline High Cholesterol: 200-239 mg/dL High Cholesterol: greater than 239 mg/dL LDL Calculated 74 <100 mg/dL Desirable LDL: less than 100 mg/dL Near Optimal/Above Optimal LDL: 110-129 mg/dL Borderline High LDL: 130-159 mg/dL High LDL: 160-189 mg/dL Very High LDL: greater than or equal to 190 mg/dL HDL 30 L >40 mg/dL Desirable HDL: greater than 40 mg/dL Note: This HDL assay may give artificially low results in patients with liver disease. a Coding Level of Care Code Est Pt Level 4 (07128) Complex EM visit Add On G2211 Diagnoses Diabetes mellitus with microalbuminuria, without long-term current use of insulin E11.29; R80.9 CKD (chronic kidney disease) stage 3, GFR 30-59 ml/min N18.30 Mixed dyslipidemia E78.2 Assessment & Plan Assessment & Plan (1) Diabetes mellitus with microalbuminuria, without long-term current use of insulin: Code(s): E11.29 - Type 2 diabetes mellitus with other diabetic kidney complication; R80.9 - Proteinuria, unspecified Category: Medical (2) CKD (chronic kidney disease) stage 3, GFR 30-59 ml/min: Comment: Followed by Dr. Irvin Code(s): N18.30 - Chronic kidney disease, stage 3 unspecified Category: Medical (3) Mixed dyslipidemia: Code(s): E78.2 - Mixed hyperlipidemia Category: Medical Orders: Orders AMB Hemoglobin A1c Today Z13.9 - Encounter for screening, unspecified Medications: New blood sugar diagnostic (FreeStyle Lite Strips) Check fasting blood sugar twice a day before meals 100 ea 8RF E11.29 - Type 2 diabetes mellitus with other diabetic kidney complication, R80.9 - Proteinuria, unspecified Jardiance (empagliflozin) 10 mg PO QAM 30 tabs 5RF NS E11.29 - Type 2 diabetes mellitus with other diabetic kidney complication, N18.30 - Chronic kidney disease, stage 3 unspecified, R80.9 - Proteinuria, unspecified
--- OUTSIDE RECORDS SUMMARY | 2024-11-29 13:47 | XMS_ITS | Clinical Summary ---
Author Organization [facility] Address [address] [place] [address] Phone Care Team Providers Care Record Clerk Salesperson Name Role Phone Dominik Albert MD Primary Care Provider [phone] Allergies No known active allergies Medications atorvastatin [...] Hemoglobin A1C 8.4(A) 4.0 - 6.0 07/23/2023 [facility] Provider LAB BLOOD ORDERABLES Elysia l Result from Last 3 Months or Most Recently Relevant to Health Maintenance Insurance [id number] [place] [address] MEDICARE [facility] MEDICARE [facility] Care Teams Record Clerk Salesperson Relationship Specialty Start Date End Date Dominik Albert MD PCP - General Nephrology 12/27/23
--- OUTSIDE RECORDS SUMMARY | 2024-11-29 13:47 | XMS_ITS | Encounter Summary ---
Author Organization [facility] Address [address] [place] [address] Phone Care Team Providers Care External Relations Manager Name Role Phone Dominik Albert MD Primary Care Provider [phone] Encounter Details Date Type Department Care Team (Late st Contact Info) Description 06/30/2022 Telephone [facility] [address] [place] [address] Mony Donovan Social History Tobacco [...] Stage 3B means please call her at [phone] documented in this encounter Plan of Treatment Not on file documented as of this encounter Visit Diagnoses Not on filedocumented in this encounter Care Teams External Relations Manager Relationship Specialty Start Date End Date Dominik Albert MD PCP - General Nephrology 12/27/23 documented as of this encounter
== END 2024-11-29 12:28 | disposition home or self-care (01) ==
PROVIDERS: PCP Internal Medicine; Visit Provider Internal Medicine
DX: Z13.9 Encounter for screening, unspecified (principal)

== ENCOUNTER → 2024-11-29 11:23 | Outpatient (BNVA) | payer MEDICARE, MEDICAID, SELFPAY | PROVIDERS: PCP Internal Medicine; Visit Provider Internal Medicine | DX: E11.29 Type 2 diabetes mellitus with other diabetic kidney complication (principal); R80.9 Proteinuria, unspecified; E78.2 Mixed hyperlipidemia; N18.30 Chronic kidney disease, stage 3 unspecified | CPT/HCPCS: 83036; 99212 ==

== ENCOUNTER 2024-12-05 09:47 | Outpatient (AMB) | payer MEDICARE, MEDICAID, SELFPAY ==
[2024-12-05 09:52] VITALS: BP 170/50; PULSE 81; O2SAT 97; BMI 28.9
--- NOTE | 2024-12-05 09:52 | HO.NEPHOV ---
Vital Signs 12/05/24 09:52 12/05/24 10:05 Height 5 ft 3 in Weight 163 lb BMI 28.9 BP 170/50 H 140/50 H Blood Pressure Location Lt brachial Position Sitting Pulse 81 Pulse Source Pulse Oximeter Pulse Oximetry (%) 97 Oxygen Delivery Method Room Air Intake Visit Reasons: CKD/ Conf Property Management Assistant Required: No Accompanied by: Self / Same As Patient Allergies No Known Allergies Allergy (Verified 12/05/24 09:53) Medication List - Last Reconciled 12/05/24 by Ranjan Irvin MD atorvastatin 10 mg PO DAILY blood sugar diagnostic (FreeStyle Lite Strips) USE TO TEST DIRECTED ONCE DAILY (E11.9) blood sugar diagnostic (FreeStyle Lite Strips) Check fasting blood sugar twice a day before meals brimonidine 0.2% 1 drp ophthalmic (eye) BID digoxin 250 mcg PO DAILY diltiazem HCl CD 300 mg PO DAILY hydralazine 75 mg (3 x 25 mg) PO TID hydrochlorothiazide 25 mg PO DAILY Jardiance (empagliflozin) 10 mg PO QAM NS lancets As directed multivitamin 1 tab PO DAILY omega-3 fatty acids 1,200 mg PO BID pioglitazone 45 mg PO DAILY repaglinide 4 mg (2 x 2 mg) PO TID 90 days warfarin 5 mg See Protocol PO DAILY HPI Comments Details: And is a pleasant 73-year-old woman with a history of hypertension diabetes has been obesity. She was stage III CKD. Recent creatinine is around 1.17 mg/dL She is here for further follow up urine CKD. She continues to have some shortness of breath on exertion however did this improves with some fluid intake. No significant edema no urinary symptoms. 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, without long-term current use of insulin Colonoscopy refused Hyperkalemia Paroxysmal atrial fibrillation Mixed dyslipidemia Essential hypertension Diabetes mellitus with microalbuminuria, without long-term current use of insulin Surgical History History of placement of ear tubes Hx of cholecystectomy Family History Father Unknown family medical history Mother Unknown family medical history Son Mental health disorder Social History Housing: House Alcohol intake: never Patient Tobacco Use Status: Never used Tobacco e-Cigarette/Vaping Use: Never Used service: No Current occupational status: retired Cognitive needs: No Hearing needs: No Vision needs: No Physical Exam Vital Signs: Last Vital Signs Pulse 81 12/05/24 09:52 BP 170/50 H 12/05/24 09:52 Pulse Ox 97 12/05/24 09:52 Oxygen Delivery Method Room Air 12/05/24 09:52 BMI result Body Mass Index 28.9 Const General: comfortable; No acute distress Orientation/consciousness: patient oriented x3 Eyes General: appearance normal, both eyes and all related structures Visual Jon: normal visual jon by confrontation Neck Neck: Yes supple and Yes no JVD Resp Effort & Inspection: normal respiratory effort and respiratory effort not decreased Cardio Palpation: no palpable S3 and no palpable S4 Heart sounds: no rubs GI Inspection: Yes normal to inspection Palpation (GI): Soft to palpation Percussion: Yes normal to percussion Auscultation: normal bowel sounds General: Yes no CVA tenderness Back/Spine/Pelvis Back: no CVA tenderness Skin General skin exam: no petechiae and no purpura Neuro General: patient oriented x3 and no focal motor deficits Extrem General: No clubbing and No edema Results Reviewed Nephrology Results: Hgb 11.0 g/dl (12.0-16.0) L 11/27/24 WBC 6.5 X10*3/uL (4.8-10.8) 11/27/24 Plt Count 237 X10*3/uL (160-400) 11/27/24 Sodium 139 mmol/L (135-145) 11/27/24 Potassium 3.6 mmol/L (3.3-5.1) 11/27/24 Chloride 105 mmol/L (96-108) 11/27/24 Carbon Dioxide 25 mmol/L (22-29) 11/27/24 BUN 36 mg/dL (9-16) H 11/27/24 Creatinine 1.23 mg/dL (0.5-1.4) 11/27/24 Calcium 9.4 mg/dL (8.4-10.2) 11/27/24 Phosphorus 3.2 mg/dL (2.7-4.5) 11/27/24 PTH Intact 48.7 pg/mL (8.7-77.1) 11/27/24 Urine Creatinine 54.81 mg/dL 11/27/24 Assessment & Plan Assessment & Plan (1) CKD (chronic kidney disease) stage 3, GFR 30-59 ml/min: Comment: Followed by Dr. Irvin Code(s): N18.30 - Chronic kidney disease, stage 3 unspecified Category: Medical (2) Essential hypertension: Code(s): I10 - Essential (primary) hypertension Category: Medical (3) Diabetes mellitus with microalbuminuria, without long-term current use of insulin: Code(s): E11.29 - Type 2 diabetes mellitus with other diabetic kidney complication; R80.9 - Proteinuria, unspecified Category: Medical Plan . Lupe is a pleasant 74-year-old man with a history of longstanding hypertension diabetes mellitus with CKD. Renal function is close to baseline. Clinically she is euvolemic. Blood pressure is better controlled. Keep hydralazine 75 100 mg 3 times a day. Encouraged her to stay on low-sodium diet. DM OK to use Metformin eGFR is about 46 ml/mt If eGFR is < 30 ml/mt, would avoid MEtformin Agree with Jardiance . Orders: Orders Blood Urea Nitrogen 4 Months N18.4 - Chronic kidney disease, stage 4 (severe) Coding Level of Care Code Est Pt Level 4 (27054) Diagnoses CKD (chronic kidney disease) stage 3, GFR 30-59 ml/min N18.30 Essential hypertension I10 Diabetes mellitus with microalbuminuria, without long-term current use of insulin E11.29; R80.9
[2024-12-05 10:05] VITALS: BP 140/50
--- OUTSIDE RECORDS SUMMARY | 2024-12-05 11:06 | XMS_ITS | Encounter Summary ---
Author Organization [facility] Address [address] [place] [address] Phone Care Team Providers Care Co Teacher Name Role Phone Dominik Albert MD Primary Care Provider [phone] Encounter Details Date Type Department Care Team (Late st Contact Info) Description 06/30/2022 Telephone [facility] [address] [place] [address] Mony Donovan Social History Tobacco [...] Stage 3B means please call her at [phone] documented in this encounter Plan of Treatment Not on file documented as of this encounter Visit Diagnoses Not on filedocumented in this encounter Care Teams Co Teacher Relationship Specialty Start Date End Date Dominik Albert MD PCP - General Nephrology 12/27/23 documented as of this encounter
--- OUTSIDE RECORDS SUMMARY | 2024-12-05 11:06 | XMS_ITS | Clinical Summary ---
Author Organization [facility] Address [address] [place] [address] Phone Care Team Providers Care Power Barker Name Role Phone Dominik Albert MD Primary Care Provider [phone] Allergies No known active allergies Medications atorvastatin [...] Hemoglobin A1C 8.4(A) 4.0 - 6.0 07/23/2023 [facility] Provider LAB BLOOD ORDERABLES Elysia l Result from Last 3 Months or Most Recently Relevant to Health Maintenance Insurance [address] [place] [address] MEDICARE [facility] MEDICARE [facility] Care Teams Power Barker Relationship Specialty Start Date End Date Dominik Albert MD PCP - General Nephrology 12/27/23
== END 2024-12-05 10:07 | disposition home or self-care (01) ==
LOC: HO.HKA 09:47
PROVIDERS: PCP Internal Medicine; Visit Provider Internal Medicine Hypertension Specialist
DX: N18.30 Chronic kidney disease, stage 3 unspecified (principal); I10 Essential (primary) hypertension; E11.29 Type 2 diabetes mellitus with other diabetic kidney complication; R80.9 Proteinuria, unspecified
CPT/HCPCS: 99214

== ENCOUNTER → 2024-12-05 09:47 | Outpatient (BNVA) | payer MEDICARE, MEDICAID, SELFPAY | PROVIDERS: PCP Internal Medicine; Visit Provider Internal Medicine Hypertension Specialist | DX: N18.30 Chronic kidney disease, stage 3 unspecified (principal); I12.9 Hypertensive chronic kidney disease with stage 1 through stage 4 chronic kidney disease, or unspecified chronic kidney disease; E11.29 Type 2 diabetes mellitus with other diabetic kidney complication; R80.9 Proteinuria, unspecified | CPT/HCPCS: 99212 ==

== ENCOUNTER 2024-12-20 10:13 | Outpatient (AMB) | payer MEDICARE, MEDICAID, SELFPAY ==
[2024-12-20 10:39] LABS: Prothrombin Time Whole Bld POC 26.3 sec (11.1-13.5); ~PT, ~INR - Anti Coag Clinic 2.2 (0.9-1.1)
--- NOTE | 2024-12-20 10:48 | MHC.OFFVISCO ---
Intake Intake Visit Reasons: Anticoagulation Allergies No Known Allergies Allergy (Verified 12/20/24 10:23) Medication List - Last Reconciled 12/20/24 by Luisa Robbins RN atorvastatin 10 mg PO DAILY blood sugar diagnostic (FreeStyle Lite Strips) USE TO TEST DIRECTED ONCE DAILY (E11.9) blood sugar diagnostic (FreeStyle Lite Strips) Check fasting blood sugar twice a day before meals brimonidine 0.2% 1 drp ophthalmic (eye) BID digoxin 250 mcg PO DAILY diltiazem HCl CD 300 mg PO DAILY hydralazine 75 mg (3 x 25 mg) PO TID hydrochlorothiazide 25 mg PO DAILY Jardiance (empagliflozin) 10 mg PO QAM NS lancets As directed multivitamin 1 tab PO DAILY omega-3 fatty acids 1,200 mg PO BID pioglitazone 45 mg PO DAILY repaglinide 4 mg (2 x 2 mg) PO TID 90 days warfarin 5 mg See Protocol PO DAILY Nursing Note NO CP,SOB,DIET/MED CHANGES,FALLS OR SX OF BLEEDING. CONTINUE PRESENT DOSE AND FOLLOW-UP IN 4 WEEKS. GOOD UNDERSTANDING OF DOSING INSTR. Anti-Coag Initial Assessment Social Hx Patient Tobacco Use Status: Never used Tobacco alcohol intake: never Coding Level of Care Code Est Patient Level 1 Diagnoses Current use of anticoagulant therapy Z79.01 Results AMB INR Fingerstick AMB INR Fingerstick 2.2 Last Edit by Luisa Robbins RN on 12/20/24 10:37 Assessment & Plan Assessment & Plan (1) Current use of anticoagulant therapy: Code(s): Z79.01 - prison (current) use of anticoagulants Category: Medical
--- OUTSIDE RECORDS SUMMARY | 2024-12-20 11:48 | XMS_ITS | Clinical Summary ---
Author Organization [facility] Address [address] [place] [address] Phone Care Team Providers Care Loading Inspector Name Role Phone Dominik Albert MD Primary Care Provider Allergies No known active allergies Medications atorvastatin [...] Hemoglobin A1C 8.4(A) 4.0 - 6.0 07/23/2023 [facility] Provider LAB BLOOD ORDERABLES Elysia l Result from Last 3 Months or Most Recently Relevant to Health Maintenance Insurance [address] [place] [address] MEDICARE [facility] MEDICARE [facility] Care Teams Loading Inspector Relationship Specialty Start Date End Date Dominik Albert MD PCP - General Nephrology 12/27/23
--- OUTSIDE RECORDS SUMMARY | 2024-12-20 11:48 | XMS_ITS | Encounter Summary ---
Author Organization [facility] Address [address] [place] [address] Phone Care Team Providers Care Is Project Manager Name Role Phone Dominik Albert MD Primary Care Provider [phone] Encounter Details Date Type Department Care Team (Late st Contact Info) Description 06/30/2022 Telephone [facility] [address] [place] [address] Mony Donovan Social History Tobacco [...] encounter Miscellaneous Notes * Telephone Encounter - Perliat Longoria - 07/01/2022 10:01 AM EDT Pt Advised * Telephone Encounter - Perlita Longoria - 07/01/2022 10:01 AM EDT Pt Advised * Telephone Encounter - Mony Donovan - 06/30/2022 1:10 PM EDT Patient was in yesterday and wants to know what CKD Stage 3B means please call her at [phone] documented in this encounter Plan of Treatment Not on file documented as of this encounter Visit Diagnoses Not on filedocumented in this encounter Care Teams Is Project Manager Relationship Specialty Start Date End Date Dominik Albert MD PCP - General Nephrology 12/27/23 documented as of this encounter
== END 2024-12-20 10:50 | disposition home or self-care (01) ==
LOC: HO.ACS 10:13
PROVIDERS: PCP Internal Medicine; Visit Provider Internal Medicine Medical Oncology
DX: Z79.01 Long term (current) use of anticoagulants (principal)

== ENCOUNTER → 2024-12-20 10:13 | Outpatient (BNVA) | payer MEDICARE, MEDICAID, SELFPAY | PROVIDERS: PCP Internal Medicine; Visit Provider Internal Medicine Medical Oncology | DX: I48.20 Chronic atrial fibrillation, unspecified (principal); Z79.01 Long term (current) use of anticoagulants; Z51.81 Encounter for therapeutic drug level monitoring | CPT/HCPCS: 85610; 99211 ==

== ENCOUNTER 2024-12-22 09:42 | Outpatient (REF) | payer MEDICARE, MEDICAID, SELFPAY ==
--- NOTE | ~2024-12-22 | XR_ITS ---
EXAMINATION: XR HAND/WRIST, RIGHT CLINICAL INFORMATION: M25.531 - Pain in right wrist COMPARISON: None available. TECHNIQUE: PA, lateral, and oblique views of the right hand and wrist. FINDINGS: No fracture, dislocation, or suspicious bone lesion. Normal bone mineralization. Normal alignment. Amorphous soft tissue calcifications in the dorsal wrist soft tissues, uncertain etiology. Mild osteoarthritis at the first CMC joint and STT joints, as well as the first MCP joint. Minimal arthritic changes throughout the DIP joints most significant in the second digit. Remainder the joint spaces appear largely preserved. Carpal bones intact and normally aligned. Mild dorsal soft tissue prominence abutting the soft tissue calcifications. Diffuse vascular calcifications. XR/XR hand wrist RT IMPRESSION: 1. Amorphous soft tissue calcifications dorsal to the wrist, seen only on the lateral projection. These are of uncertain significance or etiology, although tumoral CPPD is a consideration. Acute calcific periarthritis is an additional consideration, as well as acute calcific precipitation reaction. 2. Mild osteoarthritic changes as discussed. 2. Diffuse vascular calcifications in the soft tissues. Electronically signed by: Javier Ivory MD 12/22/2024 11:45 AM EDT
== END 2024-12-22 09:43 | disposition home or self-care (01) ==
LOC: HO.HMGCX 09:42
PROVIDERS: PCP Internal Medicine; Visit Provider Internal Medicine
DX: M25.531 Pain in right wrist (principal); M25.431 Effusion, right wrist
CPT/HCPCS: 73110; 73130; 99212

== ENCOUNTER 2024-12-22 09:42 | Outpatient (AMB) | payer MEDICARE, MEDICAID, SELFPAY ==
[2024-12-22 09:46] VITALS: BP 122/76; PULSE 79; O2SAT 98; BMI 29.4
--- NOTE | 2024-12-22 09:46 | MHC.OFFWIV ---
Intake Vital Signs 12/22/24 09:46 Height 5 ft 3 in Weight 166 lb BMI 29.4 BP 122/76 Blood Pressure Location Lt brachial Position Sitting Pulse 79 Pulse Source Pulse Oximeter Pulse Oximetry (%) 98 Oxygen Delivery Method Room Air Intake Visit Reasons: EP injured RT hand has pain & is swollen Intake Note: Patient here for right hand pain and swelling after moving a bucket of sand into her garage which happened yesterday. Patient Tobacco Use Status: Never used Tobacco Allergies No Known Allergies Allergy (Verified 12/22/24 09:51) Medication List - Last Reconciled 12/22/24 by Sylvia Kelley MD atorvastatin 10 mg PO DAILY blood sugar diagnostic (FreeStyle Lite Strips) USE TO TEST DIRECTED ONCE DAILY (E11.9) blood sugar diagnostic (FreeStyle Lite Strips) Check fasting blood sugar twice a day before meals brimonidine 0.2% 1 drp ophthalmic (eye) BID digoxin 250 mcg PO DAILY diltiazem HCl CD 300 mg PO DAILY hydralazine 75 mg (3 x 25 mg) PO TID hydrochlorothiazide 25 mg PO DAILY Jardiance (empagliflozin) 10 mg PO QAM NS lancets As directed multivitamin 1 tab PO DAILY omega-3 fatty acids 1,200 mg PO BID pioglitazone 45 mg PO DAILY repaglinide 4 mg (2 x 2 mg) PO TID 90 days warfarin 5 mg See Protocol PO DAILY Do you need a note to return to daycare/school/sports/work: No HPI EP injured RT hand has pain & is swollen HPI Details History - The patient is a 74 year old female presenting with right wrist pain and swelling. - Onset of symptoms occurred the previous day after moving a bucket of sand - While able to move fingers, the wrist is painful, notably upon movement. - Applied ice helps with swelling; dann wrap used for minimal support. Tylenol is taken due to her use of blood thinners, and she is advised to avoid ibuprofen. - She attempts to minimize use of her dominant right hand due to significant pain, and she resides independently. Problem List - Right Wrist Pain - Use of Blood Thinners Patient Instructions - Proceed to get an X-ray of the right wrist. - Wear the splint provided and keep the wrist in a fixed position to prevent further injury. The splint is to be removed for the X-ray and then replaced. - Keep the right hand elevated to reduce pain and swelling. - Continue taking Tylenol as needed for pain management but avoid ibuprofen. - Await a phone call regarding X-ray results for further instructions. - Contact the clinic if there is any severe increase in pain, swelling, or if new symptoms develop. Review of Systems - General: No fever no chills - Neurological: No headaches no dizziness - Ear nose throat: No sore throat no hearing difficulty no ear pain - Cardiovascular: No syncope, no chest pain, no palpitations - Gastrointestinal: No nausea vomiting or diarrhea Physical Exam General: No acute distress HEENT: No acute findings Neck: Supple Respiratory system: Able to talk in full sentences, no audible wheeze Extremities: mild Swollen right wrist , pain on movement, x-ray ordered, wrist splint applied UNIT DIRECTOR: Alert awake oriented x3 motor sensory intact in hand , vascular intact, no echymosis hand Skin: Normal turgor [facility] Medical History CKD (chronic kidney disease) stage 3, GFR 30-59 ml/min Glaucoma Mammogram declined 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, without long-term current use of insulin Colonoscopy refused Hyperkalemia Paroxysmal atrial fibrillation Mixed dyslipidemia Essential hypertension Diabetes mellitus with microalbuminuria, without long-term current use of insulin Surgical History History of placement of ear tubes Hx of cholecystectomy Family History Father Unknown family medical history Mother Unknown family medical history Son Mental health disorder Social History Housing: House Alcohol intake: never Patient Tobacco Use Status: Never used Tobacco e-Cigarette/Vaping Use: Never Used service: No Current occupational status: retired Cognitive needs: No Hearing needs: No Vision needs: No Physical Exam Vital Signs: Last Vital Signs Pulse 79 12/22/24 09:46 BP 122/76 12/22/24 09:46 Pulse Ox 98 12/22/24 09:46 Oxygen Delivery Method Room Air 12/22/24 09:46 BMI result Body Mass Index 29.4 Assessment & Plan Assessment & Plan (1) Wrist pain, right: Code(s): M25.531 - Pain in right wrist (2) Swelling of joint, wrist, right: Code(s): M25.431 - Effusion, right wrist Plan History - The patient is a 74 year old female presenting with right wrist pain and swelling. - Onset of symptoms occurred the previous day after moving a bucket of sand - While able to move fingers, the wrist is painful, notably upon movement. - Applied ice helps with swelling; dann wrap used for minimal support. Tylenol is taken due to her use of blood thinners, and she is advised to avoid ibuprofen. - She attempts to minimize use of her dominant right hand due to significant pain, and she resides independently. Problem List - Right Wrist Pain - Use of Blood Thinners Patient Instructions - Proceed to get an X-ray of the right wrist. - Wear the splint provided and keep the wrist in a fixed position to prevent further injury. The splint is to be removed for the X-ray and then replaced. - Keep the right hand elevated to reduce pain and swelling. - Continue taking Tylenol as needed for pain management but avoid ibuprofen. - Await a phone call regarding X-ray results for further instructions. - Contact the clinic if there is any severe increase in pain, swelling, or if new symptoms develop. Orders: Orders XR hand wrist RT Today M25.531 - Pain in right wrist Coding Level of Care Code Est Pt Level 3 (63408) Diagnoses Wrist pain, right M25.531 Swelling of joint, wrist, right M25.431
== END 2024-12-22 10:08 | disposition home or self-care (01) ==
PROVIDERS: PCP Internal Medicine; Visit Provider Internal Medicine
DX: M25.531 Pain in right wrist (principal); M25.431 Effusion, right wrist

== ENCOUNTER → 2024-12-22 10:14 | Outpatient (BNV) | payer MEDICARE, MEDICAID, SELFPAY | PROVIDERS: PCP Internal Medicine; Visit Provider Radiology Diagnostic Radiology | DX: M25.531 Pain in right wrist (principal) | CPT/HCPCS: 73130 ==

== ENCOUNTER 2024-12-29 08:01 | Outpatient (AMB) | payer MEDICARE, MEDICAID, SELFPAY ==
--- OUTSIDE RECORDS SUMMARY | 2024-12-29 08:12 | XMS_ITS | Encounter Summary ---
Author Organization [facility] Address [address] [address] [place] [address] Phone Care Team Providers Care Isotope Hydrologist Name Role Phone Dominik Albert MD Primary Care Provider [phone] Encounter Details Date Type Department Care Team (Late st Contact Info) Description 06/30/2022 Telephone [facility] [address] [place] [address] Mony Donovan Social History Tobacco [...] Stage 3B means please call her at [phone] documented in this encounter Plan of Treatment Not on file documented as of this encounter Visit Diagnoses Not on filedocumented in this encounter Care Teams Isotope Hydrologist Relationship Specialty Start Date End Date Dominik Albert MD PCP - General Nephrology 12/27/23 documented as of this encounter
--- OUTSIDE RECORDS SUMMARY | 2024-12-29 08:12 | XMS_ITS | Clinical Summary ---
Author Organization [facility] Address [address] [place] [address] Phone Care Team Providers Care Straightening Roll Operator Name Role Phone Dominik Albert MD Primary Care Provider [phone] Allergies No known active allergies Medications atorvastatin [...] Diabetes: Hemoglobin A1C 10/23/2023 07/23/2023 Influenza Vaccine (Season Ended) 2025 Hepatitis B Vaccine Aged Out No longe [...] Hemoglobin A1C 8.4(A) 4.0 - 6.0 07/23/2023 [facility] Provider LAB BLOOD ORDERABLES Elysia l Result from Last 3 Months or Most Recently Relevant to Health Maintenance Insurance [address] [place] [address] MEDICARE [facility] MEDICARE [facility] Care Teams Straightening Roll Operator Relationship Specialty Start Date End Date Dominik Albert MD PCP - General Nephrology 12/27/23
--- NOTE | 2024-12-29 08:17 | MHC.PC.OV ---
Intake Visit Reasons: discuss xray Rt wrist Allergies No Known Allergies Allergy (Verified 12/29/24 09:09) Medication List - Last Reconciled 12/29/24 by Genie Lynne MD atorvastatin 10 mg PO DAILY blood sugar diagnostic (FreeStyle Lite Strips) USE TO TEST DIRECTED ONCE DAILY (E11.9) blood sugar diagnostic (FreeStyle Lite Strips) Check fasting blood sugar twice a day before meals brimonidine 0.2% 1 drp ophthalmic (eye) BID digoxin 250 mcg PO DAILY diltiazem HCl CD 300 mg PO DAILY hydralazine 75 mg (3 x 25 mg) PO TID hydrochlorothiazide 25 mg PO DAILY Jardiance (empagliflozin) 10 mg PO QAM NS lancets As directed multivitamin 1 tab PO DAILY omega-3 fatty acids 1,200 mg PO BID pioglitazone 45 mg PO DAILY repaglinide 4 mg (2 x 2 mg) PO TID 90 days warfarin 5 mg See Protocol PO DAILY Tobacco use date assessed: 11/29/24 Fall risk assessment: No Falls in past year Last assessed Fall Risk: 12/29/24 Dental Screening Dental Screen Date: 11/29/24 HPI discuss xray Rt wrist HPI Details 74-year-old lady with history of diabetes mellitus, dyslipidemia, here today for follow-up after recent visit at the walk-in clinic complaining of pain in her right wrist, which started after she lifted a bucket of sand . Patient states that she has been taking Tylenol and resting affected extremity, with resolution of symptoms reported. At present feels well. X-ray of right wrist and hand showed presence of arthritis XR/XR hand wrist RT IMPRESSION: 1. Amorphous soft tissue calcifications dorsal to the wrist, seen only on the lateral projection. These are of uncertain significance or etiology, although tumoral CPPD is a consideration. Acute calcific periarthritis is an additional consideration, as well as acute calcific precipitation reaction. 2. Mild osteoarthritic changes as discussed. 2. Diffuse vascular calcifications in the soft tissues. 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, without long-term current use of insulin Colonoscopy refused Hyperkalemia Paroxysmal atrial fibrillation Mixed dyslipidemia Essential hypertension Diabetes mellitus with microalbuminuria, without long-term current use of insulin Surgical History History of placement of ear tubes Hx of cholecystectomy Family History Father Unknown family medical history Mother Unknown family medical history Son Mental health disorder Social History Housing: House Alcohol intake: never Patient Tobacco Use Status: Never used Tobacco e-Cigarette/Vaping Use: Never Used service: No Current occupational status: retired Cognitive needs: No Hearing needs: No Vision needs: No Questionnaire Thrive Questionnaire Date Thrive assessed: 11/29/24 EDE-7 AMB Questionnaire EDE-7 Date EDE - 7 assessed: 05/02/24 Source: Developed by Drs. Jeremy Fletcher, Светлана Bess, Garcia Gasca and colleagues, with an educational martir from [employer]. Review of Systems Const All systems reviewed & are unremarkable except as noted in HPI and below Physical exam (Primary Care) Tobacco/Smoking Status: Tobacco use Status Tobacco use date assessed 11/29/24 12/29/24 08:19 Patient Tobacco Use Status Never used Tobacco 12/29/24 08:19 e-Cigarette/Vaping Use Never Used 12/29/24 08:19 Thrive Assessment: Date of Thrive Assessment Date Thrive assessed 11/29/24 12/29/24 08:19 Telehealth Telehealth Telehealth Platform: [facility] Location of provider rendering services: practice address Location of patient: address on file Patient Identification confirmed using: Name, : Yes Telehealth method: video Patient verbally consented to treatment: Yes Patient verbally consented to billing insurance company: Yes Patient informed of any privacy concerns related to visit: Yes Minutes spent on Phone/Video with Pt.: 15 Coding Level of Care Code Tele Est Pt Level 3 (66207) Diagnoses Osteoarthritis M19.90 Diabetes mellitus with microalbuminuria, without long-term current use of insulin E11.29; R80.9 Assessment & Plan Assessment & Plan (1) Osteoarthritis: Code(s): M19.90 - Unspecified osteoarthritis, unspecified site Category: Medical Plan: Pain and swelling in right hand/wrist improved with Tylenol and resting, no further treatment indicated (2) Diabetes mellitus with microalbuminuria, without long-term current use of insulin: Code(s): E11.29 - Type 2 diabetes mellitus with other diabetic kidney complication; R80.9 - Proteinuria, unspecified Category: Medical Plan: Currently on Jardiance, pioglitazone and repaglinide. Reminded patient to get fasting labs done prior to her appointment for follow-up in March 2025 Orders: Orders Hemoglobin A1c 03/27/25 E11.29 - Type 2 diabetes mellitus with other diabetic kidney complication, E78.2 - Mixed hyperlipidemia, I10 - Essential (primary) hypertension, M19.90 - Unspecified osteoarthritis, unspecified site, R80.9 - Proteinuria, unspecified Alanine Aminotransferase 03/27/25 E11.29 - Type 2 diabetes mellitus with other diabetic kidney complication, E78.2 - Mixed hyperlipidemia, I10 - Essential (primary) hypertension, M19.90 - Unspecified osteoarthritis, unspecified site, R80.9 - Proteinuria, unspecified Complete Blood Count Auto Diff 03/27/25 E11.29 - Type 2 diabetes mellitus with other diabetic kidney complication, E78.2 - Mixed hyperlipidemia, I10 - Essential (primary) hypertension, M19.90 - Unspecified osteoarthritis, unspecified site, R80.9 - Proteinuria, unspecified Lipid Panel 03/27/25 E11.29 - Type 2 diabetes mellitus with other diabetic kidney complication, E78.2 - Mixed hyperlipidemia, I10 - Essential (primary) hypertension, M19.90 - Unspecified osteoarthritis, unspecified site, R80.9 - Proteinuria, unspecified Aspartate Amino Transferase 03/27/25 E11.29 - Type 2 diabetes mellitus with other diabetic kidney complication, E78.2 - Mixed hyperlipidemia, I10 - Essential (primary) hypertension, M19.90 - Unspecified osteoarthritis, unspecified site, R80.9 - Proteinuria, unspecified Basic Metabolic Panel Fasting 03/27/25 E11.29 - Type 2 diabetes mellitus with other diabetic kidney complication, E78.2 - Mixed hyperlipidemia, I10 - Essential (primary) hypertension, M19.90 - Unspecified osteoarthritis, unspecified site, R80.9 - Proteinuria, unspecified IRON PROFILE 03/27/25 E11.29 - Type 2 diabetes mellitus with other diabetic kidney complication, E78.2 - Mixed hyperlipidemia, I10 - Essential (primary) hypertension, M19.90 - Unspecified osteoarthritis, unspecified site, R80.9 - Proteinuria, unspecified
== END 2024-12-29 09:43 | disposition home or self-care (01) ==
LOC: HO.HMCC 08:01
PROVIDERS: PCP Internal Medicine; Visit Provider Internal Medicine
DX: M19.90 Unspecified osteoarthritis, unspecified site (principal); E11.29 Type 2 diabetes mellitus with other diabetic kidney complication; R80.9 Proteinuria, unspecified

== ENCOUNTER → 2024-12-29 08:01 | Outpatient (BNVA) | payer MEDICARE, MEDICAID, SELFPAY | PROVIDERS: PCP Internal Medicine; Visit Provider Internal Medicine ==

== ENCOUNTER 2025-01-17 10:25 | Outpatient (AMB) | payer MEDICARE, MEDICAID, SELFPAY ==
[2025-01-17 10:30] LABS: Prothrombin Time Whole Bld POC 33.5 sec (11.1-13.5); ~PT, ~INR - Anti Coag Clinic 2.8 (0.9-1.1)
--- NOTE | 2025-01-17 10:37 | MHC.OFFVISCO ---
Intake Intake Visit Reasons: Anticoagulation Allergies No Known Allergies Allergy (Verified 01/17/25 10:25) Medication List - Last Reconciled 01/17/25 by Luisa Robbins RN atorvastatin 10 mg PO DAILY blood sugar diagnostic (FreeStyle Lite Strips) USE TO TEST DIRECTED ONCE DAILY (E11.9) blood sugar diagnostic (FreeStyle Lite Strips) Check fasting blood sugar twice a day before meals brimonidine 0.2% 1 drp ophthalmic (eye) BID digoxin 250 mcg PO DAILY diltiazem HCl CD 300 mg PO DAILY hydralazine 75 mg (3 x 25 mg) PO TID hydrochlorothiazide 25 mg PO DAILY Jardiance (empagliflozin) 10 mg PO QAM NS lancets As directed multivitamin 1 tab PO DAILY omega-3 fatty acids 1,200 mg PO BID pioglitazone 45 mg PO DAILY repaglinide 4 mg (2 x 2 mg) PO TID 90 days warfarin 5 mg See Protocol PO DAILY Nursing Note NO CP,SOB,DIET/MED CHANGES,FALLS OR SX OF BLEEDING. CONTINUE PRESENT DOSING AND FOLLOW-UP IN 4 WEEKS. GOOD UNDERSTANDING OF DOSING INSTR. Anti-Coag Initial Assessment Social Hx Patient Tobacco Use Status: Never used Tobacco alcohol intake: never Coding Level of Care Code Est Patient Level 1 Diagnoses Current use of anticoagulant therapy Z79.01 Assessment & Plan Assessment & Plan (1) Current use of anticoagulant therapy: Code(s): Z79.01 - superintendent terminal (current) use of anticoagulants Category: Medical
--- OUTSIDE RECORDS SUMMARY | 2025-01-17 12:15 | XMS_ITS | Clinical Summary ---
Author Organization [facility] Address [address] [place] [address] Phone Care Team Providers Care Home Comfort Advisor Name Role Phone Dominik Albert MD Primary Care Provider [phone] Allergies No known active allergies Medications atorvastatin [...] Comments Breast Cancer Screening 1950 Pneumococcal Vaccine: 50+ Ye ars (1 of 2 - PCV) 1968 Colorectal Cancer Screening: Annual FOBT 1998 Colorectal [...] Hemoglobin A1C 8.4(A) 4.0 - 6.0 07/23/2023 [facility] Provider LAB BLOOD ORDERABLES Elysia l Result from Last 3 Months or Most Recently Relevant to Health Maintenance Insurance [address] [place] [address] Medicare [facility] Medicare [facility] Care Teams Home Comfort Advisor Relationship Specialty Start Date End Date Dominik Albert MD PCP - General Nephrology 12/27/23
--- OUTSIDE RECORDS SUMMARY | 2025-01-17 12:15 | XMS_ITS | Encounter Summary ---
Author Organization [facility] Address [address] [place] [address] Phone Care Team Providers Care Spool Winder Name Role Phone Dominik Albetr MD Primary Care Provider [phone] Encounter Details Date Type Department Care Team (Late st Contact Info) Description 06/30/2022 Telephone [facility] [address] [place] [address] Mony Donovan Social History Tobacco [...] Stage 3B means please call her at [phone] documented in this encounter Plan of Treatment Not on file documented as of this encounter Visit Diagnoses Not on filedocumented in this encounter Care Teams Spool Winder Relationship Specialty Start Date End Date Dominik Albert MD PCP - General Nephrology 12/27/23 documented as of this encounter
== END 2025-01-17 10:44 | disposition home or self-care (01) ==
LOC: HO.ACS 10:25
PROVIDERS: PCP Internal Medicine; Visit Provider Internal Medicine Medical Oncology
DX: Z79.01 Long term (current) use of anticoagulants (principal)

== ENCOUNTER → 2025-01-17 10:25 | Outpatient (BNVA) | payer MEDICARE, MEDICAID, SELFPAY | PROVIDERS: PCP Internal Medicine; Visit Provider Internal Medicine Medical Oncology | DX: I48.20 Chronic atrial fibrillation, unspecified (principal); Z79.01 Long term (current) use of anticoagulants; Z51.81 Encounter for therapeutic drug level monitoring | CPT/HCPCS: 85610; 99211 ==

== ENCOUNTER 2025-02-14 10:15 | Outpatient (AMB) | payer MEDICARE, MEDICAID, SELFPAY ==
[2025-02-14 10:45] LABS: Prothrombin Time Whole Bld POC 49.5 sec (11.1-13.5); ~PT, ~INR - Anti Coag Clinic 4.1 (0.9-1.1)
--- NOTE | 2025-02-14 11:01 | MHC.OFFVISCO ---
Intake Intake Visit Reasons: Anticoagulation Allergies No Known Allergies Allergy (Verified 02/14/25 10:38) Medication List - Last Reconciled 02/14/25 by Luisa Robbins RN atorvastatin 10 mg PO DAILY blood sugar diagnostic (FreeStyle Lite Strips) USE TO TEST DIRECTED ONCE DAILY (E11.9) blood sugar diagnostic (FreeStyle Lite Strips) Check fasting blood sugar twice a day before meals brimonidine 0.2% 1 drp ophthalmic (eye) BID digoxin 250 mcg PO DAILY diltiazem HCl CD 300 mg PO DAILY hydralazine 75 mg (3 x 25 mg) PO TID hydrochlorothiazide 25 mg PO DAILY Jardiance (empagliflozin) 10 mg PO QAM NS lancets As directed multivitamin 1 tab PO DAILY omega-3 fatty acids 1,200 mg PO BID pioglitazone 45 mg PO DAILY repaglinide 4 mg (2 x 2 mg) PO TID 90 days warfarin 5 mg See Protocol PO DAILY Nursing Note PT.STATTES THAT SHE HAS HAD VERY LARGE AMOUTS OF [place] THIS WEEK. NO CP,SOB, MED CHANGES OR SX OF BLEEDING HOLD WARFARIN TODAY THENRESUME USUAL DOSE AND FOLLOW-UP IN 3 WEEKS. WILL BALANCE REDS WITH GREENS BETTER GOOD UNDERSTANDING OF DOSING INSTR. Anti-Coag Initial Assessment Social Hx Patient Tobacco Use Status: Never used Tobacco alcohol intake: never Coding Level of Care Code Est Patient Level 1 Diagnoses Current use of anticoagulant therapy Z79.01 Assessment & Plan Assessment & Plan (1) Current use of anticoagulant therapy: Code(s): Z79.01 - termite control servicer (current) use of anticoagulants Category: Medical
--- OUTSIDE RECORDS SUMMARY | 2025-02-14 11:47 | XMS_ITS | Encounter Summary ---
Author Organization [facility] Address [address] [place] [address] Phone Care Team Providers Care Nutrition Coordinator Name Role Phone Dominik Albert MD Primary Care Provider [phone] Encounter Details Date Type Department Care Team (Late st Contact Info) Description 06/30/2022 Telephone [facility] [address] [place] [address] Mony Donovan Social History Tobacco [...] Stage 3B means please call her at [phone] documented in this encounter Plan of Treatment Not on file documented as of this encounter Visit Diagnoses Not on filedocumented in this encounter Care Teams Nutrition Coordinator Relationship Specialty Start Date End Date Dominik Albert MD PCP - General Nephrology 12/27/23 documented as of this encounter
--- OUTSIDE RECORDS SUMMARY | 2025-02-14 11:47 | XMS_ITS | Clinical Summary ---
Author Organization [facility] Address [address] [place] [address] Phone Care Team Providers Care Therapeutic Recreation Leader Name Role Phone Dominik Albert MD Primary Care Provider [phone] Allergies No known active allergies Medications atorvastatin [...] A1C 8.4(A) 4.0 - 6.0 07/23/2023 [facility] Provider LAB BLOOD ORDERABLES Elysia l Result from Last 3 Months or Most Recently Relevant to Health Maintenance Insurance [id number] [place] [address] Medicare [facility] Medicare [facility] Care Teams Therapeutic Recreation Leader Relationship Specialty Start Date End Date Dominik Albert MD PCP - General Nephrology 12/27/23
== END 2025-02-14 11:04 | disposition home or self-care (01) ==
LOC: HO.ACS 10:15
PROVIDERS: PCP Internal Medicine; Visit Provider Internal Medicine Medical Oncology
DX: Z79.01 Long term (current) use of anticoagulants (principal)

== ENCOUNTER → 2025-02-14 10:15 | Outpatient (BNVA) | payer MEDICARE, MEDICAID, SELFPAY | PROVIDERS: PCP Internal Medicine; Visit Provider Internal Medicine Medical Oncology | DX: I48.20 Chronic atrial fibrillation, unspecified (principal); Z79.01 Long term (current) use of anticoagulants; Z51.81 Encounter for therapeutic drug level monitoring | CPT/HCPCS: 85610; 99211 ==

== ENCOUNTER 2025-03-06 10:48 | Outpatient (AMB) | payer MEDICARE, MEDICAID, SELFPAY ==
[2025-03-06 11:33] LABS: Prothrombin Time Whole Bld POC 35.3 sec (11.1-13.5); ~PT, ~INR - Anti Coag Clinic 2.9 (0.9-1.1)
--- NOTE | 2025-03-06 11:47 | MHC.OFFVISCO ---
Intake Intake Visit Reasons: Anticoagulation Allergies No Known Allergies Allergy (Verified 03/06/25 11:25) Medication List - Last Reconciled 03/06/25 by Nelia Puente RN atorvastatin 10 mg PO DAILY blood sugar diagnostic (FreeStyle Lite Strips) USE TO TEST DIRECTED ONCE DAILY (E11.9) blood sugar diagnostic (FreeStyle Lite Strips) Check fasting blood sugar twice a day before meals brimonidine 0.2% 1 drp ophthalmic (eye) BID digoxin 250 mcg PO DAILY diltiazem HCl CD 300 mg PO DAILY hydralazine 75 mg (3 x 25 mg) PO TID hydrochlorothiazide 25 mg PO DAILY Jardiance (empagliflozin) 10 mg PO QAM NS lancets As directed multivitamin 1 tab PO DAILY omega-3 fatty acids 1,200 mg PO BID pioglitazone 45 mg PO DAILY repaglinide 4 mg (2 x 2 mg) PO TID 90 days warfarin 5 mg See Protocol PO DAILY Nursing Note INR: 2.9 in therapeutic range Medications and supplements reviewed No changes in health, diet, medications, or supplements, Denies any signs and symptoms of bleeding or bruising or clotting. Bleeding, bruising, clotting discussed Nutritional guidance given Dose: 2.5mg x 1 day/ 5mg x 6 days F/U INR: 1 month Patient verbalizes understanding of instructions given Anti-Coag Initial Assessment Social Hx Patient Tobacco Use Status: Never used Tobacco alcohol intake: never Coding Level of Care Code Est Patient Level 1 Diagnoses Current use of anticoagulant therapy Z79.01 Assessment & Plan Assessment & Plan (1) Current use of anticoagulant therapy: Code(s): Z79.01 - custodial (current) use of anticoagulants Category: Medical
--- OUTSIDE RECORDS SUMMARY | 2025-03-06 12:44 | XMS_ITS | Clinical Summary ---
Author Organization [facility] Address [address] [place] [address] Phone Care Team Providers Care Well Blower Name Role Phone Dominik lAbert MD Primary Care Provider [phone] Allergies No known active allergies Medications atorvastatin [...] Hemoglobin A1C 8.4(A) 4.0 - 6.0 07/23/2023 [facility] Provider LAB BLOOD ORDERABLES Elysia l Result from Last 3 Months or Most Recently Relevant to Health Maintenance [id number] [place] [id number] Medicare [facility] Medicare [facility] Care Teams Well Blower Relationship Specialty Start Date End Date Dominik Albert MD PCP - General Nephrology 12/27/23
== END 2025-03-06 11:50 | disposition home or self-care (01) ==
LOC: HO.ACS 10:48
PROVIDERS: PCP Internal Medicine; Visit Provider Internal Medicine Medical Oncology
DX: Z79.01 Long term (current) use of anticoagulants (principal)

== ENCOUNTER → 2025-03-06 10:48 | Outpatient (BNVA) | payer MEDICARE, MEDICAID, SELFPAY | PROVIDERS: PCP Internal Medicine; Visit Provider Internal Medicine Medical Oncology | DX: I48.0 Paroxysmal atrial fibrillation (principal); Z79.01 Long term (current) use of anticoagulants; Z51.81 Encounter for therapeutic drug level monitoring | CPT/HCPCS: 85610; 99211 ==

== ENCOUNTER 2025-03-29 06:43 | Outpatient (REF) | payer MEDICARE, MEDICAID, SELFPAY ==
[2025-03-29 10:06] LABS: MANUAL DIFF FLAG NO
[2025-03-29 10:18] LABS: Hematocrit 36.1 % (37.0-47.0); Hemoglobin 11.7 g/dl (12.0-16.0); Imm Gran Abs Auto 0.03 X10*3/uL (0.00-0.03); Imm Gran Pct Auto 0.4 % (0.0-0.4); Lymphocytes Absolute Auto 1.4 X10*3/uL (1.2-4.9); Mean Corpuscular HGB Conc 32.4 g/dl (31.0-35.0); Mean Corpuscular Hemoglobin 28.3 pg (27.0-33.0); Mean Corpuscular Volume 87.4 fL (80.0-98.0); NRBC Abs Auto 0.000 X10*3/uL (0.0-0.012); NRBC Pct Auto 0.0 /100WBC (0.0-0.2); Platelet Count 217 X10*3/uL (160-400); Red Blood Count 4.13 X10*6/uL (4.20-5.50); White Blood Count 7.0 X10*3/uL (4.8-10.8)
[2025-03-29 10:29] LABS: Hemoglobin A1C 162.6584 umol/L; Total Hemoglobin (HGBA1C) 3109.1481 umol/L
[2025-03-29 10:30] LABS: Alanine Aminotransferase 11 U/L (0-31); Anion Gap 14 (12-20); Aspartate Amino Transferase 21 U/L (5-31); Blood Urea Nitrogen 55 mg/dL (9-16); Calcium 9.1 mg/dL (8.4-10.2); Carbon Dioxide 26 mmol/L (22-29); Chloride 103 mmol/L (96-108); Cholesterol 131 mg/dL (<200); Estimated Glomerular Filt Rate 32; HDL Cholesterol 31 mg/dL (>40); Iron 47 mcg/dL (30-160); Percent Iron Saturation 17 % (15-50); Potassium 3.7 mmol/L (3.3-5.1); Sodium 139 mmol/L (135-145); Total Iron Binding Capacity 279 mcg/dL (228-428); Triglycerides 139 mg/dL (<150); Unsaturated Iron Binding 232 ug/dL
== END 2025-03-29 06:44 | disposition home or self-care (01) ==
LOC: HO.HMGCLDS 06:43
PROVIDERS: PCP Internal Medicine; Visit Provider Internal Medicine
DX: I10 Essential (primary) hypertension (principal); E78.2 Mixed hyperlipidemia; E11.29 Type 2 diabetes mellitus with other diabetic kidney complication; R80.9 Proteinuria, unspecified; M19.90 Unspecified osteoarthritis, unspecified site
CPT/HCPCS: 36415; 80048; 80061; 83036; 83540; 84450; 84460; 85025

== ENCOUNTER 2025-04-04 10:44 | Outpatient (AMB) | payer MEDICARE, MEDICAID, SELFPAY ==
[2025-04-04 10:53] VITALS: BP 142/60; PULSE 72; RESP 16; TEMP 36.7; O2SAT 97; BMI 26.7
--- NOTE | 2025-04-04 10:53 | MHC.PC.OV ---
Vital Signs 04/04/25 10:53 Height 5 ft 3 in Weight 151 lb BMI 26.7 BP 142/60 H Blood Pressure Location Lt brachial Position Sitting Respiration 16 Pulse 72 Pulse Source Pulse Oximeter Temp 98.0 F Temp Source Oral Pulse Oximetry (%) 97 Oxygen Delivery Method Room Air Intake Visit Reasons: 4m follow up Intake Note: Pt is here today for her 4mo. f/u Allergies No Known Allergies Allergy (Verified 04/08/25 22:02) Medication List - Last Reconciled 04/08/25 by Genie Lynne MD atorvastatin 10 mg PO DAILY blood sugar diagnostic (FreeStyle Lite Strips) USE TO TEST DIRECTED ONCE DAILY (E11.9) blood sugar diagnostic (FreeStyle Lite Strips) Check fasting blood sugar twice a day before meals brimonidine 0.2% 1 drp ophthalmic (eye) BID digoxin 250 mcg PO DAILY diltiazem HCl CD 300 mg PO DAILY hydralazine 75 mg (3 x 25 mg) PO TID hydrochlorothiazide 25 mg PO DAILY Jardiance (empagliflozin) 10 mg PO QAM NS lancets As directed multivitamin 1 tab PO DAILY omega-3 fatty acids 1,200 mg PO BID pioglitazone 45 mg PO DAILY repaglinide 4 mg (2 x 2 mg) PO TID 90 days warfarin 5 mg See Protocol PO DAILY Tobacco use date assessed: 04/04/25 Fall risk assessment: No Falls in past year Last assessed Fall Risk: 04/04/25 Dental Screening Dental Screen Date: 04/04/25 Did you have a dental visit in the last 12 months?: No Did you have a dental problem in the last 6 months where you did not have access to dental care?: No Was dental information given to patient?: Patient declined HPI 4m follow up HPI Details 74 year-old lady with history of diabetes mellitus with nephropathy, dyslipidemia, here today for her 4 month follow-up. She has been compliant with taking her medications, and diet. Recent fasting labs showed improvement in her diabetes control now with hemoglobin A1c at 6.9% down from 8% on previous visit. And fasting lipids are within normal limits. 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, without long-term current use of insulin Colonoscopy refused Hyperkalemia Paroxysmal atrial fibrillation Mixed dyslipidemia Essential hypertension Diabetes mellitus with microalbuminuria, without long-term current use of insulin Surgical History History of placement of ear tubes Hx of cholecystectomy Family History Father Unknown family medical history Mother Unknown family medical history Son Mental health disorder Social History Housing: House Alcohol intake: never Patient Tobacco Use Status: Never used Tobacco e-Cigarette/Vaping Use: Never Used service: No Current occupational status: retired Cognitive needs: No Hearing needs: No Vision needs: No Questionnaire Thrive Questionnaire Date Thrive assessed: 11/29/24 Currently or been in a relationship where the following occur: No concerns reported THRIVE Score: 0 EDE-7 AMB Questionnaire EDE-7 Date EDE - 7 assessed: 05/02/24 Source: Developed by Drs. Jeremy Fletcher, Светлана Bess, Garcia Gasca and colleagues, with an educational martir from [employer] Review of Systems Const All systems reviewed & are unremarkable except as noted in HPI and below Physical exam (Primary Care) Vital Signs: Last Vital Signs Temp 98.0 F 04/04/25 10:53 Pulse 72 04/04/25 10:53 Resp 16 04/04/25 10:53 BP 142/60 H 04/04/25 10:53 Pulse Ox 97 04/04/25 10:53 Oxygen Delivery Method Room Air 04/04/25 10:53 BMI result Body Mass Index 26.7 Tobacco/Smoking Status: Tobacco use Status Tobacco use date assessed 04/04/25 04/04/25 11:04 Patient Tobacco Use Status Never used Tobacco 04/04/25 10:55 e-Cigarette/Vaping Use Never Used 04/04/25 10:55 Thrive Assessment: Date of Thrive Assessment Date Thrive assessed 11/29/24 04/04/25 10:55 Currently or been in a relationship where the following occur: No concerns reported Const General: comfortable, no acute distress and alert Orientation/consciousness: patient oriented x3 HENMT Ears: external ears normal General nose exam: Normal external nose present Mouth: moist mucous membranes Eyes General: appearance normal, both eyes and all related structures Conjunctivae: conjunctivae normal Pupils: Equal, round and reactive pupils present EOM: EOMs intact bilaterally Neck Neck: Yes full ROM, Yes no lymphadenopathy and Yes supple Resp Effort & Inspection: normal respiratory effort and able to speak in complete sentences Auscultation: clear to auscultation bilaterally Cardio Rate: regular rate Rhythm: regular rhythm Heart sounds: S1 normal heart sound present and S2 normal heart sound present GI Palpation (GI): Soft to palpation, nontender and no masses Auscultation: normal bowel sounds Skin General skin exam: no rashes or lesions noted Neuro General: patient oriented x3, gait normal, tone normal, moves all extremities, Normal light touch and pain sensation and no focal motor deficits Cranial nerves: Yes CN's II-XII intact bilaterally and Yes Equal, round and reactive pupils present Cognition (Neuro): normal cognition Extrem General: Yes full ROM, Yes no joint enlargement, Yes no clubbing, cyanosis or edema and Yes no calf tenderness Psych Appearance: grossly normal and well kempt Mental Status: mental status grossly normal Speech and movement: Normal speech and movement present Affect: normal affect Attitude: cooperative Thought process: Normal thought process present Thought content: Normal thought content present Results Reviewed Results Reviewed: Name: Carmela Lundberg Age/Sex: 74/F : 1950 Unit#: [id number] Attend Dr: Genie Lynne MD Re03/29/25 Status: DEP REF Location: [facility] Disch: SPEC : [id number] PAPI: 03/29/25 STATUS: COMP REQ : [id number] RECD: 03/29/[address]: Genie Lynne MD COMP: 03/29/25 ENTERED: 03/29/[address]: ORDERED: CBC Auto Diff Test Result Flag Reference WBC 7.0 4.8-10.8 X10*3/uL RBC 4.13 L 4.20-5.50 X10*6/uL HGB 11.7 L 12.0-16.0 g/dl HCT 36.1 L 37.0-47.0 % MCV 87.4 80.0-98.0 fL MCH 28.3 27.0-33.0 pg MCHC 32.4 31.0-35.0 g/dl RDW 16.1 H 11.0-16.0 % PLT 217 160-400 X10*3/uL MPV 12.2 9.4-12.3 fL Neut Pct Auto 73.1 H 45-73 % ImGran Pct Auto 0.4 0.0-0.4 % Lymp Pct Auto 20.2 20-40 % [place] Pct Auto 5.9 2-11 % Eos Pct Auto 0.0 0-4 % Baso Pct Auto 0.4 0-2 % NRBC Pct Auto 0.0 0.0-0.2 /100WBC ANC Neut Abs # 5.1 2.0-8.3 x10*3/uL ImGran Abs Auto 0.03 0.00-0.03 X10*3/uL Lymph Abs Auto 1.4 1.2-4.9 X10*3/uL [place] Abs Auto 0.4 0.1-1.2 X10*3/uL Eos Abs Auto 0.0 0.0-0.4 X10*3/uL Baso Abs Auto 0.0 0.0-0.2 X10*3/uL NRBC Abs Auto 0.000 0.0-0.012 X10*3/uL Name: Carmela Lundberg Age/Sex: 74/F : 1950 Unit#: [id number] Attend Dr: Genie Lynne MD Re03/29/25 Status: DEP REF Location: [facility] Disch: SPEC : [id number] PAPI: 03/29/25 STATUS: COMP REQ : [id number] RECD: 03/29/[address]: Genie Lynne MD COMP: 03/29/25 ENTERED: 03/29/[address]: ORDERED: Met Prof Fast, IRON PROF, AST, ALT, Lipid Panel Test Result Flag Reference Sodium 139 135-145 mmol/L Potassium 3.7 3.3-5.1 mmol/L CL 103 96-108 mmol/L CO2 26 22-29 mmol/L Gap 14 12-20 BUN 55 H 9-16 mg/dL Creat 1.58 H 0.5-1.4 mg/dL eGFR 32 Chronic Kidney Disease: Estimated GFR < 60 mL/min/1.73m2 Severe Kidney Disease: Estimated GFR < 15 mL/min/1.73m2 FBS 110 H 60-99 mg/dL A fasting glucose from 100-125 mg/dl is considered impaired (pre-diabetes). CA 9.1 8.4-10.2 mg/dL Iron 47 30-160 mcg/dL TIBC 279 228-428 mcg/dL Saturation 17 15-50 % UIBC 232 ug/dL AST (GOT) 21 5-31 U/L ALT (GPT) 11 0-31 U/L Triglyceride 139 <150 mg/dL Desirable Triglyceride: less than 150 mg/dL Borderline High Triglyceride 150-199 mg/dL High Triglyceride: 200-499 mg/dL Very High Triglyceride: greater than or equal to 5OO mg/dL Cholesterol 131 <200 mg/dL Desirable Cholesterol: less than 200 mg/dL Borderline High Cholesterol: 200-239 mg/dL High Cholesterol: greater than 239 mg/dL LDL Calculated 73 <100 mg/dL Desirable LDL: less than 100 mg/dL Near Optimal/Above Optimal LDL: 110-129 mg/dL Borderline High LDL: 130-159 mg/dL High LDL: 160-189 mg/dL Very High LDL: greater than or equal to 190 mg/dL HDL 31 L >40 mg/dL Desirable HDL: greater than 40 mg/dL Note: This HDL assay may give artificially low results in patients with liver disease. Laboratory Tests 03/29/25 06:53 Estimat Average Glucose 151 Hemoglobin A1c % 6.9 H Coding Level of Care Code Est Pt Level 4 (82305) Diagnoses Diabetes mellitus with microalbuminuria, without long-term current use of insulin E11.29; R80.9 Mixed dyslipidemia E78.2 Assessment & Plan Assessment & Plan (1) Diabetes mellitus with microalbuminuria, without long-term current use of insulin: Code(s): E11.29 - Type 2 diabetes mellitus with other diabetic kidney complication; R80.9 - Proteinuria, unspecified Category: Medical Plan: Better controlled diabetes mellitus now with a hemoglobin A1c at 6.9%. Continued on Jardiance 10 mg daily in the morning together with pioglitazone 45 mg daily and repaglinide 4 mg 1 tablet 3 times a day with meals. Reinforced importance of following recommended diet and getting regular exercise. Gets yearly diabetes retinopathy screening. Sees Dr. Nicholson (2) Mixed dyslipidemia: Code(s): E78.2 - Mixed hyperlipidemia Category: Medical Plan: Fasting lipids are within normal limits, continued on atorvastatin 10 mg daily Orders: Orders Alanine Aminotransferase 07/28/25 E11.29 - Type 2 diabetes mellitus with other diabetic kidney complication, E78.2 - Mixed hyperlipidemia, R80.9 - Proteinuria, unspecified Aspartate Amino Transferase 07/28/25 E11.29 - Type 2 diabetes mellitus with other diabetic kidney complication, E78.2 - Mixed hyperlipidemia, R80.9 - Proteinuria, unspecified Hemoglobin A1c 07/28/25 E11.29 - Type 2 diabetes mellitus with other diabetic kidney complication, E78.2 - Mixed hyperlipidemia, R80.9 - Proteinuria, unspecified Medications: Refilled Jardiance (empagliflozin) 10 mg PO QAM 90 tabs 4RF NS E11.29 - Type 2 diabetes mellitus with other diabetic kidney complication, N18.30 - Chronic kidney disease, stage 3 unspecified, R80.9 - Proteinuria, unspecified
--- OUTSIDE RECORDS SUMMARY | 2025-04-04 11:46 | XMS_ITS | Clinical Summary ---
Author Organization [facility] Address [address] [place] [address] Phone Care Team Providers Care Play Writer Name Role Phone Dominik Albert MD Primary [...] Hemoglobin A1C 10/23/2023 07/23/2023 Influenza Vaccine (#1) 2025 Hepatitis B Vaccine Aged Out No [...] Hemoglobin A1C 8.4(A) 4.0 - 6.0 07/23/2023 [facility] Provider LAB BLOOD ORDERABLES Elysia l Result from Last 3 Months or Most Recently Relevant to Health Maintenance Insurance [address] [place] [address] Medicare [facility] Medicare [facility] Care Teams Play Writer Relationship Specialty Start Date End Date Dominik Albert MD PCP - General Nephrology 12/27/23
== END 2025-04-04 12:19 | disposition home or self-care (01) ==
LOC: HO.HMCC 10:45
PROVIDERS: PCP Internal Medicine; Visit Provider Internal Medicine
DX: E11.29 Type 2 diabetes mellitus with other diabetic kidney complication (principal); R80.9 Proteinuria, unspecified; E78.2 Mixed hyperlipidemia

== ENCOUNTER → 2025-04-04 10:44 | Outpatient (BNVA) | payer MEDICARE, MEDICAID, SELFPAY | PROVIDERS: PCP Internal Medicine; Visit Provider Internal Medicine | DX: E11.29 Type 2 diabetes mellitus with other diabetic kidney complication (principal); R80.9 Proteinuria, unspecified; E78.2 Mixed hyperlipidemia; Z79.84 Long term (current) use of oral hypoglycemic drugs; Z79.899 Other long term (current) drug therapy | CPT/HCPCS: 99212 ==

== ENCOUNTER 2025-04-06 07:00 | Outpatient (REF) | payer MEDICARE, MEDICAID, SELFPAY ==
--- OUTSIDE RECORDS SUMMARY | 2025-04-06 07:02 | XMS_ITS | Clinical Summary ---
Author Organization [facility] Address [address] [place] [address] Phone Care Team Providers Care Care Professionals Name Role Phone Dominik Albert MD Primary Care Provider [phone] Allergies No known active allergies Medications atorvastatin [...] Hemoglobin A1C 8.4(A) 4.0 - 6.0 07/23/2023 [facility] Provider LAB BLOOD ORDERABLES Elysia l Result from Last 3 Months or Most Recently Relevant to Health Maintenance [address] [place] [address] Medicare [facility] Medicare [facility] Care Teams Care Professionals Relationship Specialty Start Date End Date Dominik Albert MD PCP - General Nephrology 12/27/23
[2025-04-06 11:02] LABS: Anion Gap 14 (12-20); Blood Urea Nitrogen 54 mg/dL (9-16); Calcium 9.4 mg/dL (8.4-10.2); Carbon Dioxide 27 mmol/L (22-29); Chloride 103 mmol/L (96-108); Estimated Glomerular Filt Rate 34; Potassium 3.6 mmol/L (3.3-5.1); Sodium 140 mmol/L (135-145)
== END 2025-04-06 07:01 | disposition home or self-care (01) ==
LOC: HO.HMGCLDS 07:00
PROVIDERS: PCP Internal Medicine; Visit Provider Internal Medicine Cardiovascular Disease
DX: N19 Unspecified kidney failure (principal)
CPT/HCPCS: 36415; 80048

== ENCOUNTER 2025-04-11 10:12 | Outpatient (AMB) | payer MEDICARE, MEDICAID, SELFPAY ==
--- OUTSIDE RECORDS SUMMARY | 2025-04-11 10:44 | XMS_ITS | Clinical Summary ---
Author Organization [facility] Address [address] [place] [address] Phone Care Team Providers Care Tissue Coordinator Name Role Phone Dominik Albert MD Primary Care Provider [phone] Allergies No known active allergies Medications atorvastatin [...] Hemoglobin A1C 8.4(A) 4.0 - 6.0 07/23/2023 [facility] Provider LAB BLOOD ORDERABLES Elysia l Result from Last 3 Months or Most Recently Relevant to Health Maintenance [address] [place] [address] Medicare [facility] Medicare [facility] Care Teams Tissue Coordinator Relationship Specialty Start Date End Date Dominik Albert MD PCP - General Nephrology 12/27/23
--- NOTE | 2025-04-11 11:03 | MHC.OFFVISCO ---
Intake Intake Visit Reasons: Anticoagulation Allergies No Known Allergies Allergy (Verified 04/11/25 10:40) Medication List - Last Reconciled 04/11/25 by Luisa Robbins RN atorvastatin 10 mg PO DAILY blood sugar diagnostic (FreeStyle Lite Strips) USE TO TEST DIRECTED ONCE DAILY (E11.9) blood sugar diagnostic (FreeStyle Lite Strips) Check fasting blood sugar twice a day before meals brimonidine 0.2% 1 drp ophthalmic (eye) BID digoxin 250 mcg PO DAILY diltiazem HCl CD 300 mg PO DAILY hydralazine 75 mg (3 x 25 mg) PO TID hydrochlorothiazide 25 mg PO DAILY Jardiance (empagliflozin) 10 mg PO QAM NS lancets As directed multivitamin 1 tab PO DAILY omega-3 fatty acids 1,200 mg PO BID pioglitazone 45 mg PO DAILY repaglinide 4 mg (2 x 2 mg) PO TID 90 days warfarin 5 mg See Protocol PO DAILY Nursing Note SPOKE WITH GILES (AT 'S OFFICE): SCRIPT FOR SHABNAM CALLED TO PHARMACY WITH INSTRUCTIONS TO BEGIN ON 04/14/25. STOP WARFARIN STARTING TODAY. GOOD UNDERSTANDING OF THESES INSTRUCTIONS BY PT. VERBALIZED. SHE IS AWARE THAT INR'S ARE NO LONGER NECESSARY, AND THAT SHE MAY CALL [facility] AT ANY TIME IF QUESTIONS OR CONCERNS ARISE. Anti-Coag Initial Assessment Social Hx Patient Tobacco Use Status: Never used Tobacco alcohol intake: never Coding Level of Care Code Est Patient Level 1 Diagnoses Current use of anticoagulant therapy Z79.01 Results AMB INR Fingerstick AMB INR Fingerstick 2.9 Last Edit by Luisa Robbins RN on 04/11/25 11:03 Assessment & Plan Assessment & Plan (1) Current use of anticoagulant therapy: Code(s): Z79.01 - rodent exterminator (current) use of anticoagulants Category: Medical
[2025-04-11 15:28] LABS: Prothrombin Time Whole Bld POC 35.2 sec (11.1-13.5); ~PT, ~INR - Anti Coag Clinic 2.9 (0.9-1.1)
== END 2025-04-11 11:10 | disposition home or self-care (01) ==
LOC: HO.ACS 10:12
PROVIDERS: PCP Internal Medicine; Visit Provider Internal Medicine Medical Oncology
DX: Z79.01 Long term (current) use of anticoagulants (principal)

== ENCOUNTER → 2025-04-11 10:12 | Outpatient (BNVA) | payer MEDICARE, MEDICAID, SELFPAY | PROVIDERS: PCP Internal Medicine; Visit Provider Internal Medicine Medical Oncology | DX: I48.20 Chronic atrial fibrillation, unspecified (principal); Z79.01 Long term (current) use of anticoagulants; Z51.81 Encounter for therapeutic drug level monitoring | CPT/HCPCS: 85610; 99211 ==

== ENCOUNTER 2025-04-27 07:43 | Outpatient (REF) | payer MEDICARE, MEDICAID, SELFPAY ==
--- OUTSIDE RECORDS SUMMARY | 2025-04-27 07:45 | XMS_ITS | Clinical Summary ---
Author Organization [facility] Address [address] [place] [address] Phone Care Team Providers Care Lumber Tripper Name Role Phone Dominik Albert MD Primary Care Provider [phone] Allergies No known active allergies Medications atorvastatin [...] Hemoglobin A1C 8.4(A) 4.0 - 6.0 07/23/2023 [facility] Provider LAB BLOOD ORDERABLES Elysia l Result from Last 3 Months or Most Recently Relevant to Health Maintenance [address] [place] [address] Medicare [facility] Medicare [facility] Care Teams Lumber Tripper Relationship Specialty Start Date End Date Dominik Albert MD PCP - General Nephrology 12/27/23
[2025-04-27 11:27] LABS: Anion Gap 11 (12-20); Blood Urea Nitrogen 42 mg/dL (9-16); Calcium 9.2 mg/dL (8.4-10.2); Carbon Dioxide 29 mmol/L (22-29); Chloride 104 mmol/L (96-108); Estimated Glomerular Filt Rate 37; Potassium 4.2 mmol/L (3.3-5.1); Sodium 140 mmol/L (135-145)
== END 2025-04-27 07:44 | disposition home or self-care (01) ==
LOC: HO.HMGCLDS 07:43
PROVIDERS: PCP Internal Medicine; Visit Provider Internal Medicine Hypertension Specialist
DX: N18.4 Chronic kidney disease, stage 4 (severe) (principal)
CPT/HCPCS: 36415; 80048

== ENCOUNTER 2025-05-01 10:09 | Outpatient (AMB) | payer MEDICARE, MEDICAID, SELFPAY ==
[2025-05-01 10:37] VITALS: BP 152/44; PULSE 79; O2SAT 97; BMI 26.4
--- NOTE | 2025-05-01 10:37 | HO.NEPHOV_ITS ---
Vital Signs 05/01/25 10:37 05/01/25 10:49 Height 5 ft 3 in Weight 149 lb BMI 26.4 BP 152/44 H 140/50 H Blood Pressure Location Rt brachial Rt brachial Position Sitting Sitting Pulse 79 Pulse Source Pulse Oximeter Pulse Oximetry (%) 97 Oxygen Delivery Method Room Air Intake Visit Reasons: April FU/ Conf Veneer Jointer Operator Required: No Accompanied by: Self / Same As Patient Allergies No Known Allergies Allergy (Verified 05/01/25 10:40) Medication List - Last Reconciled 05/01/25 by Ranjan Irvin MD apixaban (Eliquis) 5 mg PO BID atorvastatin 10 mg PO DAILY blood sugar diagnostic (FreeStyle Lite Strips) USE TO TEST DIRECTED ONCE DAILY (E11.9) blood sugar diagnostic (FreeStyle Lite Strips) Check fasting blood sugar twice a day before meals brimonidine 0.2% 1 drp ophthalmic (eye) BID digoxin 250 mcg PO DAILY diltiazem HCl CD 300 mg PO DAILY hydralazine 75 mg (3 x 25 mg) PO TID hydrochlorothiazide 25 mg PO DAILY Jardiance (empagliflozin) 10 mg PO QAM NS lancets As directed multivitamin 1 tab PO DAILY omega-3 fatty acids 1,200 mg PO BID pioglitazone 45 mg PO DAILY repaglinide 4 mg (2 x 2 mg) PO TID 90 days HPI Comments Details: And is a pleasant 73-year-old woman with a history of hypertension diabetes has been obesity. She was stage III CKD. Recent creatinine is around 1.17 mg/dL She is here for further follow up urine CKD. She continues to have some shortness of breath on exertion however did this improves with some fluid intake. No significant edema no urinary symptoms. 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, without long-term current use of insulin Colonoscopy refused Hyperkalemia Paroxysmal atrial fibrillation Mixed dyslipidemia Essential hypertension Diabetes mellitus with microalbuminuria, without long-term current use of insulin Surgical History History of placement of ear tubes Hx of cholecystectomy Family History Father Unknown family medical history Mother Unknown family medical history Son Mental health disorder Social History Housing: House Alcohol intake: never Patient Tobacco Use Status: Never used Tobacco e-Cigarette/Vaping Use: Never Used service: No Current occupational status: retired Cognitive needs: No Hearing needs: No Vision needs: No Physical Exam Vital Signs: Last Vital Signs Pulse 79 05/01/25 10:37 BP 140/50 H 05/01/25 10:49 Pulse Ox 97 05/01/25 10:37 Oxygen Delivery Method Room Air 05/01/25 10:37 BMI result Body Mass Index 26.4 Const General: comfortable; No acute distress Orientation/consciousness: patient oriented x3 Eyes General: appearance normal, both eyes and all related structures Visual Jon: normal visual jon by confrontation Neck Neck: Yes supple and Yes no JVD Resp Effort & Inspection: normal respiratory effort and respiratory effort not decr eased Cardio Palpation: no palpable S3 and no palpable S4 Heart sounds: no rubs GI Inspection: Yes normal to inspection Palpation (GI): Soft to palpation Percussion: Yes normal to percussion Auscultation: normal bowel sounds General: Yes no CVA tenderness Back/Spine/Pelvis Back: no CVA tenderness Skin General skin exam: no petechiae and no purpura Neuro General: patient oriented x3 and no focal motor deficits Extrem General: No clubbing and No edema Results Reviewed Nephrology Results: Hgb, (12.0-16.0) 11.7 g/dl L 03/29/25 WBC, (4.8-10.8) 7.0 X10*3/uL 03/29/25 Plt Count, (160-400) 217 X10*3/uL 03/29/25 Sodium, (135-145) 140 mmol/L 04/27/25 Potassium, (3.3-5.1) 4.2 mmol/L 04/27/25 Chloride, (96-108) 104 mmol/L 04/27/25 Carbon Dioxide, (22-29) 29 mmol/L 04/27/25 BUN, (9-16) 42 mg/dL H 04/27/25 Creatinine, (0.5-1.4) 1.40 mg/dL 04/27/25 Calcium, (8.4-10.2) 9.2 mg/dL 04/27/25 Renal US 04/27/22 Assessment & Plan Assessment & Plan (1) CKD (chronic kidney disease) stage 3, GFR 30-59 ml/min: Code(s): N18.30 - Chronic kidney disease, stage 3 unspecified Category: Medical (2) Essential hypertension: Code(s): I10 - Essential (primary) hypertension Category: Medical (3) Diabetes mellitus with microalbuminuria, without long-term current use of insulin: Code(s): E11.29 - Type 2 diabetes mellitus with other diabetic kidney complication; R80.9 - Proteinuria, unspecified Category: Medical Plan . Lupe is a pleasant 74-year-old woman with a history of longstanding hypertension diabetes mellitus with CKD. Renal function is close to baseline. currenly 1.4 with eGFR of 37 ml/mt Clinically she is euvolemic. Blood pressure is better controlled. Keep hydralazine 75 mg 3 times a day. Encouraged her to stay on low-sodium diet. DM OK to use Metformin If eGFR is < 30 ml/mt, would avoid Metformin Agree with Jardiance . Orders: Orders Basic Metabolic Panel 4 Months N18.30 - Chronic kidney disease, stage 3 unspecified Coding Level of Care Code Est Pt Level 4 (11317) Diagnoses CKD (chronic kidney disease) stage 3, GFR 30-59 ml/min N18.30 Essential hypertension I10 Diabetes mellitus with microalbuminuria, without long-term current use of insulin E11.29; R80.9
--- OUTSIDE RECORDS SUMMARY | 2025-05-01 10:42 | XMS_ITS | Clinical Summary ---
Author Organization [facility] Address [address] [place] [address] Phone Care Team Providers Care Auto Service Dispatcher Name Role Phone Dominik Albert MD Primary Care Provider [phone] Allergies No known active allergies Medications atorvastatin [...] Hemoglobin A1C 8.4(A) 4.0 - 6.0 07/23/2023 [facility] Provider LAB BLOOD ORDERABLES Elysia l Result from Last 3 Months or Most Recently Relevant to Health Maintenance Insurance [address] [place] [address] Medicare [facility] Medicare [facility] Care Teams Auto Service Dispatcher Relationship Specialty Start Date End Date Dominik Albert MD PCP - General Nephrology 12/27/23
[2025-05-01 10:49] VITALS: BP 140/50
== END 2025-05-01 10:53 | disposition home or self-care (01) ==
LOC: HO.HKA 10:10
PROVIDERS: PCP Internal Medicine; Visit Provider Internal Medicine Hypertension Specialist
DX: N18.30 Chronic kidney disease, stage 3 unspecified (principal); I10 Essential (primary) hypertension; E11.29 Type 2 diabetes mellitus with other diabetic kidney complication; R80.9 Proteinuria, unspecified
CPT/HCPCS: 99214

== ENCOUNTER → 2025-05-01 10:09 | Outpatient (BNVA) | payer MEDICARE, MEDICAID, SELFPAY | PROVIDERS: PCP Internal Medicine; Visit Provider Internal Medicine Hypertension Specialist | DX: I10 Essential (primary) hypertension (principal); N18.30 Chronic kidney disease, stage 3 unspecified; E11.29 Type 2 diabetes mellitus with other diabetic kidney complication; R80.9 Proteinuria, unspecified | CPT/HCPCS: 99212 ==

== ENCOUNTER 2025-08-06 08:20 | Outpatient (REF) | payer MEDICARE, MEDICAID, SELFPAY ==
--- OUTSIDE RECORDS SUMMARY | 2025-08-06 08:43 | XMS_ITS | Encounter Summary ---
Author Organization [facility] Address [address] [place] [address] Phone Care Team Providers Care Tinsel Machine Operator Name Role Phone Dominik Albert MD Primary Care Provider [phone] Encounter Details Date Type Department Care Team (Late st Contact Info) Description 06/30/2022 Telephone [facility] [address] [place] [address] Mony Donovan Social History Tobacco [...] Stage 3B means please call her at [phone] documented in this encounter Plan of Treatment Not on file documented as of this encounter Visit Diagnoses Not on filedocumented in this encounter Care Teams Tinsel Machine Operator Relationship Specialty Start Date End Date Dominik Albert MD PCP - General Nephrology 12/27/23 documented as of this encounter
--- OUTSIDE RECORDS SUMMARY | 2025-08-06 08:43 | XMS_ITS | Clinical Summary ---
Author Organization [facility] Address [address] [place] [address] Phone Care Team Providers Care General Matcher Name Role Phone Dominik Albert MD Primary Care Provider [phone] Allergies No known active allergies Medications atorvastatin [...] Health Maintenance Due Date Last Done Comments Pneumococcal Vaccine: 50+ Ye ars (1 of 2 - PCV) 1969 Diabetes: Ophthalmology Exam 03/04/2022 Diabetes: Pedal Pulse [...] Hemoglobin A1C 8.4(A) 4.0 - 6.0 07/23/2023 Historical Provider LAB BLOOD ORDERABLES Elysia l Result from Last 3 Months or Most Recently Relevant to Health Maintenance Insurance [address] [place] [address] Medicare [facility] Medicare [facility] Care Teams General Matcher Relationship Specialty Start Date End Date Dominik Albert MD PCP - General Nephrology 12/27/23
[2025-08-06 11:11] LABS: Alanine Aminotransferase 11 U/L (0-31); Anion Gap 14 (12-20); Aspartate Amino Transferase 22 U/L (5-31); Blood Urea Nitrogen 52 mg/dL (9-16); Calcium 9.4 mg/dL (8.4-10.2); Carbon Dioxide 25 mmol/L (22-29); Chloride 104 mmol/L (96-108); Estimated Glomerular Filt Rate 33; Potassium 3.5 mmol/L (3.3-5.1); Sodium 139 mmol/L (135-145)
== END 2025-08-06 08:21 | disposition home or self-care (01) ==
LOC: HO.HMGCLDS 08:20
PROVIDERS: Absent Provider Internal Medicine Hypertension Specialist; PCP Internal Medicine; Visit Provider Internal Medicine
DX: E11.22 Type 2 diabetes mellitus with diabetic chronic kidney disease (principal); N18.30 Chronic kidney disease, stage 3 unspecified; E78.2 Mixed hyperlipidemia; R80.9 Proteinuria, unspecified
CPT/HCPCS: 36415; 80048; 83036; 84450; 84460

== ENCOUNTER 2025-08-09 10:59 | Outpatient (AMB) | payer MEDICARE, MEDICAID, SELFPAY ==
--- NOTE | 2025-08-09 11:34 | A.OFFPC_ITS ---
Vital Signs 08/09/25 11:38 Height 5 ft 3 in Weight 148 lb BMI 26.2 BP 140/52 H Blood Pressure Location Rt brachial Position Sitting Respiration 16 Pulse 72 Pulse Source Pulse Oximeter Temp 98.0 F Temp Source Oral Pulse Oximetry (%) 96 Oxygen Delivery Method Room Air Intake Visit Reasons: 4m follow up - see comments Intake Note: Pt is here today for her 4mo. Faculty Head Required: No Allergies No Known Allergies Allergy (Verified 08/19/25 14:21) Medication List - Last Reconciled 08/09/25 by Genie Lynne MD apixaban (Eliquis) 5 mg PO BID atorvastatin 10 mg PO DAILY blood sugar diagnostic (FreeStyle Lite Strips) Check fasting blood sugar once a day before a meal brimonidine 0.2% 1 drp ophthalmic (eye) BID digoxin 250 mcg PO DAILY diltiazem HCl CD 300 mg PO DAILY hydralazine 75 mg (3 x 25 mg) PO TID hydrochlorothiazide 25 mg PO DAILY Jardiance (empagliflozin) 10 mg PO QAM NS lancets As directed multivitamin 1 tab PO DAILY omega-3 fatty acids 1,200 mg PO BID pioglitazone 45 mg PO DAILY repaglinide 4 mg (2 x 2 mg) PO TID 90 days Tobacco use date assessed: 08/09/25 Fall risk assessment: No Falls in past year Last assessed Fall Risk: 08/09/25 Dental Screening Dental Screen Date: 08/09/25 Did you have a dental visit in the last 12 months?: Yes Did you have a dental problem in the last 6 months where you did not have access to dental care?: No Was dental information given to patient?: Patient has dentist HPI 4m follow up - see comments HPI Details 75-year-old female presenting for a [facility] low up visit. She has type 2 diabetes mellitus, with latest HbA1c at 7.3. Her current diabetes medications include Jardiance 10 mg and repaglinide, which is prescribed three times a day before meals. She reports inconsistent adherence, admitting to frequently forgetting to take the repaglinide. She also acknowledges occasional dietary indiscretions, including consumption of ice cream and pastries. The patient is also on atorvastatin for hyperlipidemia, and her last cholesterol results were good. She sees a food and beverage lead, Dr. Mireles, who is closing his local office,now has a new patient appointment scheduled with Dr. Champion on September 10. She already received her flu, RSV, and shingles vaccines. She received a COVID- 19 vaccine last year. Her eye exam was normal with no diabetic retinopathy noted. 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, without long-term current use of insulin Colonoscopy refused Hyperkalemia Paroxysmal atrial fibrillation Mixed dyslipidemia Essential hypertension Diabetes mellitus with microalbuminuria, without long-term current use of insulin Surgical History History of placement of ear tubes Hx of cholecystectomy Family History Father Unknown family medical history Mother Unknown family medical history Son Mental health disorder Social History Housing: House Alcohol intake: never Patient Tobacco Use Status: Never used Tobacco e-Cigarette/Vaping Use: Never Used service: No Current occupational status: retired Cognitive needs: No Hearing needs: No Vision needs: No Questionnaire PHQ-9 Over the last 2 weeks, how often have you been bothered by any of the following problems? 1. Little interest or pleasure in doing things: not at all 2. Feeling down, depressed, or hopeless: not at all 3. Trouble falling or staying asleep, or sleeping too much: not at all 4. Feeling tired or having little energy: not at all 5. Poor appetite or overeating: not at all 6. Feeling bad about yourself - or that you are a failure or have let yourself or your family down: not at all 7. Trouble concentrating on things, such as reading the newspaper or watching television: not at all 8. Moving or speaking so slowly that other people could have noticed. Or the opposite - being so fidgety or restless that you have been moving around a lot more than usual: not at all 9. Thoughts that you would be better off or of hurting yourself in some way: not at all Total score: 0 Depression Screening Interpretation: Negative Depression Screening Done: Yes Source: Developed by Drs. Jeremy Fletcher, Светлана Bess, Garcia Gasca and colleagues, with an educational martir from [employer]. Thrive Questionnaire Date Thrive assessed: 11/29/24 I am a: Patient What is your living situation today?: I have a steady place to live Within the past 12 months, did the food you bought not last and you didn't have the money to get more?: Never true Within the past 12 months, did you worry whether your food would run out before you got money to buy more?: Never true Do you have trouble paying for medicines?: No Do you have trouble getting transportation to medical appointments?: No Do you have trouble paying your heating and electricity bill?: No Do you have trouble taking care of your child, family member or friend?: No Do you have trouble with day-to-day activities such as bathing, preparing meals, shopping, managing finances, etc.?: No Are you currently unemployed and looking for a job?: No Are you interested in more education?: No Currently or been in a relationship where the following occur: No concerns reported THRIVE Score: 0 AUDIT C Alcohol Use Questionnaire (AUDIT-C) 1. How often do you have a drink containing alcohol?: Never Total Score: 0 EDE-7 AMB Questionnaire EDE-7 Date EDE - 7 assessed: 08/09/25 Feeling nervous, anxious, or on edge: 0 = Not at all Not being able to stop or control worryin = Not at all Worrying too much about different things: 0 = Not at all Trouble relaxin = Not at all Being so restless that it is hard to sit still: 0 = Not at all Becoming easily annoyed or irritable: 0 = Not at all Feeling afraid as if something awful might happen: 0 = Not at all Total EDE-7 score (0-4 normal; 5-9 mild; 10-14 moderate; 15-21 severe): 0 Source: Developed by Drs. Jeremy Fletcher, Garcia Bynum and colleagues, with an educational martir from [employer]. EDE-7 Assessment Billing EDE-7 Assessment Tool: EDE-7 Assessment 51768 Review of Systems Const All systems reviewed & are unremarkable except as noted in HPI and below Denies fatigue, Denies fever(s), Denies headache(s) and Denies weakness Eyes Denies change in vision ENT Denies dizziness, Denies headache(s), Denies nasal congestion, Denies nasal discharge and Denies sore throat Card Details: Sees Dr. Mireles Denies chest pain, Denies lightheadedness, Denies palpitations and Denies dyspnea Resp Denies chest congestion, Denies cough, Denies dyspnea and Denies wheezing GI Denies abdominal pain, Denies change in bowel habits and Denies heartburn Denies urinary frequency, Denies dysuria and Denies urinary urgency Musc Reports no additional complaints Neuro Denies dizziness, Denies headache(s) and Denies weakness Psych Reports no additional complaints Endo Denies fatigue, Denies polydipsia, Denies polyuria and Denies palpitations Jose/Lymph Denies easy bruising Aller/Immun Denies seasonal rhinorrhea and Denies wheezing Physical exam (Primary Care) Vital Signs: Last Vital Signs Temp 98.0 F 08/09/25 11:38 Pulse 72 08/09/25 11:38 Resp 16 08/09/25 11:38 BP 140/52 H 08/09/25 11:38 Pulse Ox 96 08/09/25 11:38 Oxygen Delivery Method Room Air 08/09/25 11:38 BMI result Body Mass Index 26.2 Tobacco/Smoking Status: Tobacco use Status Tobacco use date assessed 08/09/25 08/09/25 11:44 Patient Tobacco Use Status Never used Tobacco 08/09/25 11:35 e-Cigarette/Vaping Use Never Used 08/09/25 11:35 PHQ-9: PHQ-9 Score PHQ-9: Total score 0 08/09/25 11:58 Depression Screening Interpretation: Negative Thrive Assessment: Date of Thrive Assessment Date Thrive assessed 11/29/24 08/09/25 11:35 Currently or been in a relationship where the following occur: No concerns reported Const General: comfortable, no acute distress and alert Orientation/consciousness: patient oriented x3 HENMT Ears: external ears normal General nose exam: Normal external nose present Mouth: moist mucous membranes Eyes General: appearance normal, both eyes and all related structures Conjunctivae: conjunctivae normal Pupils: Equal, round and reactive pupils present EOM: EOMs intact bilaterally Neck Neck: Yes full ROM, Yes no lymphadenopathy and Yes supple Resp Effort & Inspection: normal respiratory effort and able to speak in complete sentences Auscultation: clear to auscultation bilaterally Cardio Rate: regular rate Rhythm: regular rhythm Heart sounds: S1 normal heart sound present and S2 normal heart sound present GI Palpation (GI): Soft to palpation, nontender and no masses Auscultation: normal bowel sounds Skin General skin exam: no rashes or lesions noted Neuro General: patient oriented x3, gait normal, tone normal, moves all extremities, Normal light touch and pain sensation and no focal motor deficits Cranial nerves: Yes CN's II-XII intact bilaterally and Yes Equal, round and reactive pupils present Cognition (Neuro): normal cognition Extrem General: Yes full ROM, Yes no joint enlargement, Yes no clubbing, cyanosis or edema and Yes no calf tenderness Psych Appearance: grossly normal and well kempt Mental Status: mental status grossly normal Speech and movement: Normal speech and movement present Affect: normal affect Results Reviewed Results Reviewed: Laboratory Tests 08/06/25 08:30 Estimat Average Glucose 163 Hemoglobin A1c % 7.3 H anibal: Carmela Lundberg Age/Sex: 75/F : 1950 Unit#: [id number] Attend Dr: Genie Lynne MD Re08/06/25 Status: DEP REF Location: [facility] Disch: SPEC : [id number] PAPI: 08/06/25 STATUS: COMP REQ : [id number] RECD: 08/06/[address]: Ranjan Irvin MD COMP: 08/06/25 ENTERED: 08/06/[address]: Genie Lynne MD ORDERED: BMP, AST, ALT Test Result Flag Reference Sodium 139 135-145 mmol/L Potassium 3.5 3.3-5.1 mmol/L CL 104 96-108 mmol/L CO2 25 22-29 mmol/L Gap 14 12-20 BUN 52 H 9-16 mg/dL Creat 1.52 H 0.5-1.4 mg/dL eGFR 33 Chronic Kidney Disease: Estimated GFR < 60 mL/min/1.73m2 Severe Kidney Disease: Estimated GFR < 15 mL/min/1.73m2 Glucose, Random 154 H 60-115 mg/dL CA 9.4 8.4-10.2 mg/dL AST (GOT) 22 5-31 U/L ALT (GPT) 11 0-31 U/L Coding Level of Care Code Est Pt Level 4 (37230) Complex visit Add On G2211 Diagnoses Diabetes mellitus with microalbuminuria, without long-term current use of insulin E11.29; R80.9 Mixed dyslipidemia E78.2 Additional Codes EDE-7 Assessment Billing - EDE-7 Assessment Tool: EDE-7 Assessment 92243 ([id number]) Assessment & Plan Assessment & Plan (1) Diabetes mellitus with microalbuminuria, without long-term current use of insulin: Code(s): E11.29 - Type 2 diabetes mellitus with other diabetic kidney complication; R80.9 - Proteinuria, unspecified Category: Medical Plan: The patient's HbA1c is elevated at 7.3, above the goal of <6.5. This is likely contributed by medication non-adherence with repaglinide and dietary indiscretions. The plan is to increase Jardiance from 10 mg to 25 mg daily. A 90-day prescription will be sent to her preferred pharmacy. The patient will continue repaglinide and pioglitazone 45 mg daily. She will follow up in 3 months, at the end of November, with blood work to be completed beforehand to re-evaluate her glycemic control. (2) Mixed dyslipidemia: Code(s): E78.2 - Mixed hyperlipidemia Category: Medical Plan: Continue atorvastatin 10 mg daily Orders: Orders Hemoglobin A1c 3 Months E78.2 - Mixed hyperlipidemia, E11.29 - Type 2 diabetes mellitus with other diabetic kidney complication, R80.9 - Proteinuria, unspecified Lipid Panel 3 Months E78.2 - Mixed hyperlipidemia, E11.29 - Type 2 diabetes mellitus with other diabetic kidney complication, R80.9 - Proteinuria, unspecified Complete Blood Count Auto Diff 3 Months E78.2 - Mixed hyperlipidemia, E11.29 - Type 2 diabetes mellitus with other diabetic kidney complication, R80.9 - Proteinuria, unspecified Alanine Aminotransferase 3 Months E78.2 - Mixed hyperlipidemia, E11.29 - Type 2 diabetes mellitus with other diabetic kidney complication, R80.9 - Proteinuria, unspecified Vitamin D 25-OH Total 3 Months E78.2 - Mixed hyperlipidemia, E11.29 - Type 2 diabetes mellitus with other diabetic kidney complication, R80.9 - Proteinuria, unspecified Aspartate Amino Transferase 3 Months E78.2 - Mixed hyperlipidemia, E11.29 - Type 2 diabetes mellitus with other diabetic kidney complication, R80.9 - Proteinuria, unspecified Medications: Changed From Jardiance 10 mg PO QAM 90 tabs 4RF NS N18.30 - Chronic kidney disease, stage 3 unspecified, E11.29 - Type 2 diabetes mellitus with other diabetic kidney complication, R80.9 - Proteinuria, unspecified To Jardiance (empagliflozin) 25 mg PO QAM 90 tabs 4RF NS N18.30 - Chronic kidney disease, stage 3 unspecified, E11.29 - Type 2 diabetes mellitus with other diabetic kidney complication, R80.9 - Proteinuria, unspecified
[2025-08-09 11:38] VITALS: BP 140/52; PULSE 72; RESP 16; TEMP 36.7; O2SAT 96; BMI 26.2
--- OUTSIDE RECORDS SUMMARY | 2025-08-09 13:43 | XMS_ITS | Clinical Summary ---
Author Organization [facility] Address [address] [place] [address] Phone Care Team Providers Care Chemical Dependency Attendant Name Role Phone Dominik Albert MD Primary Care Provider [phone] Allergies No known active allergies Medications atorvastatin [...] Relevant to Health Maintenance Insurance [id number] [id number] Medicare [facility] Medicare [facility] Care Teams Chemical Dependency Attendant Relationship Specialty Start Date End Date Dominik Albert MD PCP - General Nephrology 12/27/23
--- OUTSIDE RECORDS SUMMARY | 2025-08-09 13:43 | XMS_ITS | Encounter Summary ---
Author Organization [facility] Address [address] [place] [address] Phone Care Team Providers Care Microstrategy Bi Developer Name Role Phone Dominik Albert MD Primary Care Provider [phone] Encounter Details Date Type Department Care Team (Late st Contact Info) Description 06/30/2022 Telephone [facility] [address] [place] [address] Mony Donovan Social History Tobacco [...] Stage 3B means please call her at [phone] documented in this encounter Plan of Treatment Not on file documented as of this encounter Visit Diagnoses Not on filedocumented in this encounter Care Teams Microstrategy Bi Developer Relationship Specialty Start Date End Date Dominik Albert MD PCP - General Nephrology 12/27/23 documented as of this encounter
== END 2025-08-09 12:11 | disposition home or self-care (01) ==
LOC: HO.HMCC 11:00
PROVIDERS: PCP Internal Medicine; Visit Provider Internal Medicine
DX: E11.29 Type 2 diabetes mellitus with other diabetic kidney complication (principal); R80.9 Proteinuria, unspecified; E78.2 Mixed hyperlipidemia

== ENCOUNTER → 2025-08-09 10:59 | Outpatient (BNVA) | payer MEDICARE, MEDICAID, SELFPAY | PROVIDERS: PCP Internal Medicine; Visit Provider Internal Medicine | DX: E11.29 Type 2 diabetes mellitus with other diabetic kidney complication (principal); E11.22 Type 2 diabetes mellitus with diabetic chronic kidney disease; R80.9 Proteinuria, unspecified; E78.2 Mixed hyperlipidemia; N18.30 Chronic kidney disease, stage 3 unspecified; Z79.899 Other long term (current) drug therapy | CPT/HCPCS: 96127; 99212 ==

== ENCOUNTER 2025-08-14 11:11 | Outpatient (AMB) | payer MEDICARE, MEDICAID, SELFPAY ==
--- NOTE | 2025-08-14 11:26 | HO.NEPHOV_ITS ---
Vital Signs 08/14/25 11:27 Height 5 ft 3 in Weight 149 lb BMI 26.4 BP 170/52 H Blood Pressure Location Lt brachial Position Sitting Pulse 72 Pulse Source Pulse Oximeter Pulse Oximetry (%) 97 Oxygen Delivery Method Room Air Intake Visit Reasons: FU Channel Marketing Specialist Required: No Accompanied by: Self / Same As Patient Allergies No Known Allergies Allergy (Verified 08/14/25 11:29) Medication List - Last Reconciled 08/14/25 by Ranjan Irvin MD apixaban (Eliquis) 5 mg PO BID atorvastatin 10 mg PO DAILY blood sugar diagnostic (FreeStyle Lite Strips) Check fasting blood sugar once a day before a meal brimonidine 0.2% 1 drp ophthalmic (eye) BID digoxin 250 mcg PO DAILY diltiazem HCl CD 300 mg PO DAILY hydralazine 75 mg (3 x 25 mg) PO TID hydrochlorothiazide 25 mg PO DAILY Jardiance (empagliflozin) 25 mg PO QAM NS lancets As directed multivitamin 1 tab PO DAILY omega-3 fatty acids 1,200 mg PO BID pioglitazone 45 mg PO DAILY repaglinide 4 mg (2 x 2 mg) PO TID 90 days HPI Comments Details: And is a pleasant 73-year-old woman with a history of hypertension diabetes has been obesity. She was stage III CKD. Recent creatinine is around 1.17 mg/dL She is here for further follow up urine CKD. She continues to have some shortness of breath on exertion however did this improves with some fluid intake. No significant edema no urinary symptoms. 12/05/24 Overall doing well ;Jardiance has been added recently 08/14/25 The patient is a 75-year-old female presenting for a follow-up visit for chronic kidney disease and hypertension. She reports that her blood pressure fluctuates, noting a recent reading of 148/52 mmHg with another provider. Her antihypertensive medication regimen includes diltiazem 300 mg, hydrochlorothiazide, and hydralazine. Regarding the hydralazine, she is taking one 25 mg pill three times a day, though the prescription on file is for 75 mg three times a day. The patient reports feeling stressed and believes it contributes to her elevated blood pressure. 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, without long-term current use of insulin Colonoscopy refused Hyperkalemia Paroxysmal atrial fibrillation Mixed dyslipidemia Essential hypertension Diabetes mellitus with microalbuminuria, without long-term current use of insulin Surgical History History of placement of ear tubes Hx of cholecystectomy Family History Father Unknown family medical history Mother Unknown family medical history Son Mental health disorder Social History Housing: House Alcohol intake: never Patient Tobacco Use Status: Never used Tobacco e-Cigarette/Vaping Use: Never Used service: No Current occupational status: retired Cognitive needs: No Hearing needs: No Vision needs: No Physical Exam Vital Signs: Last Vital Signs Pulse 72 08/14/25 11:27 BP 170/52 H 08/14/25 11:27 Pulse Ox 97 08/14/25 11:27 Oxygen Delivery Method Room Air 08/14/25 11:27 BMI result Body Mass Index 26.4 Comfortable Neck supple no JVD. Lungs entry equal no rales. Heart S1-S2 heard no gallop or rub. Abdomen soft nontender. Neuro alert awake oriented. No asterixis. Extremities no edema. Const General: comfortable; No acute distress Orientation/consciousness: patient oriented x3 Eyes General: appearance normal, both eyes and all related structures Visual Jon: normal visual jon by confrontation Neck Neck: Yes supple and Yes no JVD Resp Effort & Inspection: normal respiratory effort and respiratory effort not decreased Cardio Palpation: no palpable S3 and no palpable S4 Heart sounds: no rubs GI Inspection: Yes normal to inspection Palpation (GI): Soft to palpation Percussion: Yes normal to percussion Auscultation: normal bowel sounds General: Yes no CVA tenderness Back/Spine/Pelvis Back: no CVA tenderness Skin General skin exam: no petechiae and no purpura Neuro General: patient oriented x3 and no focal motor deficits Extrem General: No clubbing and No edema Results Reviewed Nephrology Results: Hgb, (12.0-16.0) 11.7 g/dl L 03/29/25 WBC, (4.8-10.8) 7.0 X10*3/uL 03/29/25 Plt Count, (160-400) 217 X10*3/uL 03/29/25 Sodium, (135-145) 139 mmol/L 08/06/25 Potassium, (3.3-5.1) 3.5 mmol/L 08/06/25 Chloride, (96-108) 104 mmol/L 08/06/25 Carbon Dioxide, (22-29) 25 mmol/L 08/06/25 BUN, (9-16) 52 mg/dL H 08/06/25 Creatinine, (0.5-1.4) 1.52 mg/dL H 08/06/25 Calcium, (8.4-10.2) 9.4 mg/dL 08/06/25 Renal US 04/27/22 Assessment & Plan Assessment & Plan (1) CKD (chronic kidney disease) stage 3, GFR 30-59 ml/min: Code(s): N18.30 - Chronic kidney disease, stage 3 unspecified Category: Medical (2) Essential hypertension: Code(s): I10 - Essential (primary) hypertension Category: Medical (3) Diabetes mellitus with microalbuminuria, without long-term current use of insulin: Code(s): E11.29 - Type 2 diabetes mellitus with other diabetic kidney complication; R80.9 - Proteinuria, unspecified Category: Medical Plan . uLpe is a pleasant 75-year-old woman with a history of longstanding hypertension diabetes mellitus with CKD. Renal function is close to baseline. currenly 1.4 with eGFR of 37 ml/mt Clinically she is euvolemic. Blood pressure is sub optimal HAs been takin Hydralazine 25 mg TID instead of 75 mg TID CHange hydralazine 50 mg 3 times a day. Encouraged her to stay on low-sodium diet. DM OK to use Metformin If eGFR is < 30 ml/mt, would avoid Metformin Agree with Jardiance . Orders: Orders Basic Metabolic Panel 3 Months N18.30 - Chronic kidney disease, stage 3 unspecified Medications: Changed From hydralazine 75 mg (3 x 25 mg) PO TID 810 tabs 1RF To hydralazine 50 mg PO TID 90 tabs 1RF Coding Level of Care Code Est Pt Level 4 (60844) Diagnoses CKD (chronic kidney disease) stage 3, GFR 30-59 ml/min N18.30 Essential hypertension I10 Diabetes mellitus with microalbuminuria, without long-term current use of insulin E11.29; R80.9
[2025-08-14 11:27] VITALS: BP 170/52; PULSE 72; O2SAT 97; BMI 26.4
== END 2025-08-14 11:42 | disposition home or self-care (01) ==
LOC: HO.HKA 11:12
PROVIDERS: PCP Internal Medicine; Visit Provider Internal Medicine Hypertension Specialist
DX: N18.30 Chronic kidney disease, stage 3 unspecified (principal); I10 Essential (primary) hypertension; E11.29 Type 2 diabetes mellitus with other diabetic kidney complication; R80.9 Proteinuria, unspecified
CPT/HCPCS: 99214

== ENCOUNTER → 2025-08-14 11:11 | Outpatient (BNVA) | payer MEDICARE, MEDICAID, SELFPAY | PROVIDERS: PCP Internal Medicine; Visit Provider Internal Medicine Hypertension Specialist | DX: E11.29 Type 2 diabetes mellitus with other diabetic kidney complication (principal); E11.22 Type 2 diabetes mellitus with diabetic chronic kidney disease; I12.9 Hypertensive chronic kidney disease with stage 1 through stage 4 chronic kidney disease, or unspecified chronic kidney disease; N18.30 Chronic kidney disease, stage 3 unspecified; Z79.84 Long term (current) use of oral hypoglycemic drugs; R80.9 Proteinuria, unspecified; Z79.899 Other long term (current) drug therapy | CPT/HCPCS: 99212 ==

== ENCOUNTER 2025-09-10 13:29 | Outpatient (AMB) | payer MEDICARE, MEDICAID, SELFPAY ==
[2025-09-10 13:54] VITALS: BP 130/7; PULSE 66; BMI 26.2
--- NOTE | 2025-09-10 13:54 | A.OFFVIS_ITS ---
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 (prev Aline) Intake Note: New patient dx afib with ekg feeling good Stationary Steam Engineer Required: No Allergies No Known Allergies Allergy (Verified 08/19/25 14:21) Medication List - Last Reconciled 09/10/25 by Randy Champion MD apixaban (Eliquis) 5 mg PO BID atorvastatin 10 mg PO DAILY blood sugar diagnostic (FreeStyle Lite Strips) Check fasting blood sugar once a day before a meal brimonidine 0.2% 1 drp ophthalmic (eye) BID digoxin 250 mcg PO DAILY diltiazem HCl CD 300 mg PO DAILY hydralazine 50 mg PO TID hydrochlorothiazide 25 mg PO DAILY Jardiance (empagliflozin) 25 mg PO QAM NS lancets As directed multivitamin 1 tab PO DAILY omega-3 fatty acids 1,200 mg PO BID pioglitazone 45 mg PO DAILY repaglinide 4 mg (2 x 2 mg) PO TID 90 days HPI Comments Details: Thank you for referring Carmela in cardiology consultation today for management of atrial fibrillation and aortic regurgitation. She is a pleasant and active 75-year-old female who lives independently and takes care of her own issues at home and manage his her daily life. She says while mowing lawn she does get short of breath but she denies any progressive shortness of breath, orthopnea, PND, leg edema. She says she was 1st diagnose with atrial fibrillation 2000 when she was on the operating table for cholecystectomy and was told that her heart was abnormal. Since then she has been treated for atrial fibrillation. She had 1 time was offer her cardioversion in his seems like she might have had persistent atrial fibrillation for long period of time. She is currently on dual rate control therapy with diltiazem and digoxin. No recent digoxin assay has been performed. She was initially treated with warfarin for oral anticoagulation but since then has been switch to Eliquis 5 mg b.i.d.. She does have chronic kidney disease in his follows with Nephrology with a creatinine range of 1.46 range. She denies any bleeding issues or neurologic events. Denies any prolonged palpitation irregular heartbeat. No exertional chest pain. No lightheadedness, syncope. 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, without long-term current use of insulin Colonoscopy refused Hyperkalemia Mixed dyslipidemia Essential hypertension Diabetes mellitus with microalbuminuria, without long-term current use of insulin Surgical History History of placement of ear tubes Hx of cholecystectomy Family History Father Unknown family medical history Mother Unknown family medical history Son Mental health disorder Social History Housing: House Alcohol intake: never Patient Tobacco Use Status: Never used Tobacco e-Cigarette/Vaping Use: Never Used service: No Current occupational status: retired Cognitive needs: No Hearing needs: No Vision needs: No Review of Systems Const Denies chills, Denies daytime sleepiness, Denies fatigue, Denies fever(s), Denies frequent falls, Denies poor appetite, Denies snoring, Denies stops breathing during sleep, Denies weakness, Denies weight gain and Denies weight loss Eyes Denies loss of vision ENT Denies dizziness and Denies hearing loss Card Denies chest pain, Denies claudication, Reports leg edema, Denies lightheadedness, Denies palpitations, Denies dyspnea, Denies dyspnea on exertion and Denies orthopnea Resp Denies cough, Denies excessive phlegm production, Denies dyspnea, Denies dyspnea on exertion, Denies snoring and Denies wheezing GI Denies abdominal pain, Denies hematochezia, Denies change in bowel habits, Denies nausea and Denies vomiting Denies urinary frequency and Denies dysuria Musc Denies arthralgias, Denies muscle weakness and Denies numbness Skin/Breast Denies nail changes and Denies rash Neuro Denies Abnormal speech present, Denies dizziness, Denies frequent falls, Denies loss of vision, Denies memory loss, Denies numbness and Denies weakness Psych Denies depression and Denies memory loss Endo Denies fatigue and Denies palpitations Jose/Lymph Reports easy bruising and Reports other (anemia) Aller/Immun Denies wheezing Physical Exam Vital Signs: Last Vital Signs Pulse 66 09/10/25 13:54 BP 130/7 L 09/10/25 13:54 BMI result Body Mass Index 26.2 Const General: cooperative, comfortable, no acute distress, alert and awake Nutritional Appearance: overweight Orientation/consciousness: patient oriented x3 Limitations: no limitations HEENT Head: Yes normocephalic and Yes atraumatic Neck Neck: Yes trachea midline, Yes supple and Yes no JVD Resp Effort & Inspection: normal respiratory effort Auscultation: clear to auscultation bilaterally Cardio Jugular venous distension: no JVD Rhythm: abnormal rhythm irregularly irregular Heart sounds: S1 normal heart sound present, S2 normal heart sound present, no click, no gallops and Murmur heart sound present diastolic GI Auscultation: normal bowel sounds Skin General skin exam: no rashes or lesions noted Neuro General: patient oriented x3 and no focal motor deficits Speech: No Abnormal speech present Extrem General: Yes no clubbing, cyanosis or edema Office Procedures EKG Details: EKG shows atrial fibrillation with septal QS pattern with deep T-wave inversion with hockey-stick appearance most likely digoxin effect, ischemia can not be ruled out [id number], Complete Assessment & Plan Assessment & Plan (1) Chronic atrial fibrillation: Code(s): I48.20 - Chronic atrial fibrillation, unspecified Category: Medical Plan: Chronic atrial fibrillation for greater than definitely 5 years currently rate controlled on dual therapy with digoxin and diltiazem. Discussed that given longstanding atrial fibrillation it is unlikely to pursue rhythm control at this point time. Rate is adequately controlled. However she needs digoxin assay every 6 months. Currently orally anticoagulated with Eliquis 5 mg b.i.d.. Quarterly to semi annual renal function test should be performed especially given that she is abnormal baseline creatinine. Management of atrial fibrillation was discussed in details. Further treatment based on the findings of the echocardiogram. She does have exertional shortness of breath which is most likely related to her atrial fibrillation possibly biatrial chamber enlargement and RV enlargement as was noted on prior echocardiogram monitor outside facility. However clinically she has no signs or symptoms of heart failure. These were discussed. Advised to call me with any new symptoms. (2) Aortic regurgitation: Code(s): I35.1 - Nonrheumatic aortic (valve) insufficiency Category: Medical Plan: Aortic regurgitation which was moderate by prior echocardiogram. Follow-up echocardiogram in near future. If remains moderate no interventions required. Continue rate control approach. Will follow up in the clinic in 6 months time, sooner PRN. Thank you for allowing me to partake in her care Orders: Orders Basic Metabolic Panel Today I48.20 - Chronic atrial fibrillation, unspecified Digoxin Today I48.20 - Chronic atrial fibrillation, unspecified Complete Blood Count no Diff Today I48.20 - Chronic atrial fibrillation, unspecified NT Pro B Type Natriuretic Pept Today I48.20 - Chronic atrial fibrillation, unspecified CA echo transthoracic complete Today I35.1 - Nonrheumatic aortic (valve) insufficiency Coding Level of Care Code New Pt Level 4 (74001) Diagnoses Chronic atrial fibrillation I48.20 Aortic regurgitation I35.1 CPT Codes EKG - CPT: [id number], Complete ([id number])
== END 2025-09-10 14:28 | disposition home or self-care (01) ==
LOC: HO.HCS 13:30
PROVIDERS: PCP Internal Medicine; Visit Provider Internal Medicine Cardiovascular Disease
DX: I48.20 Chronic atrial fibrillation, unspecified (principal); I35.1 Nonrheumatic aortic (valve) insufficiency
CPT/HCPCS: 93010; 99204

== ENCOUNTER → 2025-09-10 13:29 | Outpatient (BNVA) | payer MEDICARE, MEDICAID, SELFPAY | PROVIDERS: PCP Internal Medicine; Visit Provider Internal Medicine Cardiovascular Disease | DX: I48.20 Chronic atrial fibrillation, unspecified (principal); I35.1 Nonrheumatic aortic (valve) insufficiency; Z79.01 Long term (current) use of anticoagulants; Z79.899 Other long term (current) drug therapy | CPT/HCPCS: 93005; 99202 ==

== ENCOUNTER 2025-09-13 09:41 | Outpatient (REF) | payer MEDICARE, MEDICAID, SELFPAY ==
--- OUTSIDE RECORDS SUMMARY | 2025-09-13 11:23 | XMS_ITS | Encounter Summary ---
Author Organization [facility] Address [address] [place] [address] Phone Care Team Providers Care Vein Pumper Name Role Phone Dominik Albert MD Primary Care Provider [phone] Encounter Details Date Type Department Care Team (Late st Contact Info) Description 06/30/2022 Telephone [facility] [address] [place] [address] Mony Donovan Social History Tobacco [...] Stage 3B means please call her at [phone] documented in this encounter Plan of Treatment Not on file documented as of this encounter Visit Diagnoses Not on filedocumented in this encounter Care Teams Vein Pumper Relationship Specialty Start Date End Date Dominik Albert MD PCP - General Nephrology 12/27/23 documented as of this encounter
--- OUTSIDE RECORDS SUMMARY | 2025-09-13 11:23 | XMS_ITS | Clinical Summary ---
Author Organization [facility] Address [address] [place] [address] Phone Care Team Providers Care Tea Leaf Reader Name Role Phone Dominik Albert MD Primary Care Provider [phone] Allergies No known active allergies Medications atorvastatin [...] Relevant to Health Maintenance Insurance [address] [place] [address] Medicare [facility] Medicare [facility] Care Teams Tea Leaf Reader Relationship Specialty Start Date End Date Dominik Albert MD PCP - General Nephrology 12/27/23
[2025-09-13 14:26] LABS: Hematocrit 36.8 % (37.0-47.0); Hemoglobin 11.6 g/dl (12.0-16.0); Mean Corpuscular HGB Conc 31.5 g/dl (31.0-35.0); Mean Corpuscular Hemoglobin 29.3 pg (27.0-33.0); Mean Corpuscular Volume 92.9 fL (80.0-98.0); NRBC Abs Auto 0.000 X10*3/uL (0.0-0.012); NRBC Pct Auto 0.0 /100WBC (0.0-0.2); Platelet Count 210 X10*3/uL (160-400); Red Blood Count 3.96 X10*6/uL (4.20-5.50); White Blood Count 8.4 X10*3/uL (4.8-10.8)
[2025-09-13 15:04] LABS: Anion Gap 14 (12-20); Blood Urea Nitrogen 51 mg/dL (9-16); Calcium 9.7 mg/dL (8.4-10.2); Carbon Dioxide 27 mmol/L (22-29); Chloride 105 mmol/L (96-108); Estimated Glomerular Filt Rate 36; Potassium 4.4 mmol/L (3.3-5.1); Sodium 142 mmol/L (135-145)
[2025-09-13 15:15] LABS: NT Pro B Type Natriuretic Pept 2411.0 pg/mL (<300)
[2025-09-13 15:43] LABS: Digoxin 1.4 ng/mL (0.8-2.0)
== END 2025-09-13 09:42 | disposition home or self-care (01) ==
LOC: HO.HMGCLDS 09:41
PROVIDERS: PCP Internal Medicine; Visit Provider Internal Medicine Cardiovascular Disease
DX: I48.20 Chronic atrial fibrillation, unspecified (principal)
CPT/HCPCS: 36415; 80048; 80162; 83880; 85027